=== PATIENT | female | born 1950 | race Caucasian/White ===

== ENCOUNTER 2023-02-16 08:35 | Emergency (ER) | payer MEDICARE, MEDICAID, SELFPAY ==
[2023-02-16 08:38] VITALS: BP 140/54; PULSE 82; RESP 14; TEMP 36.9; O2SAT 99; BMI 23.6
--- NOTE | 2023-02-16 08:45 | XR_ITS ---
WS: [id number] Portable AP upright chest, 02/16/2023 Clinical Data: dyspnea/cough Comparison: None. Findings: No nodules, masses or effusions are seen. The heart is normal. The pulmonary vascularity is not increased. No pneumonia or pneumothorax is seen. The aortic arch and descending thoracic aorta s how calcification and tortuosity. The diaphragms are flattened. XR/XR chest 1V portable [id number] Impression: Atherosclerosis and hyperinflation.
--- NOTE | 2023-02-16 08:46 | ECG_ITS ---
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 Measurements Intervals [place] Rate: 74 P: 92 SD: 183 QRS: 15 QRSD: 86 T: 58 QT: 376 QTc: 419 Interpretive Statements SINUS RHYTHM No previous ECG available for comparison Electronically Signed On 02-16-2023 11:56:53 CDT by Linden Christine M.D. [id number]
--- NOTE | 2023-02-16 08:46 | W.ED.SOB ---
HPI - SOB/Dyspnea General: Chief Complaint: Shortness of Breath/Dyspnea Stated Complaint: SOB Time Seen by Provider: 02/16/23 08:37 Source: patient Mode of arrival: EMS History of Present Illness: HPI Narrative: 72-year-old female who presents to the emergency room with complaints of shortness of breath. She lives in a snf she does not usually use oxygen per her initial report later family corrected and said she has been prescribed but has not been using. She did notice some improvement with the nebulizer she was given in route. She does report a productive cough low-grade subjective fever. MD elicited complaint: shortness of breath and cough Pertinent past history: COPD Onset (ago): hour(s) Timing: constant Severity: moderate Exacerbating factors: coughing Relieving factors: rest and bronchodilators Known history of: COPD Associated symptoms: Reports cough; Deny abdominal pain, chest congestion, chest pain, diaphoresis, dizziness, extremity pain, fever(s), hemoptysis, lightheadedness, myalgias, nausea, orthopnea, palpitations, paresthesias, polydipsia, polyuria, rash, sense of impending doom, syncope or vomiting Treatment prior to arrival: oxygen and bronchodilator Review of Systems Const: Denies: fever(s), chills, fatigue, malaise or diaphoresis ENMT: Denies: throat pain, ear or mastoid pain, nasal discharge or nasal congestion Card: Denies: chest pain, palpitations, lightheadedness, syncope or orthopnea Resp: Reports: dyspnea, productive cough and wheezing; Denies: hemoptysis or chest congestion GI: Denies: abdominal pain, nausea or vomiting : Denies: flank pain, difficulty voiding, dysuria, urinary frequency or urinary urgency Musc: Denies: extremity pain Skin/Breast: Denies: rash or pruritus Neuro: Denies: dizziness Endo: Denies: polyuria or polydipsia PFSH ED PFSH: Medical History (Updated 02/16/23 @ 11:08 by Ji Banegas DO) COPD (chronic obstructive pulmonary disease) Physical Exam Const: GENERAL APPEARANCE: cooperative and comfortable ORIENTATION/CONSCIOUSNESS: Yes awake, Yes oriented to person, Yes oriented to place and Yes oriented to time HENMT: COMMON NORMALS: normocephalic, atraumatic and hearing grossly normal bilaterally HEAD & SCALP: normocephalic and atraumatic Resp: EFFORT & INSPECTION: Yes audible wheezes AUSCULTATION: rhonchi, wheezes and diminished lung sounds Cardio: COMMON NORMALS: regular rate, regular rhythm and No murmurs present (Cardio) RATE: regular rate RHYTHM: regular rhythm GI: COMMON NORMALS: Soft to palpation and No hepatosplenomegaly present AUSCULTATION: Yes normoactive bowel sounds PALPATION: Yes Soft to palpation, No Tenderness to palpation present (GI), No Guarding due to palpation present (GI) and Yes No hepatosplenomegaly present Extremity: COMMON NORMALS: normal to inspection, capillary refill normal, no clubbing, cyanosis or edema, no calf tenderness and no pedal edema Neuro: SENSORIUM/ORIENTATION: Yes oriented to person, Yes oriented to place and Yes oriented to time Skin: COMMON NORMALS: no rashes or lesions noted GENERAL SKIN EXAM: no rashes or lesions noted Course Vital Signs: Vital signs: Vital Signs Temperature 98.5 F 02/16/23 08:38 Pulse Rate 97 02/16/23 10:54 Respiratory Rate 14 02/16/23 10:54 Blood Pressure 124/46 02/16/23 10:54 Pulse Oximetry 98 02/16/23 10:54 Oxygen Delivery Me thod Nasal Cannula 02/16/23 10:54 Oxygen Flow Rate 3 02/16/23 10:54 MDM - SOB/Dyspnea Medical Decision Making Exacerbation of COPD. She will require 3 L by nasal cannula. She has previously been prescribed oxygen but has not been using. Pt has still been smoking. She responded well to the nebulizers. Did been having a productive cough. Will discharge home on steroid taper doxycycline and regular use of DuoNebs. Follow-up with her primary care doctor for the snf. Medical Records I reviewed the patient's medical records. Lab Data I reviewed the patient's lab results. 02/16/23 09:18 02/16/23 09:17 Labs/Radiology: Radiology Impressions Chest X-Ray 02/16/23 08:45 Impression: Atherosclerosis and hyperinflation. Laboratory Results WBC 9.8 10^3/uL (4.0-10.0) 02/16/23 09:18 RBC 3.62 10^6/uL (4.1-5.3) L 02/16/23 09:18 Hgb 9.4 g/dL (11.5-15.3) L 02/16/23 09:18 Hct 32.1 % (37.0-47.0) L 02/16/23 09:18 MCV 88.7 fl (81-99) 02/16/23 09:18 MCH 26.0 pg (28.0-34.0) L 02/16/23 09:18 MCHC 29.3 g/dL (30.0-36.0) L 02/16/23 09:18 RDW 15.1 % (12.1-15.1) 02/16/23 09:18 Plt Count 265 10^3/cmm (130-400) 02/16/23 09:18 MPV 9.3 fL (7.4-10.4) 02/16/23 09:18 Neut % (Auto) 50.8 % 02/16/23 09:18 Lymph % (Auto) 30.2 % 02/16/23 09:18 [place] % (Auto) 8.5 % 02/16/23 09:18 Eos % (Auto) 9.4 % 02/16/23 09:18 Baso % (Auto) 0.7 % 02/16/23 09:18 Neut # (Auto) 4.96 10^3/uL (1.8-7.7) 02/16/23 09:18 Lymph # (Auto) 3.0 10^3/uL (0.8-4.8) 02/16/23 09:18 [place] # (Auto) 0.8 10^3/uL (0.2-0.9) 02/16/23 09:18 Eos # (Auto) 0.9 10^3/uL (0.0-0.8) H 02/16/23 09:18 Baso # (Auto) 0.1 10^3/uL (0.0-0.1) 02/16/23 09:18 Nucleated RBC % (auto) 0 % 02/16/23 09:18 Nucleated RBCs # 0.0 /100WBC 02/16/23 09:18 Specimen Type Arterial 02/16/23 09:17 Sample Site Radial, left 02/16/23 09:17 ABG pH 7.35 (7.35-7.45) 02/16/23 09:17 ABG pCO2 51.3 mmHg (35-45) H 02/16/23 09:17 ABG pO2 45.4 mmHg (80.0-100.0) L 02/16/23 09:17 ABG HCO3 28.3 mmol/L (22-26) H 02/16/23 09:17 ABG O2 Saturation 81.1 02/16/23 09:17 ABG Base Excess 2.0 mmol/L (-2.0-2.0) 02/16/23 09:17 Emmett Test Pos 02/16/23 09:17 A-a O2 Gradient 11.9 mmHg (5-10) H 02/16/23 09:17 Hematocrit 31.8 % (37-47) L 02/16/23 09:17 Hgb O2 Saturation 79.6 % (95-100) L 02/16/23 09:17 Carboxyhemoglobin 1.3 %THgb (0.4-20.1) 02/16/23 09:17 Methemoglobin 0.5 % (0.4-1.5) 02/16/23 09:17 Total Hemoglobin 10.4 g/dL (12-16) L 02/16/23 09:17 Sodium 144.0 mmol/L (131-143) H 02/16/23 09:17 Potassium 4.6 mmol/L (3.5-5.0) 02/16/23 09:17 Glucose 93.0 mg/dL (70-115) 02/16/23 09:17 Ionized Calcium 1.3 mmol/L (1.1-1.4) 02/16/23 09:17 O2 Delivery Device Nc 02/16/23 09:17 O2 Liters/Min 2.0 % 02/16/23 09:17 FiO2 28.0 % 02/16/23 09:17 Welding Technician ID Cak 02/16/23 09:17 Sodium 141 mmol/L (136-145) 02/16/23 09:17 Potassium 4.8 mmol/L (3.5-5.1) 02/16/23 09:17 Chloride 105 mmol/L (98-107) 02/16/23 09:17 Carbon Dioxide 25 mmol/L (22-29) 02/16/23 09:17 Anion Gap 15.8 (5-19) 02/16/23 09:17 BUN 15 mg/dL (8-23) 02/16/23 09:17 Creatinine 1.3 mg/dL (0.5-0.9) H 02/16/23 09:17 GFR Calculation Not Reportable 02/16/23 09:17 Glucose 93 mg/dL (65-115) 02/16/23 09:17 Calculated Osmolality 293 mOsm/kg (285-295) 02/16/23 09:17 Calcium 9.1 mg/dL (8.5-10.5) 02/16/23 09:17 Total Bilirubin 0.2 mg/dL (0.15-1.2) 02/16/23 09:17 AST 24 U/L (0-32) 02/16/23 09:17 ALT 12 U/L (0-33) 02/16/23 09:17 Alkaline Phosphatase 112 U/L (35-105) H 02/16/23 09:17 Troponin T Baseline 12 ng/L (0-10) H 02/16/23 09:17 Total Protein 7.2 g/dL (6.6-8.7) 02/16/23 09:17 Albumin 4.0 g/dL (3.5-5.2) 02/16/23 09:17 Globulin 3.2 g/dL (1.3-4.6) 02/16/23 09:17 Discharge Plan Discharge Patient Disposition: Home Clinical Impression: Acute exacerbation of chronic obstructive airways disease Condition: Stable Prescriptions: New doxycycline hyclate 100 mg capsule 100 mg PO BID 10 Days Qty: 20 0RF prednisone 20 mg tablet 20 mg PO TID Qty: 15 0RF Rx Instructions: 1 p.o. 3 times daily x3 days, 1 p.o. twice daily x2 days, 1 p.o. daily x2 days ipratropium-albuterol 0.5 mg-3 mg(2.5 mg base)/3 mL solution for nebulization 3 ml inhalation Q4H PRN (Reason: shortness of breath or wheezing) Qty: 180 0RF No Action Tylenol 325 mg Tablet 650 mg PO QID PRN (Reason: Pain) hydrocodone-acetaminophen 5-325 mg tablet 1 tab PO BID hydrocodone-acetaminophen 5-325 mg tablet 1 tab PO DAILY PRN (Reason: Pain) Aspir-81 81 mg Tablet,Delayed Release (Dr/Ec) 81 mg PO DAILY simvastatin 40 mg tablet 40 mg PO BEDTIME Milk of Magnesia 400 mg/5 mL Suspension 30 ml PO DAILY PRN (Reason: Constipation) Dulcolax (bisacodyl) 10 mg Suppository 10 mg OK DAILY PRN (Reason: Constipation) ropinirole 0.5 mg tablet 0.5 mg PO BEDTIME magnesium citrate Solution 150 ml PO DAILY PRN (Reason: Constipation) montelukast 10 mg tablet 10 mg PO QPM Dulcolax (bisacodyl) 5 mg Tablet,Delayed Release (Dr/Ec) 5 mg PO DAILY PRN (Reason: Constipation) Mylanta 200-200-20 mg/5 mL Suspension 5 ml PO 5XD PRN (Reason: Constipation) Rx Instructions: administer between meals and at bedtime albuterol sulfate 90 mcg/actuation HFA aerosol inhaler 2 puff INHALATION Q6H PRN (Reason: Shortness Of Breath Or Wheezing) sertraline 50 mg tablet 75 mg PO BEDTIME loratadine 10 mg Tablet 10 mg PO DAILY Multivitamin w/Minerals, Iron Tablet 1 tab PO DAILY bupropion HCl 300 mg tablet extended release 24 hr 300 mg PO DAILY sertraline 100 mg tablet 100 mg PO QPM Discharge Orders: Discharge ED (Routine); Ordered 02/16/23 Ordered By: Ji Banegas Discharge Diet: Usual diet Discharge Activity: Increase activity as tolerated Patient Instructions: COPD (Chronic Obstructive Pulmonary Disease) (ED), Opioid Safety, Pain Management Activity Restrictions/Additional Instructions: You were seen today for evaluation of your breathing. Chest x-ray did not show an acute infiltrates. Given your productive cough and wheezing with your history of COPD recommend a steroid taper as well as regular use of albuterol ipratropium bromide nebulizers and doxycycline 1 tablet twice daily for 10 days. Follow-up with your regular doctor at the snf. Also recommend that you wear oxygen 3 L/min continuously. Coding Level of Care Code ED Compression Molding Machine Setter for Olga Solo
[2023-02-16 09:03] VITALS: PULSE 75; RESP 20; O2SAT 96
[2023-02-16] MEDS: ipratropium-albuterol 3 mL Neb INHALATION ×2 (09:03→09:36)
[2023-02-16 09:24] VITALS: PULSE 79
[2023-02-16 09:28] LABS: ABG PCO2 51.3 mmHg (35-45); ABG PH Result 7.35 (7.35-7.45); Alveolar-Arterial Oxygen Gradi 11.9 mmHg (5-10); Arterial Blood Gas Hematocrit 31.8 % (37-47); Blood Gas Allen Test Pos; Blood Gas Operator Identificat CAK; Blood Gas Sample Site Radial, left; Blood Gas Sample Type Arterial; Carboxyhemoglobin 1.3 %THgb (0.4-20.1); HCO3 ABG 28.3 mmol/L (22-26); HGB O2 Sat 79.6 % (95-100); Ionized Calcium Level - ABG 1.3 mmol/L (1.1-1.4); Methemoglobin 0.5 % (0.4-1.5); Oxygen Device NC; Oxygen Saturation ABG 81.1; PO2 ABG 45.4 mmHg (80.0-100.0); Potassium Level - ABG 4.6 mmol/L (3.5-5.0); Total Hemoglobin 10.4 g/dL (12-16)
[2023-02-16 09:31] LABS: Basophils # 0.1 10^3/uL (0.0-0.1); Basophils % 0.7 %; Eosinophils # 0.9 10^3/uL (0.0-0.8); Eosinophils % 9.4 %; Hematocrit 32.1 % (37.0-47.0); Hemoglobin 9.4 g/dL (11.5-15.3); Lymphocytes % 30.2 %; Mean Corpuscular HGB Conc 29.3 g/dL (30.0-36.0); Mean Corpuscular Volume 88.7 fl (81-99); Mean Platelet Volume 9.3 fL (7.4-10.4); Monocytes # 0.8 10^3/uL (0.2-0.9); Monocytes % 8.5 %; Neutrophils # 4.96 10^3/uL (1.8-7.7); Neutrophils % 50.8 %; Nucleated Red Blood Cells % 0 %; Platelet Count 265 10^3/cmm (130-400); Red Blood Count 3.62 10^6/uL (4.1-5.3); Red Cell Distribution Width 15.1 % (12.1-15.1); White Blood Count 9.8 10^3/uL (4.0-10.0)
[2023-02-16] MEDS: dexamethasone 10 mg/mL INJ IVP (09:31)
[2023-02-16 09:37] VITALS: PULSE 75; RESP 24; O2SAT 99
[2023-02-16 09:50] LABS: Alanine Aminotransferase 12 U/L (0-33); Alkaline Phosphatase 112 U/L (35-105); Anion Gap 15.8 (5-19); Aspartate Amino Transferase 24 U/L (0-32); Blood Urea Nitrogen 15 mg/dL (8-23); Calcium 9.1 mg/dL (8.5-10.5); Carbon Dioxide 25 mmol/L (22-29); Chloride 105 mmol/L (98-107); Globulin 3.2 g/dL (1.3-4.6); Glucose 93 mg/dL (65-115); Osmolality Calculated 293 mOsm/kg (285-295); Potassium 4.8 mmol/L (3.5-5.1); Sodium 141 mmol/L (136-145); Total Bilirubin 0.2 mg/dL (0.15-1.2); Total Protein 7.2 g/dL (6.6-8.7)
[2023-02-16 09:52] LABS: Troponin(5th) Baseline 12 ng/L (0-10)
--- NOTE | 2023-02-16 10:51 | ECG_ITS ---
[facility] Test Date: 2023-02-16 Pat Name: Ev Chaves Department: Room: Gender: Female Bargain Table Clerk: : 1950 Requested By: Ji Pedraza Order Number: [id number] Reading MD: Linden Christine M.D. Measurements Intervals [place] Rate: 77 P: 75 RI: 180 QRS: 9 QRSD: 89 T: 54 QT: 385 QTc: 438 Interpretive Statements SINUS RHYTHM Compared to ECG 02/16/2023 09:02:34 No significant changes Electronically Signed On 02-16-2023 11:59:51 CDT by Linden Christine M.D. [email or web address] [email or web address] river gulfportCodeMonkey Studiosohiohealth arthur g.h. bing, md, cancer centerELENZA/store/OM/[id number]
[2023-02-16 10:54] VITALS: BP 124/46; PULSE 97; RESP 14; O2SAT 98
== END 2023-02-16 14:32 | disposition home or self-care (01) ==
PROVIDERS: Emergency Provider Family Medicine; PCP Student in an Organized Health Care Education/Training Program
DX: J44.1 Chronic obstructive pulmonary disease with (acute) exacerbation (principal); Z79.82 Long term (current) use of aspirin
CPT/HCPCS: 36415; 36600; 71045; 80051; 80053; 82330; 82805; 84484; 85025; 87070; 87077; 87186; 87205; 93005; 94640; 96374; 99285; J1100

== ENCOUNTER 2023-08-03 19:25 | Inpatient (IN) | payer MEDICARE, MEDICAID, SELFPAY ==
[2023-08-03] VITALS (7 sets, daily range): BP systolic 98–120; BP diastolic 59–84; PULSE 81–103; RESP 16–25; TEMP 36.4–36.6; O2SAT 95–100; BMI 20.9
--- NOTE | 2023-08-03 19:34 | XRR_ITS ---
PROCEDURE INFORMATION: Exam: XR Chest Exam date and time: 08/03/2023 7:44 PM Age: 73 years old Clinical indication: Shortness of breath; Patient HX: Respiratory distress; Copd TECHNIQUE: Imaging protocol: Radiologic exam of the chest. Views: 1 view. COMPARISON: CR XR chest 1V portable [id number] 02/16/2023 9:44 AM FINDINGS: Lungs: Lungs are hyperinflated. Clear parenchyma. Pleural spaces: No pleural effusion. No pneumothorax. Heart/Mediastinum: Cardiac silhouette is normal in size for technique. Vasculature: Calcified aortic arch without dilation. Bones/joints: Age appropriate. XR/XR chest 1V portable [id number] IMPRESSION: Hyperinflated but clear lungs. No other acute cardiopulmonary abnormality. No change from prior.
--- NOTE | 2023-08-03 19:35 | ECG_ITS ---
[facility] Test Date: 2023-08-03 Pat Name: Ev Chaves Department: Room: Gender: Female Warehouse Manager: : 1950 Requested By: Stas Brunson Order Number: [id number] Theo MD: Alaina Haile M.D. Measurements Intervals [place] Rate: 89 P: 0 [place]: 0 QRS: 38 QRSD: 96 T: 70 QT: 363 QTc: 442 Interpretive Statements SUPRAVENTRICULAR RHYTHM ABNORMAL RHYTHM ECG Compared to ECG 02/16/2023 10:51:49 Supraventricular rhythm now present Sinus rhythm no longer present Electronically Signed On 08-03-2023 22:23:38 CDT by Alaina Haile M.D. [email or web address]/[id number]
--- NOTE | 2023-08-03 19:36 | ED_ITS ---
HPI - SOB/Dyspnea General: Chief Complaint: Shortness of Breath/Dyspnea Stated Complaint: RESP. DISTRESS Time Seen by Provider: 08/03/23 19:28 History of Present Illness: HPI Narrative: 73-year-old female senior living patient from [place]. She presents short of breath. According to senior living staff, she was in her normal state of health until earlier today. She suddenly became short of breath. She is experiencing some mild chest discomfort, but very short of breath. No fever. She says she has not gained water weight she believes. No increased swelling. No significant cough or sputum production by the patient's history, although she does have a history of dementia. She was placed on CPAP by the EMS crew with improvement in oxygenation status. She was also given nitroglycerin for increased blood pressure, as well as albuterol treatments. Associated symptoms: Reports chest pain (Mild); Deny abdominal pain, fever(s), nausea or vomiting Review of Systems Const: Denies: fever(s) ENMT: Denies: throat pain Card: Reports: chest pain (Mild); Denies: swelling of feet/ankles Resp: Reports: dyspnea; Denies: productive cough or non-productive cough GI: Denies: abdominal pain, nausea or vomiting PFSH ED PFSH: Medical History COPD (chronic obstructive pulmonary disease) Dementia Social History Smoking and tobacco/nicotine status: current every day tobacco/nicotine user Physical Exam Const: GENERAL APPEARANCE: cooperative and ill appearing HENMT: COMMON NORMALS: normocephalic and atraumatic HEAD & SCALP: normocephalic and atraumatic FACE & SINUS: normal facial exam Eye: COMMON NORMALS: Equal, round and reactive pupils present and EOMs intact bilaterally PUPIL: Yes Equal, round and reactive pupils present Neck/C-Spine: GENERAL: Yes trachea midline Chest: CHEST: Yes Symmetrical chest wall rise Resp: EFFORT & INSPECTION: No able to speak in complete sentences and Yes tachypneic AUSCULTATION: rales and diminished lung sounds Cardio: COMMON NORMALS: regular rate and regular rhythm RATE: regular rate RHYTHM: regular rhythm GI: COMMON NORMALS: Normal to inspection, nondistended, normoactive bowel sounds present Extremity: COMMON NORMALS: no pedal edema Course Vital Signs: Vital signs: Vital Signs Temperature 97.8 F 08/04/23 03:55 Pulse Rate 85 08/04/23 03:55 Respiratory Rate 16 08/04/23 03:55 Blood Pressure 110/68 08/04/23 03:55 Pulse Oximetry 99 08/04/23 03:55 Oxygen Delivery Me thod BiPAP 08/04/23 03:55 Fraction of Inspir ed Oxygen 50 08/03/23 19:48 MDM - SOB/Dyspnea Medical Decision Making Patient is placed on BiPAP on arrival. Saturations on nonrebreather mask on her arrival were in the high 80s. She is currently 95% on BiPAP. Blood pressure 102/59. She is awake and talking. Much improved on BiPAP ventilation. Saturations are 100%. Sinus at 83 blood pressure 117/71. Respiration rate is down. White blood cell count is 14. No infiltrate on chest x-ray. First troponin is elevated. No ischemic EKG changes associated with this. ABG shows a pH of 7.31 with PCO2 of 50 and a PO2 of 100. This is at 0.5 FiO2. Lung sounds are wet, but BNP is only 178. Blood pressures improved now as well. She is given DuoNeb treatments, Solu-Medrol. She will be admitted for COPD exacerbation with hypercapnic hypoxic respiratory failure. Hospitalist will see the patient. She is a DNR. Lab Data 08/04/23 01:29 08/04/23 01:29 Labs/Radiology: Radiology Impressions Chest X-Ray 08/03/23 19:34 IMPRESSION: Hyperinflated but clear lungs. No other acute cardiopulmonary abnormality. No change from prior. Laboratory Results WBC 13.99 10^3/uL (3.29-11.43) H 08/03/23 19:45 RBC 3.91 10^6/uL (3.85-5.65) 08/03/23 19:45 Hgb 10.50 g/dL (11.27-16.99) L 08/03/23 19:45 Hct 34.8 % (36-47) L 08/03/23 19:45 MCV 89.0 fl (85-98) 08/03/23 19:45 MCH 26.9 pg (27-33) L 08/03/23 19:45 MCHC 30.2 g/dL (30-55) 08/03/23 19:45 RDW 17.2 % (12.1-15.1) H 08/03/23 19:45 Plt Count 319 10^3/cmm (157-399) 08/03/23 19:45 MPV 10.1 fL (7.4-10.4) 08/03/23 19:45 Neut % (Auto) 60.2 % 08/03/23 19:45 Lymph % (Auto) 26.1 % 08/03/23 19:45 [place] % (Auto) 6.1 % 08/03/23 19:45 Eos % (Auto) 6.6 % 08/03/23 19:45 Baso % (Auto) 0.6 % 08/03/23 19:45 Neut # (Auto) 8.42 10^3/uL (1.8-7.7) H 08/03/23 19:45 Lymph # (Auto) 3.7 10^3/uL (0.8-4.8) 08/03/23 19:45 [place] # (Auto) 0.9 10^3/uL (0.2-0.9) 08/03/23 19:45 Eos # (Auto) 0.9 10^3/uL (0.0-0.8) H 08/03/23 19:45 Baso # (Auto) 0.1 10^3/uL (0.0-0.1) 08/03/23 19:45 Nucleated RBC % (auto) 0 % 08/03/23 19:45 Nucleated RBCs # 0.0 /100WBC 08/03/23 19:45 Specimen Type Arterial 08/03/23 19:37 Sample Site Brachial, left 08/03/23 19:37 ABG pH 7.31 (7.35-7.45) L 08/03/23 19:37 ABG pCO2 50.1 mmHg (35-45) H 08/03/23 19:37 ABG pO2 103.0 mmHg (80.0-100.0) H 08/03/23 19:37 ABG HCO3 25.3 mmol/L (22-26) 08/03/23 19:37 ABG Base Excess -1.3 mmol/L (-2.0-2.0) 08/03/23 19:37 Emmett Test N/a 08/03/23 19:37 Hematocrit 32.7 % (37-47) L 08/03/23 19:37 Hgb O2 Saturation 96.6 % (95-100) 08/03/23 19:37 Carboxyhemoglobin 1.9 %THgb (0.4-20.1) 08/03/23 19:37 Methemoglobin 0.4 % (0.4-1.5) 08/03/23 19:37 Total Hemoglobin 10.7 g/dL (12-16) L 08/03/23 19:37 O2 Delivery Device Bipap 08/03/23 19:37 FiO2 50.0 % 08/03/23 19:37 Dentofacial Orthopedics Dentist ID [email or web address] 08/03/23 19:37 Sodium 138 mmol/L (136-145) 08/03/23 20:41 Potassium 4.4 mmol/L (3.5-5.1) 08/03/23 20:41 Chloride 102 mmol/L (98-107) 08/03/23 20:41 Carbon Dioxide 28 mmol/L (22-29) 08/03/23 20:41 Anion Gap 12.4 (5-19) 08/03/23 20:41 BUN 16 mg/dL (8-23) 08/03/23 20:41 Creatinine 1.4 mg/dL (0.5-0.9) H 08/03/23 20:41 GFR Calculation Not Reportable 08/03/23 20:41 Glucose 155 mg/dL (65-115) H 08/03/23 20:41 Calculated Osmolality 290 mOsm/kg (285-295) 08/03/23 20:41 Lactic Acid 1.3 mmol/L (0.5-2.2) 08/03/23 19:45 Calcium 9.3 mg/dL (8.5-10.5) 08/03/23 20:41 Total Bilirubin 0.2 mg/dL (0.15-1.2) 08/03/23 20:41 AST 17 U/L (0-32) 08/03/23 20:41 ALT 10 U/L (0-33) 08/03/23 20:41 Alkaline Phosphatase 128 U/L (35-105) H 08/03/23 20:41 Troponin T Baseline 68 ng/L (0-10) H 08/03/23 19:45 NT-Pro-B Natriuret Pep 178 pg/mL (0-450) 08/03/23 19:45 Total Protein 7.0 g/dL (6.6-8.7) 08/03/23 20:41 Albumin 4.0 g/dL (3.5-5.2) 08/03/23 20:41 Globulin 3.0 g/dL (1.3-4.6) 08/03/23 20:41 All radiology interpretation(s) finalized by discharge Discharge Plan Discharge Patient Disposition: Admitted As Inpatient Admit Provider: Pablo Powers Clinical Impression: Acute exacerbation of chronic obstructive airways disease, Acute respiratory fa ilure with hypoxia and hypercapnia Condition: Stable Coding Level of Care Code ED Lime Mixer for Olga Solo
[2023-08-03 19:46] LABS: ABG PCO2 50.1 mmHg (35-45); ABG PH Result 7.31 (7.35-7.45); Arterial Blood Gas Hematocrit 32.7 % (37-47); Base Excess ABG -1.3 mmol/L (-2.0-2.0); Blood Gas Sample Site Brachial, left; Blood Gas Sample Type Arterial; Carboxyhemoglobin 1.9 %THgb (0.4-20.1); HCO3 ABG 25.3 mmol/L (22-26); HGB O2 Sat 96.6 % (95-100); Methemoglobin 0.4 % (0.4-1.5); Oxygen Device BIPAP; Total Hemoglobin 10.7 g/dL (12-16)
[2023-08-03 19:57] LABS: Basophils # 0.1 10^3/uL (0.0-0.1); Basophils % 0.6 %; Eosinophils # 0.9 10^3/uL (0.0-0.8); Eosinophils % 6.6 %; Hematocrit 34.8 % (36-47); Lymphocytes # 3.7 10^3/uL (0.8-4.8); Lymphocytes % 26.1 %; Mean Corpuscular HGB Conc 30.2 g/dL (30-55); Mean Corpuscular Hemoglobin 26.9 pg (27-33); Mean Platelet Volume 10.1 fL (7.4-10.4); Monocytes # 0.9 10^3/uL (0.2-0.9); Monocytes % 6.1 %; Neutrophils # 8.42 10^3/uL (1.8-7.7); Neutrophils % 60.2 %; Nucleated Red Blood Cells % 0 %; Platelet Count 319 10^3/cmm (157-399); Red Blood Count 3.91 10^6/uL (3.85-5.65); Red Cell Distribution Width 17.2 % (12.1-15.1); White Blood Count 13.99 10^3/uL (3.29-11.43)
[2023-08-03] MEDS: FUROsemide 10 mg/mL SDV 10mL 80 MG IVP (20:18)
[2023-08-03 20:39] LABS: Lactic Sepsis W/Reflex 1.3 mmol/L (0.5-2.2)
[2023-08-03 20:43] LABS: Troponin(5th) Baseline 68 ng/L (0-10)
[2023-08-03 20:48] LABS: NT Pro B Type Natriuretic Pept 178 pg/mL (0-450)
[2023-08-03 21:13] LABS: Alanine Aminotransferase 10 U/L (0-33); Alkaline Phosphatase 128 U/L (35-105); Anion Gap 12.4 (5-19); Aspartate Amino Transferase 17 U/L (0-32); Blood Urea Nitrogen 16 mg/dL (8-23); Calcium 9.3 mg/dL (8.5-10.5); Carbon Dioxide 28 mmol/L (22-29); Chloride 102 mmol/L (98-107); Glucose 155 mg/dL (65-115); Osmolality Calculated 290 mOsm/kg (285-295); Potassium 4.4 mmol/L (3.5-5.1); Sodium 138 mmol/L (136-145); Total Bilirubin 0.2 mg/dL (0.15-1.2)
[2023-08-03 22:14] LABS: Troponin 5 2HR 198.5 ng/L (0-10); Troponin 5 2HR Delta 130.5 ABS# (0-10)
--- NOTE | 2023-08-03 22:14 | P.HP_ITS ---
Providers/Chief Complaint Primary Care Provider: Fred Treviño Chief Complaint: RESP. DISTRESS History of Present Illness Pleasant 73-year-old lady with history of COPD on 3L NC, cigarette dependence, dementia, CKD, assisted resident, was brought into the ER for evaluation due to confusion, shortness of breath, oxygen saturations found to be in the 60s on 4 L nasal cannula, was started on nonrebreather by EMS with improvement up to low to mid 80s. Also hypertensive. Received albuterol neb, nitroglycerin, in ER had to be started on BiPAP support, persistent hypoxia, ABG with respiratory acidosis, also received additional nebulization, Solu-Medrol, dose of Lasix. Improved slightly but could not wean off of BiPAP to nonrebreather recurrent desaturation, at this time BiPAP. She has dementia, unable to provide significant history, history of a review of systems, does state she has been having productive cough. Review of Systems Const: Denies: fever(s), chills, body aches or malaise ENMT: Denies: throat pain Card: Denies: chest pain, edema, pre-syncope or dyspnea on exertion Resp: Reports: dyspnea and productive cough; Denies: change in phlegm color or hemoptysis GI: Denies: abdominal pain, nausea, vomiting, diarrhea, constipation, hematochezia or melena : Denies: flank pain, urinary frequency or hematuria Musc: Denies: back pain, joint swelling or joint redness Skin/Breast: Denies: rash or new lesions Neuro: Denies: headache(s), numbness in extremities, weakness in extremities, dizziness, confusion or seizure-like activity Medications/Allergies Home Medications Medication Instructions Recorded Confirmed Last Taken Type acetaminophen 325 mg tablet 650 mg PO QID PRN Pain 02/16/23 02/16/23 Unknown History (Tylenol) albuterol sulfate 90 mcg/actuation 2 puff inhalation Q6H PRN 02/16/23 02/16/23 02/16/23 History aerosol inhaler Shortness Of Breath Or Wheezing aluminum-mag hydroxide-simethicone 5 ml PO 5XD PRN Constipation 02/16/23 02/16/23 Unknown History 200 mg-200 mg-20 mg/5 mL oral susp aspirin 81 mg tablet,delayed 81 mg PO DAILY 02/16/23 02/16/23 Unknown History release bisacodyl 10 mg rectal suppository 10 mg TX DAILY PRN Constipation 02/16/23 02/16/23 Unknown History (Dulcolax (bisacodyl)) bisacodyl 5 mg tablet,delayed 5 mg PO DAILY PRN Constipation 02/16/23 02/16/23 Unknown History release (Dulcolax (bisacodyl)) bupropion HCl 300 mg 24 hr tablet, 300 mg PO DAILY 02/16/23 02/16/23 Unknown History extended release geriatric [id number] 1 tab PO DAILY 02/16/23 02/16/23 Unknown History hydrocodone 5 mg-acetaminophen 325 1 tab PO BID 02/16/23 02/16/23 Unknown History mg tablet hydrocodone 5 mg-acetaminophen 325 1 tab PO DAILY PRN Pain 02/16/23 02/16/23 Unknown History mg tablet ipratropium 0.5 mg-albuterol 3 mg 3 ml inhalation Q4H PRN shortness 02/16/23 Unknown Rx (2.5 mg base)/3 mL nebulization of breath or wheezing #180 mL soln loratadine 10 mg tablet 10 mg PO DAILY 02/16/23 02/16/23 Unknown History magnesium citrate 150 ml PO DAILY PRN Constipation 02/16/23 02/16/23 Unknown History magnesium hydroxide 400 mg/5 mL 30 ml PO DAILY PRN Constipation 02/16/23 02/16/23 Unknown History oral suspension (Milk of Magnesia) montelukast 10 mg tablet 10 mg PO QPM 02/16/23 02/16/23 Unknown History prednisone 20 mg tablet 20 mg PO TID #15 tabs 02/16/23 Unknown Rx ropinirole 0.5 mg tablet 0.5 mg PO BEDTIME 02/16/23 02/16/23 Unknown History sertraline 100 mg tablet 100 mg PO QPM 02/16/23 02/16/23 Unknown History sertraline 50 mg tablet 75 mg PO BEDTIME 02/16/23 02/16/23 Unknown History simvastatin 40 mg tablet 40 mg PO BEDTIME 02/16/23 02/16/23 Unknown History Allergies Allergy/AdvReac Type Severity Reaction Status Date / Time Penicillins Allergy Unknown Verified 02/16/23 09:30 tiotropium Allergy Unknown Verified 02/16/23 09:30 [From Spiriva with HandiHaler] PFSH Acute PFSH: Medical History COPD (chronic obstructive pulmonary disease) Dementia Social History Smoking and tobacco/nicotine status: current every day tobacco/nicotine user Vitals/I&O/Wt Last Vital Signs Temp 97.6 F 08/03/23 19:29 Pulse 96 08/03/23 21:23 Resp 21 H 08/03/23 21:23 BP 120/82 08/03/23 21:23 Pulse Ox 100 08/03/23 21:23 O2 Del Method BiPAP 08/03/23 20:22 FiO2 50 08/03/23 19:48 Weight last 48 hrs Weight 58.967 kg Physical Exam Const: GENERAL APPEARANCE: cooperative ORIENTATION/CONSCIOUSNESS: Yes awake HENMT: COMMON NORMALS: oropharynx normal Neck/C-Spine: COMMON NORMALS: no JVD Resp: AUSCULTATION: diminished lung sounds Cardio: COMMON NORMALS: no JVD, regular rhythm, S1 normal heart sound present, S2 normal heart sound present and No murmurs present (Cardio) RHYTHM: regular rhythm HEART SOUNDS: S1 normal heart sound present and S2 normal heart sound present GI: COMMON NORMALS: Normal to inspection, nondistended, normoactive bowel sounds present, Soft to palpation and non-tender PALPATION: Yes Soft to palpation Extremity: COMMON NORMALS: no joint enlargement and no pedal edema Neuro: COMMON NORMALS: moves all extremities SENSORIUM/ORIENTATION: Yes alert Data 08/03/23 19:45 08/03/23 20:41 A&P Assessment and plan (1) Acute respiratory failure with hypoxia and hypercapnia: Reviewed vitals, ABG, CBC, CMP, chest x-ray, EKG, troponin series baseline and 2-hour so far, NT-proBNP. Discussed with ER physician, ER documentation reviewed. She is unable to provide history, history is to be obtained from records, including transfer records, as well as ER staff. Acute hypoxic and hypercapnic respiratory failure secondary to severe exacerbation of COPD. Respiratory viral panel has been requested and pending. Requiring BiPAP support, could not wean back down to nasal breather. Initially consideration of CHF, but does not appear to have symptoms, no obvious congestion on chest x-ray on my interpretation, NT proBNP not elevated. Treatment for COPD exacerbation, BiPAP support, wean down as tolerating. Continue treatment with IV steroids with Solu-Medrol, empiric antibiotic coverage, has an allergy noted, will provide coverage with Levaquin at this time. Collect sputum culture. Sputum culture from February noted. CODE STATUS is DNR which was confirmed with family in ER, but she is not on hospice. (2) Acute exacerbation of chronic obstructive airways disease: As above. Plan History of dementia Left toe wound: Wound care CKD: Renal function appears at baseline Attestations Medical Necessity Statement*: Admission of over 2 midnights anticipated for assessment management of hypoxic and hypercapnic respiratory failure. Diagnoses Acute respiratory failure with hypoxia and hypercapnia J96.01; J96.02 Acute exacerbation of chronic obstructive airways disease J44.1
[2023-08-03] MEDS: levofloxacin-dextrose 5 % 750 MG/150 ML PREMIX 100 MG IV (23:27)
[2023-08-03] MEDS: heparin 5,000 unit/mL INJ 1 mL 5000 UNIT SUBCUT (23:30)
[2023-08-04] VITALS (9 sets, daily range): BP systolic 95–110; BP diastolic 62–68; PULSE 72–86; RESP 16–18; TEMP 36.6–36.8; O2SAT 97–99
[2023-08-04 01:00] LABS: Adenovirus Not Detected (NOT DETECT); Chlamydia Pneumoniae Not Detected (NOT DETECT); Coronavirus 229E,HKU1,NL63,OC4 Not Detected (NOT DETECT); Human Metapneumovirus Not Detected (NOT DETECT); Human Rhinovirus/Enterovirus Not Detected (NOT DETECT); Influenza A Not Detected (NOT DETECT); Influenza A H1 Not Detected (NOT DETECT); Influenza A H1-2009 Not Detected (NOT DETECT); Influenza A H3 Not Detected (NOT DETECT); Influenza B Not Detected (NOT DETECT); Mycoplasma Pneumoniae Not Detected (NOT DETECT); Parainfluenza Virus Type 1 Not Detected (NOT DETECT); Parainfluenza Virus Type 2 Not Detected (NOT DETECT); Parainfluenza Virus Type 3 Not Detected (NOT DETECT); Parainfluenza Virus Type 4 Not Detected (NOT DETECT); Respiratory Syncytial Virus A Not Detected (NOT DETECT); Respiratory Syncytial Virus B Not Detected (NOT DETECT); SARS-COV-2 Not Detected (NOT DETECT)
[2023-08-04 01:48] LABS: Basophils # 0.1 10^3/uL (0.0-0.1); Basophils % 0.6 %; Eosinophils # 0.2 10^3/uL (0.0-0.8); Eosinophils % 1.7 %; Hematocrit 34.7 % (36-47); Lymphocytes # 2.5 10^3/uL (0.8-4.8); Lymphocytes % 27.3 %; Mean Corpuscular HGB Conc 30.5 g/dL (30-55); Mean Corpuscular Hemoglobin 26.6 pg (27-33); Mean Corpuscular Volume 87.2 fl (85-98); Mean Platelet Volume 9.4 fL (7.4-10.4); Monocytes # 0.8 10^3/uL (0.2-0.9); Monocytes % 9.2 %; Neutrophils # 5.54 10^3/uL (1.8-7.7); Neutrophils % 60.9 %; Nucleated Red Blood Cells % 0 %; Platelet Count 293 10^3/cmm (157-399); Red Blood Count 3.98 10^6/uL (3.85-5.65); Red Cell Distribution Width 16.7 % (12.1-15.1); White Blood Count 9.09 10^3/uL (3.29-11.43)
[2023-08-04 02:16] LABS: Anion Gap 14.6 (5-19); Blood Urea Nitrogen 16 mg/dL (8-23); Calcium 9.8 mg/dL (8.5-10.5); Carbon Dioxide 28 mmol/L (22-29); Chloride 103 mmol/L (98-107); Glucose 121 mg/dL (65-115); Osmolality Calculated 294 mOsm/kg (285-295); Potassium 4.6 mmol/L (3.5-5.1); Sodium 141 mmol/L (136-145)
[2023-08-04 02:18] LABS: Troponin 5 6HR 254.6 ng/L (0-10); Troponin 5 6HR Delta 186.6 ng/L (0-12)
[2023-08-04] MEDS: aspirin 325 mg Tablet PO (03:37)
[2023-08-04] MEDS: enoxaparin 60 mg/0.6 mL Syringe SUBCUT ×2 (03:37→16:01)
[2023-08-04] MEDS: methylPREDNISolone sod succ 40 MG in water for injection-sterile 1 ML 12 MG IVP ×3 (04:39→23:09)
--- NOTE | 2023-08-04 06:00 | USCV_ITS ---
Ev Chaves Age: 73 Gender: F : 1950 Exam Date: 08/04/2023 08:10 Ordering Phys: Pablo Powers MD Technologist: Fuentes Briggs Exam Location: [facility] [place] Indication: resp fail BP: 110 / 68 HR: 78 Rhythm: Sinus Technical Quality: Adequate MEASUREMENTS (Male / Female) Normal Values 2D ECHO LVOT Diameter 2.1 cm LV Ejection Fraction MOD 2C 71.7 % LV Ejection Fraction 2C AL 73.2 % LA Diameter 3.2 cm LA Width 2.4 cm LA Height 4.4 cm RA Width 2.1 cm RA Height 3.7 cm Aorta at Sinotubular Diameter 1.9 cm IVC Diameter 1.8 cm M-MODE Aortic Annulus Diameter 2.3 cm LA Ao Ratio MM 1.4 DOPPLER AV Peak Velocity 232.7 cm/s LVOT Peak Velocity 124.0 cm/s AV Area Cont Eq vti 1.9 cm squared AV Area Cont Eq pk 1.8 cm squared MV Peak Velocity 144.0 cm/s MV Area PHT 3.4 cm squared Mitral E to A Ratio 0.7 MV E' Velocity 42.5 cm/s Mitral E to MV E' Ratio 8.5 Mitral E to LV E' Lateral Ratio 11.3 Mitral E to LV E' Septal Ratio 6.8 TR Peak Velocity 265.5 cm/s TR Peak Gradient 28.2 mmHg TR Mean Velocity 203.1 cm/s TR Mean Gradient 17.2 mmHg TR Velocity Time Integral 58.4 cm Right Atrial Pressure 3.0 mmHg Pulmonary Artery Systolic Pressu 31.2 mmHg PV Peak Velocity 110.0 cm/s RV Acceleration Time 0.1 s RV Ejection Time 0.2 s RV AcT/ET 0.4 FINDINGS Left Ventricle Left ventricle is normal size. LV systolic function is normal with EF of 55 to 60%. No regional wall motion abnormalities are seen. Grade 1 diastolic dysfunction noted. Right Ventricle Normal in size and function Right Atrium Normal in size Left Atrium Normal in size Mitral Valve Structurally normal mitral valve. Mild mitral regurgitation. Aortic Valve Structurally normal aortic valve. Mild aortic stenosis with aortic valve area of 1.74 cm squared and mean gradient across aortic valve of 12 mmHg. Tricuspid Valve Mild tricuspid regurgitation. Pulmonary artery systolic pressure is normal. Pulmonic Valve Not well visualized Pericardium Normal Aorta Normal in size IVC Appears to be normal CONCLUSIONS LV systolic function is normal with EF of 55-60% Grade 1 diastolic dysfunction Mild mitral regurgitation Mild aortic stenosis Mild tricuspid regurgitation No comparison studies are available. Linden Christine MD (Electronically Signed) Final Date: 04 August 2023 10:53 S
[2023-08-04] MEDS: aspirin 81 mg EC Tablet PO (08:38)
[2023-08-04] MEDS: buPROPion XL (24 HR) 300 mg Tablet PO (08:38)
--- NOTE | 2023-08-04 10:38 | PC.PHAR ---
pt is from [facility]-medications entered are from the mar that was sent with the pt when they came in
--- NOTE | 2023-08-04 10:55 | PM.PN ---
Subjective Subjective: Patient is stating that she wants to go back to the [facility] She is stating that she smokes 7 to 8 cigarettes a day She is pleasant and cooperative during my evaluation We will give her mechanical soft diet No active chest pain or shortness of breath Doing well on 2 L nasal cannula Echo did not show any wall motion abnormality EF is 55 to 60% Grade 1 diastolic function She may benefit from a cardiac stress test on Sunday Continue ACS protocol for now Vitals/I&O/Wt Last Vital Signs Temp 97.8 F 08/04/23 08:00 Pulse 86 08/04/23 10:29 Resp 18 08/04/23 10:29 BP 102/65 08/04/23 08:00 Pulse Ox 98 08/04/23 10:29 O2 Del Method Oxymask 08/04/23 10:29 O2 Flow Rate 3 08/04/23 10:29 FiO2 50 08/03/23 19:48 08/03/23 08/04/23 08/04/23 22:59 06:59 14:59 Intake Total 151 / 151 Output Total 1300 / 1300 Balance -1149 / -1149 Weight last 48 hrs Weight 58.967 kg Physical Exam Narrative: Awake and alert Euvolemic GCS 15 Currently on 2 L S1, S2 No active chest pain Pleasant cooperative Nonfocal neuro exam EOMI, PERRLA Urinary Catheter Management: Bennett Latex: Cath Placed During This Visit: no Reason for Continuing Indwelling Catheter: Other Data 08/04/23 01:29 08/04/23 01:29 A&P Assessment and plan (1) Acute exacerbation of chronic obstructive airways disease: (2) COPD (chronic obstructive pulmonary disease): (3) Delirium: (4) Non-STEMI (non-ST elevated myocardial infarction): Plan Acute COPD exacerbation Currently on 2 to 3 L of oxygen No active chest pain or shortness of breath Continue DuoNeb treatment Afebrile No leukocytosis Non-STEMI Likely type II NM, echo did not show any wall motion abnormality, may benefit From stress test on Sunday I would continue ACS protocol for 48 hours Will request D-dimer Acute on chronic hypoxic hypercarbic respite failure Patient mentation has improved, metabolic encephalopathy was related to hypercarbia She may benefit from BiPAP overnight again DNR/DNI Patient has dementia Active smoker We will start her on mechanical soft diet Disposition plan: Back to the facility on Sunday Attestations Medical Necessity Statement*: Continue medical management Diagnoses Acute exacerbation of chronic obstructive airways disease J44.1 COPD (chronic obstructive pulmonary disease) J44.9 Delirium R41.0 Non-STEMI (non-ST elevated myocardial infarction) I21.4
[2023-08-04] MEDS: montelukast sodium 10 mg Tablet PO (17:25)
[2023-08-04] MEDS: sertraline 100 mg Tablet PO (17:25)
[2023-08-04] MEDS: atorvastatin 40 mg Tablet PO (20:48)
[2023-08-04] MEDS: ropinirole 0.25 mg Tablet 0.5 MG PO (20:48)
[2023-08-04] MEDS: sertraline 50 mg Tablet 75 MG PO (20:49)
[2023-08-05] VITALS (12 sets, daily range): BP systolic 96–129; BP diastolic 64–80; PULSE 72–90; RESP 13–18; TEMP 36.3–36.8; O2SAT 96–98
[2023-08-05] MEDS: enoxaparin 60 mg/0.6 mL Syringe SUBCUT ×2 (04:23→14:54)
[2023-08-05 04:25] LABS: Basophils % 0.2 %; Eosinophils % 0.1 %; Hematocrit 33.2 % (36-47); Lymphocytes # 1.9 10^3/uL (0.8-4.8); Lymphocytes % 23.8 %; Mean Corpuscular HGB Conc 31.3 g/dL (30-55); Mean Corpuscular Hemoglobin 26.7 pg (27-33); Mean Corpuscular Volume 85.1 fl (85-98); Mean Platelet Volume 9.4 fL (7.4-10.4); Monocytes # 0.4 10^3/uL (0.2-0.9); Monocytes % 4.5 %; Neutrophils # 5.79 10^3/uL (1.8-7.7); Nucleated Red Blood Cells % 0 %; Platelet Count 280 10^3/cmm (157-399); Red Cell Distribution Width 16.6 % (12.1-15.1); White Blood Count 8.16 10^3/uL (3.29-11.43)
[2023-08-05 04:53] LABS: Anion Gap 12.6 (5-19); Blood Urea Nitrogen 23 mg/dL (8-23); Calcium 9.8 mg/dL (8.5-10.5); Carbon Dioxide 27 mmol/L (22-29); Chloride 101 mmol/L (98-107); Glucose 123 mg/dL (65-115); Osmolality Calculated 287 mOsm/kg (285-295); Potassium 4.6 mmol/L (3.5-5.1); Sodium 136 mmol/L (136-145)
[2023-08-05] MEDS: levoFLOXacin 750 mg Tablet PO (05:06)
[2023-08-05] MEDS: aspirin 81 mg EC Tablet PO (08:13)
[2023-08-05] MEDS: buPROPion XL (24 HR) 300 mg Tablet PO (08:13)
[2023-08-05] MEDS: aspirin 325 mg Tablet PO (08:13)
--- NOTE | 2023-08-05 09:45 | P.PN_ITS ---
Subjective Subjective: Patient doing well Currently on 3 L GCS 15 Awake and alert Pleasant and cooperative Ate breakfast Vitals/I&O/Wt Last Vital Signs Temp 97.4 F L 08/05/23 08:00 Pulse 83 08/05/23 08:00 Resp 16 08/05/23 08:00 BP 96/64 08/05/23 08:00 Pulse Ox 98 08/05/23 08:00 O2 Del Method Nasal Cannula 08/05/23 07:30 O2 Flow Rate 3 08/05/23 07:30 FiO2 50 08/03/23 19:48 08/04/23 08/05/23 08/05/23 22:59 06:59 14:59 Intake Total 120 / 241 1 / 242 120 / 120 Output Total 625 / 625 250 / 875 Balance -505 / -384 -249 / -633 120 / 120 Weight last 48 hrs Weight 58.967 kg Physical Exam Narrative: Euvolemic Currently on 3 L Pleasant cooperative No active signs of respite distress Awake and alert pleasant cooperative Nonfocal neuro exam Pleasant and cooperative S1, S2 No active chest pain Urinary Catheter Management: Bennett Latex: Cath Placed During This Visit: no Reason for Continuing Indwelling Catheter: Other Data 08/05/23 04:12 08/05/23 04:12 A&P Assessment and plan (1) Non-STEMI (non-ST elevated myocardial infarction): (2) Delirium: (3) Acute exacerbation of chronic obstructive airways disease: (4) Acute respiratory failure with hypoxia and hypercapnia: (5) COPD (chronic obstructive pulmonary disease): (6) Chronic kidney disease: Plan COPD exacerbation Hypoxic hypercarbic respite failure: Resolved BiPAP overnight to be used on daily basis Currently on 3 L Patient is an active smoker, not motivated to quit smoking Low blood pressure with signs of dehydration we will do gentle fluid hydration f or 10 hours Chronic kidney disease, Creatinine at baseline Non-STEMI: Type II? Will require stress test tomorrow Continue ACS protocol Plan to discharge her tomorrow after stress test DNR/DNI Dementia no acute exacerbation Attestations Medical Necessity Statement*: Possible discharge tomorrow Diagnoses Non-STEMI (non-ST elevated myocardial infarction) I21.4 Delirium R41.0 Acute exacerbation of chronic obstructive airways disease J44.1 Acute respiratory failure with hypoxia and hypercapnia J96.01; J96.02 COPD (chronic obstructive pulmonary disease) J44.9 Chronic kidney disease N18.9
--- NOTE | 2023-08-05 09:46 | ECG_ITS ---
[facility] Test Date: 2023-08-06 Pat Name: Ev Chaves Department: Room: 279 Gender: Female [employer] Pay Manager: Elena Patel : 1950 Requested By: Rubi Young Order Number: [id number] Reading MD: Linden Christine M.D. Interpretive Statements NAME OF STUDY: LEXISCAN SESTAMIBI STRESS TEST INDICATION: [Nstemi, ] Procedure: At the baseline, the blood pressure was 120/76 mmHg with a heart rate of 69 bpm. The electrocardiogram showed normal sinus rhythm, normal axis with normal ST and T's. The Lexiscan was infused over a period of 20 seconds. A total of 0.4 mg of Lexiscan was infused. The stress phase was continued for a total of 5 minutes. Heart rate was at the end of stress phase was 91 bpm and a blood pressure of 128/64 mmHg. The EKG at the peak infusion revealed normal sinus rhythm with no significant ST-T wave changes. Sestamibi was injected 20 seconds after the Lexiscan infusion. Blood pressure at the end of recovery phase was 125/64 mmHg with a heart rate of 89 bpm. Conclusion: 1. Normal EKG response to Lexiscan infusion 2. No Lexiscan induced chest pain or cardiac arrhythmia. 3. Normal blood pressure and heart rate response. 4. Sestamibi/sestamibi perfusion scan pending; see separate report. Electronically Signed On 08-11-2023 20:39:44 CDT by Linden Christine M.D. [email or web address]
[2023-08-05] MEDS: sodium chloride 0.9% 1,000 ML 75 ML IV (11:02)
[2023-08-05] MEDS: methylPREDNISolone sod succ 40 MG in water for injection-sterile 1 ML 12 MG IVP (12:07)
[2023-08-05] MEDS: artificial tears Op Soln 15 mL Btl 1 DROP EYE-BOTH ×2 (15:54→19:55)
[2023-08-05] MEDS: sertraline 100 mg Tablet PO (16:54)
[2023-08-05] MEDS: montelukast sodium 10 mg Tablet PO (16:55)
[2023-08-05] MEDS: saline nasal spray 44mL Btl 1 SPRAY NASAL (19:55)
[2023-08-05] MEDS: sertraline 50 mg Tablet 75 MG PO (20:00)
[2023-08-05] MEDS: atorvastatin 40 mg Tablet PO (20:00)
[2023-08-05] MEDS: ropinirole 0.25 mg Tablet 0.5 MG PO (20:00)
[2023-08-05] MEDS: methylPREDNISolone sod succ 40 mg/mL INJ IVP (22:33)
[2023-08-06] VITALS (7 sets, daily range): BP systolic 103–125; BP diastolic 61–78; PULSE 67–87; RESP 16–17; TEMP 36.4–36.8; O2SAT 95–99
[2023-08-06] MEDS: sodium chloride 0.9% 1,000 ML 75 ML IV (01:05)
[2023-08-06] MEDS: enoxaparin 60 mg/0.6 mL Syringe SUBCUT (02:34)
[2023-08-06 04:34] LABS: Basophils % 0.3 %; Eosinophils % 0.1 %; Hematocrit 34.3 % (36-47); Lymphocytes # 1.7 10^3/uL (0.8-4.8); Lymphocytes % 25.4 %; Mean Corpuscular HGB Conc 31.2 g/dL (30-55); Mean Corpuscular Hemoglobin 26.6 pg (27-33); Mean Corpuscular Volume 85.3 fl (85-98); Mean Platelet Volume 9.1 fL (7.4-10.4); Monocytes # 0.3 10^3/uL (0.2-0.9); Monocytes % 4.1 %; Neutrophils # 4.72 10^3/uL (1.8-7.7); Neutrophils % 69.5 %; Nucleated Red Blood Cells % 0 %; Platelet Count 274 10^3/cmm (157-399); Red Blood Count 4.02 10^6/uL (3.85-5.65); Red Cell Distribution Width 16.4 % (12.1-15.1)
[2023-08-06 04:55] LABS: Anion Gap 14.8 (5-19); Blood Urea Nitrogen 23 mg/dL (8-23); Calcium 9.7 mg/dL (8.5-10.5); Carbon Dioxide 27 mmol/L (22-29); Chloride 104 mmol/L (98-107); Glucose 104 mg/dL (65-115); Osmolality Calculated 296 mOsm/kg (285-295); Potassium 4.8 mmol/L (3.5-5.1); Sodium 141 mmol/L (136-145)
[2023-08-06] MEDS: levoFLOXacin 750 mg Tablet PO (05:07)
[2023-08-06] MEDS: artificial tears Op Soln 15 mL Btl 1 DROP EYE-BOTH (09:46)
[2023-08-06] MEDS: buPROPion XL (24 HR) 300 mg Tablet PO (09:46)
--- NOTE | 2023-08-06 09:46 | NMCV_ITS ---
NM larry perf SPECT r/s* [id number] Ev Chaves Age: 73 Gender: F : 1950 Exam Date: 08/06/2023 09:46 Ordering Phys: Rubi Young MD Technologist: YOLI Enamorado Exam Location: [facility] Indications: CHEST PAIN STRESS TEST Please see separate stress test report in [facility] for full findings IMAGE PROTOCOL Rest/Stress 1 Lexiscan Day Radiopharmaceutical Dose (mCi) Administration Site Administered by Rest: Tc-99m 11.0 IV YOLI Enamorado Sestamibi Stress:Tc-99m 32.6 IV YOLI Bae Sestamibi Rest: 06-Aug-2023 60 Discovery 630 Stress: 06-Aug-2023 30 Discovery 630 0.4mg Lexiscan. Supine position only as patient was unable to lay prone. SPECT RESULTS Technical Quality: Excellent Raw Data Analysis: Normal Image Corrections: No attenuation or motion correction applied Summed Stress Score: 11 Summed Rest Score: 8 Summed Difference Score: 4 PERFUSION FINDINGS There is a medium sized partially reversible perfusion defect is noted in apical, apical inferior, apical septal meadows. This is consistent with medium sized area of prior infarct with some sebas-infarct ischemia in LAD and RCA territory. FUNCTIONAL RESULTS (calculated via Gated SPECT) Stress Image LV EF (%): 68 Stress EDV (mL):68 TID: 0.93 Stress ESV (mL):22 FUNCTIONAL FINDINGS: There is normal left ventricular systolic function. IMPRESSIONS 1. Medium sized area of prior infarct with minimal sebas-infarct ischemia seen in RCA and LAD territories. 2. LV systolic function is normal.Lety Christine MD (Electronically Signed) Final Date: 06 August 2023 18:02 S
[2023-08-06] MEDS: aspirin 81 mg EC Tablet PO (09:47)
[2023-08-06] MEDS: methylPREDNISolone sod succ 40 mg/mL INJ IVP (10:30)
--- NOTE | 2023-08-06 10:35 | P.DS_ITS ---
Discharge Providers Date of Admission: 08/03/23 21:46 Date of Discharge: August 06, 2023 Attending Provider at Admission: Pablo Powers Attending Provider at Discharge: Rubi Young MD Primary Care Provider: Fred Treviño Diagnoses at Discharge Discharge Diagnosis (1) Non-STEMI (non-ST elevated myocardial infarction): Status: Acute (2) Delirium: Status: Acute (3) Acute exacerbation of chronic obstructive airways disease: Status: Acute (4) Acute respiratory failure with hypoxia and hypercapnia: Status: Acute (5) COPD (chronic obstructive pulmonary disease): Status: Acute (6) Chronic kidney disease: Status: Acute Reason for Visit Reason for Visit: RESP. DISTRESS Hospital Course Hospital Course 73-year female who is an active smoker, noncompliant with her oxygen, presented to the hospital for acute on chronic hypoxic hypercarbic respite failure related to her active smoking, she was put on steroids, empirical antibiotics which improved her respiratory distress, metabolic encephalopathy improved as well with use of BiPAP which was related to hypercapnia, she is DNI/DNI, hemodynamic remained stable, echo showed EF 55 to 60% grade 1 diastolic function patient clinically looks dehydrated, pleasant and cooperative, she never complained of any chest pain, she was put on ACS protocol for rise of troponin echo did not show wall motion abnormality likely type II [place], COPD exacerbation has improved, patient has underlying dementia no active exacerbation noted at the time of discharge. Patient is being discharged back to the facility. She is requiring 3 L saturating well At this point most important lifestyle modification will be to quit smoking and use oxygen consistently. Physical Exam Narrative: Awake and alert Dehydrated Abdomen soft No active chest pain Pleasant Currently on 3 L Urinary Catheter Management: Bennett Latex: Cath Placed During This Visit: no Reason for Continuing Indwelling Catheter: Other Discharge Data Studies Completed and Pending Completed Studies During Hospitalization Category Date Time Status XR chest 1V portable [id number] Stat Exams 08/03/23 19:34 Completed CV. echo complete* [id number] Routine Ultrasound 08/04/23 06:00 Completed Pending at discharge Category Date Time Status Sestamibi Stress Test Request Routine Exams 08/05/23 09:46 Ordered COVID [SARS Covid-2 Antigen] Routine Lab 08/06/23 10:20 Uncollected Sputum Culture and Gram Stain Routine Lab 08/03/23 23:06 Uncollected NM larry perf SPECT r/s* [id number] Routine Nuc Med 08/06/23 09:46 Ordered Radiology Impressions Chest X-Ray 08/03/23 19:34 IMPRESSION: Hyperinflated but clear lungs. No other acute cardiopulmonary abnormality. No change from prior. Laboratory Results WBC 6.80 10^3/uL (3.29-11.43) 08/06/23 04:18 RBC 4.02 10^6/uL (3.85-5.65) 08/06/23 04:18 Hgb 10.70 g/dL (11.27-16.99) L 08/06/23 04:18 Hct 34.3 % (36-47) L 08/06/23 04:18 MCV 85.3 fl (85-98) 08/06/23 04:18 MCH 26.6 pg (27-33) L 08/06/23 04:18 MCHC 31.2 g/dL (30-55) 08/06/23 04:18 RDW 16.4 % (12.1-15.1) H 08/06/23 04:18 Plt Count 274 10^3/cmm (157-399) 08/06/23 04:18 MPV 9.1 fL (7.4-10.4) 08/06/23 04:18 Neut % (Auto) 69.5 % 08/06/23 04:18 Lymph % (Auto) 25.4 % 08/06/23 04:18 [place] % (Auto) 4.1 % 08/06/23 04:18 Eos % (Auto) 0.1 % 08/06/23 04:18 Baso % (Auto) 0.3 % 08/06/23 04:18 Neut # (Auto) 4.72 10^3/uL (1.8-7.7) 08/06/23 04:18 Lymph # (Auto) 1.7 10^3/uL (0.8-4.8) 08/06/23 04:18 [place] # (Auto) 0.3 10^3/uL (0.2-0.9) 08/06/23 04:18 Eos # (Auto) 0.0 10^3/uL (0.0-0.8) 08/06/23 04:18 Baso # (Auto) 0.0 10^3/uL (0.0-0.1) 08/06/23 04:18 Nucleated RBC % (auto) 0 % 08/06/23 04:18 Nucleated RBCs # 0.0 /100WBC 08/06/23 04:18 Specimen Type Arterial 08/03/23 19:37 Sample Site Brachial, left 08/03/23 19:37 ABG pH 7.31 (7.35-7.45) L 08/03/23 19:37 ABG pCO2 50.1 mmHg (35-45) H 08/03/23 19:37 ABG pO2 103.0 mmHg (80.0-100.0) H 08/03/23 19:37 ABG HCO3 25.3 mmol/L (22-26) 08/03/23 19:37 ABG Base Excess -1.3 mmol/L (-2.0-2.0) 08/03/23 19:37 Emmett Test N/a 08/03/23 19:37 Hematocrit 32.7 % (37-47) L 08/03/23 19:37 Hgb O2 Saturation 96.6 % (95-100) 08/03/23 19:37 Carboxyhemoglobin 1.9 %THgb (0.4-20.1) 08/03/23 19:37 Methemoglobin 0.4 % (0.4-1.5) 08/03/23 19:37 Total Hemoglobin 10.7 g/dL (12-16) L 08/03/23 19:37 O2 Delivery Device Bipap 08/03/23 19:37 FiO2 50.0 % 08/03/23 19:37 Computer Sciences Professor ID [email or web address] 08/03/23 19:37 Sodium 141 mmol/L (136-145) 08/06/23 04:18 Potassium 4.8 mmol/L (3.5-5.1) 08/06/23 04:18 Chloride 104 mmol/L (98-107) 08/06/23 04:18 Carbon Dioxide 27 mmol/L (22-29) 08/06/23 04:18 Anion Gap 14.8 (5-19) 08/06/23 04:18 BUN 23 mg/dL (8-23) 08/06/23 04:18 Creatinine 1.4 mg/dL (0.5-0.9) H 08/06/23 04:18 GFR Calculation Not Reportable 08/06/23 04:18 Glucose 104 mg/dL (65-115) 08/06/23 04:18 Calculated Osmolality 296 mOsm/kg (285-295) H 08/06/23 04:18 Lactic Acid 1.3 mmol/L (0.5-2.2) 08/03/23 19:45 Calcium 9.7 mg/dL (8.5-10.5) 08/06/23 04:18 Total Bilirubin 0.2 mg/dL (0.15-1.2) 08/03/23 20:41 AST 17 U/L (0-32) 08/03/23 20:41 ALT 10 U/L (0-33) 08/03/23 20:41 Alkaline Phosphatase 128 U/L (35-105) H 08/03/23 20:41 Troponin T Baseline 68 ng/L (0-10) H 08/03/23 19:45 Troponin T 120 Minute 198.5 ng/L (0-10) H 08/03/23 21:48 Delta Troponin T 130.5 ABS# (0-10) H* 08/03/23 21:48 Troponin T Hi Sens 6Hr 254.6 ng/L (0-10) H 08/04/23 01:29 Troponin T Hi Sens 6Hr Delta 186.6 ng/L (0-12) H* 08/04/23 01:29 NT-Pro-B Natriuret Pep 178 pg/mL (0-450) 08/03/23 19:45 Total Protein 7.0 g/dL (6.6-8.7) 08/03/23 20:41 Albumin 4.0 g/dL (3.5-5.2) 08/03/23 20:41 Globulin 3.0 g/dL (1.3-4.6) 08/03/23 20:41 Nasal Influ A H1 2009 PCR Not detected (NOT DETECT) 08/03/23 22:30 Adenovirus (PCR) Not detected (NOT DETECT) 08/03/23 22:30 C. pneumoniae DNA (PCR) Not detected (NOT DETECT) 08/03/23 22:30 Coronavirus 229E (PCR) Not detected (NOT DETECT) 08/03/23 22: Human Metapneumovir PCR Not detected (NOT DETECT) 08/03/23 22:30 Influenza A (H1) PCR Not detected (NOT DETECT) 08/03/23 22:30 Influenza A (H3) PCR Not detected (NOT DETECT) 08/03/23 22:30 Influenza Type A (PCR) Not detected (NOT DETECT) 08/03/23 22:30 Influenza Type B (PCR) Not detected (NOT DETECT) 08/03/23 22:30 M. pneumoniae (PCR) Not detected (NOT DETECT) 08/03/23 22:30 Parainfluenza 1 (PCR) Not detected (NOT DETECT) 08/03/23 22:30 Parainfluenza 2 (PCR) Not detected (NOT DETECT) 08/03/23 22:30 Parainfluenza 3 (PCR) Not detected (NOT DETECT) 08/03/23 22:30 Parainfluenza 4 (PCR) Not detected (NOT DETECT) 08/03/23 22:30 RSV Type A (PCR) Not detected (NOT DETECT) 08/03/23 22:30 RSV Type B (PCR) Not detected (NOT DETECT) 08/03/23 22:30 Entero/Rhino (PCR) Not detected (NOT DETECT) 08/03/23 22:30 SARS-CoV-2 (PCR) Not detected (NOT DETECT) 08/03/23 22:30 Vitals Last Vital Signs Temp 98.3 F 08/06/23 08:00 Pulse 67 08/06/23 08:00 Resp 16 08/06/23 08:00 BP 103/61 08/06/23 08:00 Pulse Ox 98 08/06/23 08:00 O2 Del Method Nasal Cannula 08/06/23 03:21 O2 Flow Rate 3 08/06/23 08:00 FiO2 50 08/03/23 19:48 Discharge Plan Discharge Patient Disposition: Home Condition: Stable Prescriptions: New amoxicillin-pot clavulanate 875-125 mg tablet 1 tab PO BID Qty: 10 0RF Continued hydrocodone-acetaminophen 10-325 mg tablet 1 tab PO BID gabapentin 300 mg capsule 300 mg PO BID Multivitamin-Minerals Tablet 1 tab PO QAM magnesium citrate Solution See Rx Instructions .ROUTE .COMPLEX Rx Instructions: 10 oz po after dulcolax if no bm if needed for constipation Mylanta 200-200-20 mg/5 mL Suspension 30 ml PO .EVERY 2 HOURS PRN (Reason: Indigestion) Zofran ODT 4 mg Tablet,Disintegrating 4 mg PO Q6H PRN (Reason: Nausea And Vomiting) methylprednisolone 4 mg tablets,dose pack See Rx Instructions .ROUTE .COMPLEX Rx Instructions: TAKE DIRECTED ON PACKAGE (rx filled 07/24/23 6d/s) acetaminophen [Tylenol] 325 mg Tablet 650 mg PO Q4H PRN (Reason: Pain) hydrocodone-acetaminophen 5-325 mg tablet 1 tab PO Q4H PRN (Reason: Pain) aspirin [Aspir-81] 81 mg Tablet,Delayed Release (Dr/Ec) 81 mg PO QAM simvastatin 40 mg tablet 40 mg PO BEDTIME magnesium hydroxide [Milk of Magnesia] 400 mg/5 mL Suspension See Rx Instructions .ROUTE .COMPLEX PRN (Reason: Constipation) Rx Instructions: 30 mL po every 3rd day as needed for no bm bisacodyl [Dulcolax (bisacodyl)] 10 mg Suppository See Rx Instructions .ROUTE .COMPLEX Rx Instructions: 1 suppository rectally after mom if no bm as needed only if pt refuses tabs ropinirole 0.5 mg tablet 0.5 mg PO BEDTIME montelukast 10 mg tablet 10 mg PO BEDTIME bisacodyl [Dulcolax (bisacodyl)] 5 mg Tablet,Delayed Release (Dr/Ec) 20 mg PO DAILY PRN (Reason: after mom for no bm) sertraline 50 mg tablet 75 mg PO BEDTIME Rx Instructions: take with 100mg tab to =175mg loratadine 10 mg Tablet 10 mg PO QAM bupropion HCl 300 mg tablet extended release 24 hr 300 mg PO QAM sertraline 100 mg tablet 100 mg PO BEDTIME Rx Instructions: take with 75mg tab to =175mg Anoro Ellipta 62.5-25 mcg/actuation blister with device 1 inh INHALATION QAM Qty: 60 3RF albuterol sulfate 90 mcg/actuation HFA aerosol inhaler 2 puff INHALATION Q6H PRN (Reason: Shortness Of Breath Or Wheezing) Qty: 6.7 2RF Discharge Orders: Discharge Order (Routine); Ordered 08/06/23 Ordered By: Rubi Young Referrals: Fred Treviño [Primary Care Provider] - Discharge Diet: Cardiac Discharge Activity: Increase activity as tolerated Patient Instructions: Opioid Safety Discharge Attestations Time Spent in Discharge Care*: greater than 30 min Quality Metrics Clinical Quality Measures [ No reported AMI, CVA or VTE this stay] Coding Level of Care Code Acute Code for Chg Fwd Diagnoses Non-STEMI (non-ST elevated myocardial infarction) I21.4 Delirium R41.0 Acute exacerbation of chronic obstructive airways disease J44.1 Acute respiratory failure with hypoxia and hypercapnia J96.01; J96.02 COPD (chronic obstructive pulmonary disease) J44.9 Chronic kidney disease N18.9
[2023-08-06 11:27] LABS: SARS Covid-2 Antigen negative (Negative)
--- NOTE | 2023-08-06 12:37 | PC.NURSE ---
This nurse gave report to Arabella at [facility] via phone at [phone]. Pt to d/c following stress test.
--- NOTE | 2023-08-06 12:37 | PC.SOCIAL ---
IMM Update pg 2 of IMM updated and reviewed w/ patient. Copy provided and Copy in chart dated, and initialed.
[2023-08-06] MEDS: regadenoson 0.4 Mg/5 ml Syringe IVP (13:06)
[2023-08-06] MEDS: montelukast sodium 10 mg Tablet PO (17:00)
[2023-08-06] MEDS: sertraline 100 mg Tablet PO (17:00)
== END 2023-08-06 19:00 | disposition skilled nursing facility (03) | DRG 280 ==
LOC: ER 21:56 → MEDSURG 22:23
PROVIDERS: Admitting Provider Internal Medicine; Emergency Provider Emergency Medicine; PCP Student in an Organized Health Care Education/Training Program; Visit Provider Internal Medicine
DX: I21.4 Non-ST elevation (NSTEMI) myocardial infarction (principal); J96.01 Acute respiratory failure with hypoxia; J96.02 Acute respiratory failure with hypercapnia; J44.1 Chronic obstructive pulmonary disease with (acute) exacerbation; E87.29 Other acidosis; N18.9 Chronic kidney disease, unspecified; F03.90 Unspecified dementia, unspecified severity, without behavioral disturbance, psychotic disturbance, mood disturbance, and anxiety; F17.200 Nicotine dependence, unspecified, uncomplicated; Z66 Do not resuscitate
CPT/HCPCS: 36415; 36600; 51702; 71045; 78452; 80048; 80053; 82805; 83605; 83880; 84484; 85025; 87426; 87486; 87581; 87633; 93005; 93017; 93306; 94660; 96372; 96374; 96375; 99285; A9500; J1644; J1650; J1940; J1956; J2785; J2920; J7030; Q3014

== ENCOUNTER 2023-08-27 22:12 | Emergency (ER) | payer MEDICARE, MEDICAID, SELFPAY ==
[2023-08-27 22:13] VITALS: BP 102/73; PULSE 114; RESP 25; TEMP 37.9; O2SAT 92
--- NOTE | 2023-08-27 22:32 | XRR_ITS ---
PROCEDURE INFORMATION: Exam: XR Chest Exam date and time: 08/27/2023 10:35 PM Age: 73 years old Clinical indication: Fever and wheezing and other: AMS; Additional info: Fever AMS TECHNIQUE: Imaging protocol: Radiologic exam of the chest. Views: 1 view. COMPARISON: CR (CHEST, ) 08/03/2023 7:44 PM FINDINGS: Lungs: Bibasilar atelectasis versus minimal infiltrate. Pleural spaces: Unremarkable. No pleural effusion. No pneumothorax. Heart/Mediastinum: Unremarkable. No cardiomegaly. Bones/joints: Right humeral neck chronic appearing fracture. XR/XR chest 1V portable [id number] IMPRESSION: 1. Bibasilar atelectasis versus minimal infiltrate. 2. Right humeral neck chronic appearing fracture.
--- NOTE | 2023-08-27 22:33 | ED_ITS ---
HPI - Altered Mental Status General: Chief Complaint: Altered Mental Status Stated Complaint: AMS Time Seen by Provider: 08/27/23 22:31 History of Present Illness: 73-year-old female comes in today with complaints of cough and AMS. Patient is a resident at a local residential. Patient had a cough and was not acting herself. Patient has a history of COPD, dementia, and chronic kidney disease. Patient answer questions appropriately. Patient appears unwell but not toxic. Respirations are even. Occasional cough is noted. Review of Systems General: Reports: 10 or more systems reviewed and unremarkable except in HPI and below Const: Reports: fever(s) Card: Denies: chest pain Resp: Reports: non-productive cough GI: Denies: nausea, vomiting, diarrhea or constipation : Denies: difficulty voiding Musc: Reports: back pain (Chronic); Denies: neck pain Neuro: Denies: headache(s) PFS ED PFSH: Medical History (Updated 08/28/23 @ 00:51 by ELISE Salazar) COPD (chronic obstructive pulmonary disease) Dementia Nicotine dependence Social History Smoking and tobacco/nicotine status: current every day tobacco/nicotine user Physical Exam Const: COMMON NORMALS: alert HENMT: COMMON NORMALS: normocephalic HEAD & SCALP: normocephalic MOUTH: Normal oral and palatal mucosa present Neck/C-Spine: COMMON NORMALS: full ROM Resp: COMMON NORMALS: normal respiratory effort AUSCULTATION: diminished lung sounds Cardio: COMMON NORMALS: regular rate and regular rhythm RATE: regular rate RHYTHM: regular rhythm GI: COMMON NORMALS: Soft to palpation and non-tender PALPATION: Yes Soft to palpation Back/Pelvis: LUMBAR SPINE/LOWER BACK: Yes pain with ROM and Yes paraspinal muscle tenderness Extremity: COMMON NORMALS: no pedal edema Neuro: SENSORIUM/ORIENTATION: Yes alert Skin: COMMON NORMALS: turgor normal GENERAL SKIN EXAM: turgor normal Course Vital Signs: Vital signs: Vital Signs Temperature 100.3 F H 08/27/23 22:46 Pulse Rate 77 08/28/23 05:09 Respiratory Rate 19 H 08/28/23 05:09 Blood Pressure 82/53 08/28/23 05:09 Pulse Oximetry 96 08/28/23 05:09 Oxygen Delivery Me thod Nasal Cannula 08/28/23 05:09 Oxygen Flow Rate 3 08/28/23 05:09 MDM - Altered Mental Status Medical Decision Making 73-year-old female was brought in from residential for concerns of fever, cough, altered mental status. Patient is alert and answers questions appropriately. Patient does have a history of COPD and dementia. On exam lungs are decreased throughout. Patient is on nasal cannula oxygen at 3 L with O2 saturation 92%. No edema is noted in the extremities. Abdomen soft nontender. Differential diagnosis includes but not limited to urinary tract infection, sepsis, pneumonia, respiratory failure, ACS. Chest x-ray noted bibasilar atelectasis versus minimal infiltrate. Procalcitonin was elevated to 5. White blood cell count was 13,000. Creatinine was 1.5. At this time believe patient probably has pneumonia due to the fever, procalcitonin, abnormal chest x-ray, and elevated white count. Patient will be started on Rocephin 1 g and azithromycin 500 mg in the emergency room. Patient be continued on cefdinir 300 mg twice daily for 7 days and azithromycin 250 daily for 4 more days. Patient will continue with her routine nebulizer treatment and oxygen at the residential. We will await discharge until second troponin comes back. I reviewed this with Dr. Wing who will assume care of the patient at my end of shift. Lab Data 08/27/23 23:00 08/27/23 23:00 Radiology Impressions Chest X-Ray 08/27/23 22:32 IMPRESSION: 1. Bibasilar atelectasis versus minimal infiltrate. 2. Right humeral neck chronic appearing fracture. Laboratory Results WBC 13.86 10^3/uL (3.29-11.43) H 08/27/23 23:00 RBC 3.87 10^6/uL (3.85-5.65) 08/27/23 23:00 Hgb 10.50 g/dL (11.27-16.99) L 08/27/23 23:00 Hct 33.5 % (36-47) L 08/27/23 23:00 MCV 86.6 fl (85-98) 08/27/23 23:00 MCH 27.1 pg (27-33) 08/27/23 23:00 MCHC 31.3 g/dL (30-55) 08/27/23 23:00 RDW 18.1 % (12.1-15.1) H 08/27/23 23:00 Plt Count 278 10^3/cmm (157-399) 08/27/23 23:00 MPV 9.2 fL (7.4-10.4) 08/27/23 23:00 Neut % (Auto) 81.7 % 08/27/23 23:00 Lymph % (Auto) 8.9 % 08/27/23 23:00 [place] % (Auto) 7.8 % 08/27/23 23:00 Eos % (Auto) 0.8 % 08/27/23 23:00 Baso % (Auto) 0.4 % 08/27/23 23:00 Neut # (Auto) 11.32 10^3/uL (1.8-7.7) H 08/27/23 23:00 Lymph # (Auto) 1.2 10^3/uL (0.8-4.8) 08/27/23 23:00 [place] # (Auto) 1.1 10^3/uL (0.2-0.9) H 08/27/23 23:00 Eos # (Auto) 0.1 10^3/uL (0.0-0.8) 08/27/23 23:00 Baso # (Auto) 0.1 10^3/uL (0.0-0.1) 08/27/23 23:00 Nucleated RBC % (auto) 0 % 08/27/23 23:00 Nucleated RBCs # 0.0 /100WBC 08/27/23 23:00 Specimen Type Arterial 08/27/23:40 Sample Site Brachial, right 08/27/23 23:40 ABG pH 7.41 (7.35-7.45) 08/27/23 23:40 ABG pCO2 39.5 mmHg (35-45) 08/27/23 23:40 ABG pO2 54.5 mmHg (80.0-100.0) L 08/27/23 23:40 ABG HCO3 25.0 mmol/L (22-26) 08/27/23 23:40 ABG Base Excess 0.3 mmol/L (-2.0-2.0) 08/27/23 23:40 Emmett Test N/a 08/27/23 23:40 Hematocrit 28.0 % (37-47) L 08/27/23 23:40 O2 Delivery Device Nc 08/27/23 23:40 O2 Liters/Min 2.0 % 08/27/23 23:40 Internal Security Manager ID Steve 08/27/23 23:40 Sodium 139 mmol/L (136-145) 08/27/23 23:00 Potassium 4.3 mmol/L (3.5-5.1) 08/27/23 23:00 Chloride 103 mmol/L (98-107) 08/27/23 23:00 Carbon Dioxide 24 mmol/L (22-29) 08/27/23 23:00 Anion Gap 16.3 (5-19) 08/27/23 23:00 BUN 15 mg/dL (8-23) 08/27/23 23:00 Creatinine 1.5 mg/dL (0.5-0.9) H 08/27/23 23:00 GFR Calculation Not Reportable 08/27/23 23:00 Glucose 149 mg/dL (65-115) H 08/27/23 23:00 Calculated Osmolality 292 mOsm/kg (285-295) 08/27/23 23:00 Lactic Acid 1.3 mmol/L (0.5-2.2) 08/27/23 23:00 Calcium 9.1 mg/dL (8.5-10.5) 08/27/23 23:00 Magnesium 1.8 mg/dL (1.7-2.3) 08/27/23 23:00 Total Bilirubin 0.2 mg/dL (0.15-1.2) 08/27/23 23:00 AST 21 U/L (0-32) 08/27/23 23:00 ALT 10 U/L (0-33) 08/27/23 23:00 Alkaline Phosphatase 125 U/L (35-105) H 08/27/23 23:00 Troponin T Baseline 20 ng/L (0-10) H 08/27/23 23:00 Troponin T 120 Minute 20.60 ng/L (0-10) H 08/28/23 00:22 Delta Troponin T 0.60 ABS# (0-10) 08/28/23 00:22 Total Protein 6.5 g/dL (6.6-8.7) L 08/27/23 23:00 Albumin 3.9 g/dL (3.5-5.2) 08/27/23 23:00 Globulin 2.6 g/dL (1.3-4.6) 08/27/23 23:00 Procalcitonin 5.91 ng/mL (0-0.5) H 08/27/23 23:00 TSH 1.72 uIU/mL (0.27-4.20) 08/27/23 23:00 Urine Color Yellow (Yellow) 08/27/23 23:00 Urine Appearance Clear (CLEAR) 08/27/23 23:00 Urine pH 5 (5-7) 08/27/23 23:00 Ur Specific [place] 1.010 (1.005-1.030) 08/27/23 23:00 Urine Protein Neg (Negative) 08/27/23 23:00 Urine Glucose (UA) Norm (Normal) 08/27/23 23:00 Urine Ketones Negative (Negative) 08/27/23 23:00 Urine Blood Neg (Negative) 08/27/23 23:00 Urine Nitrate Negative (Negative) 08/27/23 23:00 Urine Bilirubin Neg (Negative) 08/27/23 23:00 Urine Urobilinogen Norm mg/dL (Negative) 08/27/23 23:00 Ur Leukocyte Esterase Negative (Negative) 08/27/23 23:00 Nasal Influ A H1 2009 PCR Not detected (NOT DETECT) 08/27/23 23:00 Urine Opiates Screen Positive ng/mL (Negative) H 08/27/23 23:00 Ur Barbiturates Screen Negative ng/mL (Negative) 08/27/23 23:00 Ur Phencyclidine Scrn Negative ng/mL (Negative) 08/27/23 23:00 Ur Amphetamines Screen Negative ng/mL (Negative) 08/27/23 23:00 U Benzodiazepines Scrn Negative ng/mL (Negative) 08/27/23 23:00 Urine Cocaine Screen Negative ng/mL (Negative) 08/27/23 23:00 U Marijuana (THC) Screen Negative ng/mL (Negative) 08/27/23 23:00 Adenovirus (PCR) Not detected (NOT DETECT) 08/27/23 23:00 C. pneumoniae DNA (PCR) Not detected (NOT DETECT) 08/27/23 23:00 Coronavirus 229E (PCR) Not detected (NOT DETECT) 08/27/23 23:00 Human Metapneumovir PCR Not detected (NOT DETECT) 08/27/23 23:00 Influenza A (H1) PCR Not detected (NOT DETECT) 08/27/23 23:00 Influenza A (H3) PCR Not detected (NOT DETECT) 08/27/23 23:00 Influenza Type A (PCR) Not detected (NOT DETECT) 08/27/23 23:00 Influenza Type B (PCR) Not detected (NOT DETECT) 08/27/23 23:00 M. pneumoniae (PCR) Not detected (NOT DETECT) 08/27/23 23:00 Parainfluenza 1 (PCR) Not detected (NOT DETECT) 08/27/23 23:00 Parainfluenza 2 (PCR) Not detected (NOT DETECT) 08/27/23 23:00 Parainfluenza 3 (PCR) Not detected (NOT DETECT) 08/27/23 23:00 Parainfluenza 4 (PCR) Not detected (NOT DETECT) 08/27/23 23:00 RSV Type A (PCR) Not detected (NOT DETECT) 08/27/23 23:00 RSV Type B (PCR) Not detected (NOT DETECT) 08/27/23 23:00 Entero/Rhino (PCR) Not detected (NOT DETECT) 08/27/23 23:00 SARS-CoV-2 (PCR) Not detected (NOT DETECT) 08/27/23 23:00 All radiology interpretation(s) finalized by discharge Discharge Plan Discharge Patient Disposition: Home Clinical Impression: Pneumonia Qualifiers: Pneumonia type: due to unspecified organism Laterality: left Lung location: lower lobe of lung Qualified Code(s): J18.9 - Pneumonia, unspecified organism Condition: Stable Prescriptions: New cefdinir 300 mg capsule 300 mg PO BID 7 Days Qty: 14 0RF azithromycin 250 mg tablet 250 mg PO DAILY 4 Days Qty: 4 0RF Rx Instructions: start on day 2 of therapy No Action hydrocodone-acetaminophen 10-325 mg tablet 1 tab PO BID gabapentin 300 mg capsule 300 mg PO BID multivitamin with iron-mineral Tablet 1 tab PO QAM magnesium citrate Solution See Rx Instructions .ROUTE .COMPLEX Rx Instructions: 10 oz po after dulcolax if no bm if needed for constipation alum-mag hydroxide-simeth 200-200-20 mg/5 mL Suspension 30 ml PO .EVERY 2 HOURS PRN (Reason: Indigestion) ondansetron 4 mg Tablet,Disintegrating 4 mg PO Q6H PRN (Reason: Nausea And Vomiting) methylprednisolone 4 mg tablets,dose pack See Rx Instructions .ROUTE .COMPLEX Rx Instructions: TAKE DIRECTED ON PACKAGE (rx filled 07/24/23 6d/s) amoxicillin-pot clavulanate 875-125 mg tablet 1 tab PO BID Qty: 10 0RF albuterol sulfate 90 mcg/actuation HFA aerosol inhaler 2 puff INHALATION Q6H PRN (Reason: Shortness Of Breath Or Wheezing) Qty: 6.7 2RF Anoro Ellipta 62.5-25 mcg/actuation blister with device 1 inh INHALATION QAM Qty: 60 3RF acetaminophen [Tylenol] 325 mg Tablet 650 mg PO Q4H PRN (Reason: Pain) hydrocodone-acetaminophen 5-325 mg tablet 1 tab PO Q4H PRN (Reason: Pain) aspirin 81 mg Tablet,Delayed Release (Dr/Ec) 81 mg PO QAM simvastatin 40 mg tablet 40 mg PO BEDTIME magnesium hydroxide [Milk of Magnesia] 400 mg/5 mL Suspension See Rx Instructions .ROUTE .COMPLEX PRN (Reason: Constipation) Rx Instructions: 30 mL po every 3rd day as needed for no bm bisacodyl [Dulcolax (bisacodyl)] 10 mg Suppository See Rx Instructions .ROUTE .COMPLEX Rx Instructions: 1 suppository rectally after mom if no bm as needed only if pt refuses tabs ropinirole 0.5 mg tablet 0.5 mg PO BEDTIME montelukast 10 mg tablet 10 mg PO BEDTIME bisacodyl [Dulcolax (bisacodyl)] 5 mg Tablet,Delayed Release (Dr/Ec) 20 mg PO DAILY PRN (Reason: after mom for no bm) sertraline 50 mg tablet 75 mg PO BEDTIME Rx Instructions: take with 100mg tab to =175mg loratadine 10 mg Tablet 10 mg PO QAM bupropion HCl 300 mg tablet extended release 24 hr 300 mg PO QAM sertraline 100 mg tablet 100 mg PO BEDTIME Rx Instructions: take with 75mg tab to =175mg Discharge Orders: Discharge ED (Routine); Ordered 08/28/23 Ordered By: Wiliam Cnuha Referrals: Fred Treviño [Primary Care Provider] - Patient Instructions: Pneumonia (ED) Sign Out Sign Out Data: Patient Sign Out occurred on 08/28/23 at 06:01. Patient's care was discussed, and care was transferred from to Ji Banegas DO. Coding Level of Care Code ED Company Controller for Olga Solo
--- NOTE | 2023-08-27 22:45 | PC.NURSE ---
pt currently resting in room 11 with eyes closed, even, unlabored respirations on 3L NC (baseline for pt) sat 92%
[2023-08-27 22:46] VITALS: BP 107/64; PULSE 100; RESP 23; TEMP 37.9; O2SAT 92
[2023-08-27] MEDS: acetaminophen 1,000 MG/100 ML PIGGYBACK 400 MG IV (23:06)
[2023-08-27] MEDS: sodium chloride 0.9% 500 ML 999 ML IV (23:07)
[2023-08-27 23:17] VITALS: BP 94/64; PULSE 94; RESP 29; O2SAT 97
[2023-08-27 23:19] LABS: Add Urine Microscopic? NO; Charge for UA Resulting for Rev
[2023-08-27 23:20] LABS: Basophils # 0.1 10^3/uL (0.0-0.1); Basophils % 0.4 %; Eosinophils # 0.1 10^3/uL (0.0-0.8); Eosinophils % 0.8 %; Hematocrit 33.5 % (36-47); Lymphocytes # 1.2 10^3/uL (0.8-4.8); Lymphocytes % 8.9 %; Mean Corpuscular HGB Conc 31.3 g/dL (30-55); Mean Corpuscular Hemoglobin 27.1 pg (27-33); Mean Corpuscular Volume 86.6 fl (85-98); Mean Platelet Volume 9.2 fL (7.4-10.4); Monocytes # 1.1 10^3/uL (0.2-0.9); Monocytes % 7.8 %; Neutrophils # 11.32 10^3/uL (1.8-7.7); Neutrophils % 81.7 %; Nucleated Red Blood Cells % 0 %; Platelet Count 278 10^3/cmm (157-399); Red Blood Count 3.87 10^6/uL (3.85-5.65); Red Cell Distribution Width 18.1 % (12.1-15.1); White Blood Count 13.86 10^3/uL (3.29-11.43)
--- NOTE | 2023-08-27 23:22 | ECG_ITS ---
[facility] Test Date: 2023-08-27 Pat Name: Ev Chaves Department: Room: Gender: Female Voice Data Communications Engineer: : 1950 Requested By: Flo Wing Order Number: [id number] Theo MD: Clemente Castillo M.D. Measurements Intervals [place] Rate: 91 P: 72 ME: 180 QRS: -1 QRSD: 88 T: 47 QT: 376 QTc: 465 Interpretive Statements SINUS RHYTHM WITH SINUS ARRHYTHMIA Normal ECG Electronically Signed On 08-28-2023 14:27:08 GUEST RELATIONS AGENT by Clemente Castillo M.D. [id number]
[2023-08-27 23:24] LABS: Bilirubin Urine Neg (Negative); Blood Urine Neg (Negative); Glucose Urine UA Norm (Normal); Ketones Urine Negative (Negative); Leukocyte Esterase Urine Negative (Negative); Nitrate Urine Negative (Negative); Protein Urine Neg (Negative); Urine Appearance Clear (CLEAR); Urine Color Yellow (Yellow); Urobilinogen Urine Norm (Negative); pH Urine 5 (5-7)
[2023-08-27 23:30] LABS: Amphetamines Screen Urine Negative (Negative); Barbiturates Screen Urine Negative (Negative); Benzodiazepines Screen Urine Negative (Negative); Cocaine Screen Urine Negative (Negative); Opiate Screen Urine Positive (Negative); PCP Screen Urine Negative (Negative); THC Screen Urine Negative (Negative)
[2023-08-27] MEDS: ipratropium-albuterol 3 mL Neb INHALATION (23:34)
[2023-08-27 23:36] LABS: Lactic Sepsis W/Reflex 1.3 mmol/L (0.5-2.2)
[2023-08-27 23:37] VITALS: PULSE 92; RESP 25; O2SAT 93
[2023-08-27 23:39] LABS: Troponin(5th) Baseline 20 ng/L (0-10)
[2023-08-27 23:48] LABS: Procalcitonin 5.91 ng/mL (0-0.5); Thyroid Stimulating Hormone 1.72 uIU/mL (0.27-4.20)
[2023-08-27 23:55] LABS: ABG PH Result 7.41 (7.35-7.45); Base Excess ABG 0.3 mmol/L (-2.0-2.0); Blood Gas Operator Identificat JB; Blood Gas Sample Site Brachial, right; Blood Gas Sample Type Arterial; Oxygen Device NC
[2023-08-27 23:57] LABS: ABG PCO2 39.5 mmHg (35-45); PO2 ABG 54.5 mmHg (80.0-100.0)
[2023-08-27 23:59] LABS: Alanine Aminotransferase 10 U/L (0-33); Albumin Level 3.9 g/dL (3.5-5.2); Alkaline Phosphatase 125 U/L (35-105); Anion Gap 16.3 (5-19); Aspartate Amino Transferase 21 U/L (0-32); Blood Urea Nitrogen 15 mg/dL (8-23); Calcium 9.1 mg/dL (8.5-10.5); Carbon Dioxide 24 mmol/L (22-29); Chloride 103 mmol/L (98-107); Globulin 2.6 g/dL (1.3-4.6); Glucose 149 mg/dL (65-115); Magnesium 1.8 mg/dL (1.7-2.3); Osmolality Calculated 292 mOsm/kg (285-295); Potassium 4.3 mmol/L (3.5-5.1); Sodium 139 mmol/L (136-145); Total Bilirubin 0.2 mg/dL (0.15-1.2); Total Protein 6.5 g/dL (6.6-8.7)
[2023-08-28] VITALS (9 sets, daily range): BP systolic 68–121; BP diastolic 48–66; PULSE 77–93; RESP 18–27; O2SAT 90–97
--- NOTE | 2023-08-28 00:21 | ECG_ITS ---
[facility] Test Date: 2023-08-28 Pat Name: Ev Chaves Department: Room: Gender: Female Front End Specialist: : 1950 Requested By: Flo Wing Order Number: [id number] Reading MD: Clemente Castillo M.D. Measurements Intervals [place] Rate: 89 P: 0 NH: 0 QRS: 0 QRSD: 94 T: 53 QT: 380 QTc: 463 Interpretive Statements Normal sinus rhythm Nonspecific ST changes Compared to ECG 08/27/2023 23:22:54 No significant change Electronically Signed On 08-28-2023 14:35:40 [employer] by Clemente Castillo M.D. [email or web address] hospitalRethinkoh[facility] state university [facility] centerCold Crate/store/OM/[id number]/[id number]
[2023-08-28] MEDS: cefTRIAXone 1,000 MG in sodium chloride 0.9% (plus) 50 ML 100 MG IV (00:45)
[2023-08-28] MEDS: sodium chloride 0.9% 1,000 ML 999 ML IV (00:45)
[2023-08-28 01:02] LABS: Adenovirus Not Detected (NOT DETECT); Chlamydia Pneumoniae Not Detected (NOT DETECT); Coronavirus 229E,HKU1,NL63,OC4 Not Detected (NOT DETECT); Human Metapneumovirus Not Detected (NOT DETECT); Human Rhinovirus/Enterovirus Not Detected (NOT DETECT); Influenza A Not Detected (NOT DETECT); Influenza A H1 Not Detected (NOT DETECT); Influenza A H1-2009 Not Detected (NOT DETECT); Influenza A H3 Not Detected (NOT DETECT); Influenza B Not Detected (NOT DETECT); Mycoplasma Pneumoniae Not Detected (NOT DETECT); Parainfluenza Virus Type 1 Not Detected (NOT DETECT); Parainfluenza Virus Type 2 Not Detected (NOT DETECT); Parainfluenza Virus Type 3 Not Detected (NOT DETECT); Parainfluenza Virus Type 4 Not Detected (NOT DETECT); Respiratory Syncytial Virus A Not Detected (NOT DETECT); Respiratory Syncytial Virus B Not Detected (NOT DETECT); SARS-COV-2 Not Detected (NOT DETECT)
[2023-08-28] MEDS: azithromycin 500 MG in sodium chloride 0.9% 250 ML 250 MG IV (01:34)
--- NOTE | 2023-08-28 01:38 | PC.NURSE ---
report called to Haley at [facility]. Haley had no further questions.
--- NOTE | 2023-08-28 06:09 | PC.NURSE ---
updated pt on transport delay. pt verbalized no further questions or needs at this time. pt resting in room 11, states comfortably in no pain.
== END 2023-08-28 09:03 | disposition home or self-care (01) ==
PROVIDERS: Emergency Medicine; Nurse Practitioner Family; Emergency Provider Family Medicine; PCP Student in an Organized Health Care Education/Training Program
DX: J44.0 Chronic obstructive pulmonary disease with (acute) lower respiratory infection (principal); J18.9 Pneumonia, unspecified organism; Z79.82 Long term (current) use of aspirin; Z11.52 Encounter for screening for COVID-19; Z72.0 Tobacco use
CPT/HCPCS: 36415; 71045; 80053; 80306; 81003; 82803; 83605; 83735; 84145; 84443; 84484; 85025; 87040; 87486; 87581; 87633; 93005; 93010; 94640; 96365; 96366; 96367; 99285; J0131; J0456; J0696; J7030; J7040; J7050

== ENCOUNTER 2024-02-03 10:37 | Emergency (ER) | payer MEDICARE, MEDICAID, SELFPAY ==
[2024-02-03 10:38] VITALS: BP 131/67; PULSE 81; TEMP 36.8; O2SAT 95; BMI 22.8
--- NOTE | 2024-02-03 10:40 | ECG_ITS ---
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 Measurements Intervals [place] Rate: 79 P: 68 HI: 185 QRS: 29 QRSD: 89 T: 60 QT: 381 QTc: 438 Interpretive Statements SINUS RHYTHM WITH OCCASIONAL SUPRAVENTRICULAR PREMATURE COMPLEXES Compared to ECG 08/28/2023 00:21:09 ST (T wave) deviation no longer present Electronically Signed On 02-03-2024 22:47:26 CDT by Abiola Stubbs M.D. [id number]
--- NOTE | 2024-02-03 10:40 | XRR_ITS ---
PROCEDURE INFORMATION: Exam: XR Chest Exam date and time: 02/03/2024 10:51 AM Age: 73 years old Clinical indication: Shortness of breath; Patient HX: SOB x 3days, prescribed oxygen 30/04, history of asthma, emphysema, copd, current smoker TECHNIQUE: Imaging protocol: Radiologic exam of the chest. Views: 1 view. COMPARISON: CR XR chest 1V portable [id number] 08/27/2023 10:35 PM FINDINGS: Lungs: Both lungs demonstrate chronic interstitial coarsening. No lung mass or infiltrate. Pleural spaces: Unremarkable. No pleural effusion. No pneumothorax. Heart/Mediastinum: Unremarkable. No cardiomegaly. Bones/joints: Unremarkable. XR/XR chest 1V portable [id number] IMPRESSION: No acute findings.
--- NOTE | 2024-02-03 10:45 | ED_ITS ---
HPI - SOB/Dyspnea 2 General: Chief Complaint: Shortness of Breath/Dyspnea Stated Complaint: SOB Time Seen by Provider: 02/03/24 10:39 Source: patient and EMS Mode of arrival: EMS Limitations: no limitations History of Present Illness: HPI Narrative: 73-year-old female history of COPD she i s on 3 and half liters oxygen at baseline at long term. She states that she has had increasing shortness of breath last 3 days she does not have any albuterol nebulizers ordered there. Patient given breathing treatment and route. She has some improvement. Patient denies any increased cough or fever Associated symptoms: Deny abdominal pain, chest pain, fever(s), nausea or vomiting Review of Systems 2 Const: Denies: fever(s), chills, body aches or change in appetite ENMT: Denies: throat pain or dental pain Card: Denies: chest pain Resp: Reports: dyspnea and wheezing GI: Denies: abdominal pain, nausea, vomiting or diarrhea : Denies: dysuria Musc: Denies: neck pain or back pain Skin/Breast: Denies: rash Neuro: Denies: headache(s) PFSH ED 2 PFSH: Medical History Chronic kidney disease Nicotine dependence Non-STEMI (non-ST elevated myocardial infarction) Delirium Dementia Acute respiratory failure with hypoxia and hypercapnia Acute exacerbation of chronic obstructive airways disease COPD (chronic obstructive pulmonary disease) Social History Smoking and tobacco/nicotine status: current every day tobacco/nicotine user Physical Exam 2 Const: COMMON NORMALS: patient oriented x3 HENMT: COMMON NORMALS: normocephalic and atraumatic HEAD & SCALP: n ormocephalic and atraumatic Eye: COMMON NORMALS: Equal, round and reactive pupils present and EOMs intact bilaterally PUPIL: Yes Equal, round and reactive pupils present Neck/C-Spine: COMMON NORMALS: full ROM and supple Chest: COMMONS NORMALS: normal inspection of the chest Resp: COMMON NORMALS: normal respiratory effort, No retractions and No use of accessory muscles AUSCULTATION: wheezes Cardio: COMMON NORMALS: regular rate, regular rhythm and No murmurs present (Cardio) RATE: regular rate RHYTHM: regular rhythm Extremity: COMMON NORMALS: normal to inspection and full ROM Neuro: COMMON NORMALS: patient oriented x3, moves all extremities and no focal motor deficits Psych: COMMON NORMALS: mental status grossly normal, Normal thought process present and cooperative THOUGHT PROCESS: Normal thought process present Skin: COMMON NORMALS: no rashes or lesions noted and no wounds GENERAL SKIN EXAM: no rashes or lesions noted Course 2 Vital Signs: Vital signs: Vital Signs Temperature 98.3 F 02/03/24 10:38 Pulse Rate 87 02/03/24 12:56 Respiratory Rate 22 H 02/03/24 12:56 Blood Pressure 128/71 02/03/24 12:56 Pulse Oximetry 94 02/03/24 12:56 Oxygen Delivery Me thod Nasal Cannula 02/03/24 12:56 Oxygen Flow Rate 3 02/03/24 12:56 MDM - SOB/Dyspnea Medical Decision Making Patient presents with COPD exacerbation she is much improved here after breathing treatment will place her on prednisone along with albuterol nebulized treatments. Blood work x-ray here is normal she is stable for discharge she is follow-up with PCP return if worsening. Medical Records I reviewed the patient's medical records. Lab Data I reviewed the patient's lab results. 02/03/24 10:52 02/03/24 10:52 Labs/Radiology: Radiology Impressions Chest X-Ray 02/03/24 10:40 IMPRESSION: No acute findings. Laboratory Results WBC 9.33 10^3/uL (3.29-11.43) 02/03/24 10:52 RBC 4.07 10^6/uL (3.85-5.65) 02/03/24 10:52 Hgb 11.30 g/dL (11.27-16.99) 02/03/24 10:52 Hct 37.0 % (36-47) 02/03/24 10:52 MCV 90.9 fl (85-98) 02/03/24 10:52 MCH 27.8 pg (27-33) 02/03/24 10:52 MCHC 30.5 g/dL (30-55) 02/03/24 10:52 RDW 15.3 % (12.1-15.1) H 02/03/24 10:52 Plt Count 261 10^3/cmm (157-399) 02/03/24 10:52 MPV 9.1 fL (7.4-10.4) 02/03/24 10:52 Neut % (Auto) 60.5 % 02/03/24 10:52 Lymph % (Auto) 24.0 % 02/03/24 10:52 [place] % (Auto) 7.4 % 02/03/24 10:52 Eos % (Auto) 6.8 % 02/03/24 10:52 Baso % (Auto) 0.8 % 02/03/24 10:52 Neut # (Auto) 5.65 10^3/uL (1.8-7.7) 02/03/24 10:52 Lymph # (Auto) 2.2 10^3/uL (0.8-4.8) 02/03/24 10:52 [place] # (Auto) 0.7 10^3/uL (0.2-0.9) 02/03/24 10:52 Eos # (Auto) 0.6 10^3/uL (0.0-0.8) 02/03/24 10:52 Baso # (Auto) 0.1 10^3/uL (0.0-0.1) 02/03/24 10:52 Nucleated RBC % (auto) 0 % 02/03/24 10:52 Nucleated RBCs # 0.0 /100WBC 02/03/24 10:52 Specimen Type Arterial 02/03/24 11:02 Sample Site Brachial, left 02/03/24 11:02 ABG pH 7.34 (7.35-7.45) L 02/03/24 11:02 ABG pCO2 54.9 mmHg (35-45) H 02/03/24 11:02 ABG pO2 79.1 mmHg (80.0-100.0) L 02/03/24 11:02 ABG PO2/FiO2 Ratio 0 02/03/24 11:02 ABG HCO3 29.6 mmol/L (22-26) H 02/03/24 11:02 ABG Base Excess 2.9 mmol/L (-2.0-2.0) H 02/03/24 11:02 [place] Test N/a 02/03/24 11:02 Hematocrit 34.7 % (37-47) L 02/03/24 11:02 Hgb O2 Saturation 95.2 % (95-100) 02/03/24 11:02 Carboxyhemoglobin 1.2 %THgb (0.4-20.1) 02/03/24 11:02 Methemoglobin 0.4 % (0.4-1.5) 02/03/24 11:02 Total Hemoglobin 11.3 g/dL (12-16) L 02/03/24 11:02 O2 Delivery Device Nc 02/03/24 11:02 O2 Liters/Min 3.0 % 02/03/24 11:02 FiO2 32.0 % 02/03/24 11:02 Ship Keeper ID Amh 02/03/24 11:02 Sodium 137 mmol/L (136-145) 02/03/24 10:52 Potassium 4.4 mmol/L (3.5-5.1) 02/03/24 10:52 Chloride 96 mmol/L (98-107) L 02/03/24 10:52 Carbon Dioxide 30 mmol/L (22-29) H 02/03/24 10:52 Anion Gap 15.4 (5-19) 02/03/24 10:52 BUN 14 mg/dL (8-23) 02/03/24 10:52 Creatinine 1.1 mg/dL (0.5-0.9) H 02/03/24 10:52 GFR Calculation Not Reportable 02/03/24 10:52 Glucose 105 mg/dL (65-115) 02/03/24 10:52 Calculated Osmolality 285 mOsm/kg (285-295) 02/03/24 10:52 Calcium 9.6 mg/dL (8.5-10.5) 02/03/24 10:52 Total Bilirubin 0.3 mg/dL (0.15-1.2) 02/03/24 10:52 AST 22 U/L (0-32) 02/03/24 10:52 ALT 14 U/L (0-33) 02/03/24 10:52 Alkaline Phosphatase 129 U/L (35-105) H 02/03/24 10:52 NT-Pro-B Natriuret Pep 438 pg/mL (0-450) 02/03/24 10:52 Total Protein 8.2 g/dL (6.6-8.7) 02/03/24 10:52 Albumin 4.3 g/dL (3.5-5.2) 02/03/24 10:52 Globulin 3.9 g/dL (1.3-4.6) 02/03/24 10:52 All radiology interpretation(s) finalized by discharge EKG Data EKG 1: I personally reviewed and interpreted this EKG as follows: EKG Interpretation Date: 02/03/24 EKG interpretation time: 10:58 Interpretation: nsr hr [address] or t wave abnormalities qrs 89 qtc 416 Discharge Plan Discharge Patient Disposition: Home Clinical Impression: Acute exacerbation of chronic obstructive airways disease Condition: Stable Prescriptions: New albuterol sulfate 2.5 mg /3 mL (0.083 %) solution for nebulization 2.5 mg INHALATION Q4H PRN (Reason: shortness of breath or wheezing) Qty: 90 0RF prednisone 50 mg tablet 50 mg PO DAILY Qty: 5 0RF No Action hydrocodone-acetaminophen 10-325 mg tablet 1 tab PO BID gabapentin 300 mg capsule 300 mg PO BID multivitamin with iron-mineral Tablet 1 tab PO QAM magnesium citrate Solution See Rx Instructions .ROUTE .COMPLEX Rx Instructions: 10 oz po after dulcolax if no bm if needed for constipation alum-mag hydroxide-simeth 200-200-20 mg/5 mL Suspension 30 ml PO .EVERY 2 HOURS PRN (Reason: Indigestion) ondansetron 4 mg Tablet,Disintegrating 4 mg PO Q6H PRN (Reason: Nausea And Vomiting) albuterol sulfate 90 mcg/actuation HFA aerosol inhaler 2 puff INHALATION Q6H PRN (Reason: Shortness Of Breath Or Wheezing) Qty: 6.7 2RF pantoprazole 20 mg tablet,delayed release (DR/EC) 20 mg PO DAILY famotidine 20 mg Tablet 20 mg PO BEDTIME Miralax 17 gram/dose Powder 4 g PO DAILY PRN (Reason: Constipation) Refresh 1 % Drops, Liquid Gel 1 drp OPHTHALMIC (EYE) BID Ocuvite Tablet 1 tab PO DAILY bupropion HCl 200 mg tablet sustained-release 12 hr 200 mg PO DAILY Trelegy Ellipta 100-62.5-25 mcg Blister With Device 1 inh INHALATION DAILY acetaminophen [Tylenol] 325 mg Tablet 650 mg PO Q4H PRN (Reason: Pain) hydrocodone-acetaminophen 5-325 mg tablet 1 tab PO Q4H PRN (Reason: Pain) aspirin 81 mg Tablet,Delayed Release (Dr/Ec) 81 mg PO QAM simvastatin 40 mg tablet 40 mg PO BEDTIME magnesium hydroxide [Milk of Magnesia] 400 mg/5 mL Suspension See Rx Instructions .ROUTE .COMPLEX PRN (Reason: Constipation) Rx Instructions: 30 mL po every 3rd day as needed for no bm bisacodyl [Dulcolax (bisacodyl)] 10 mg Suppository See Rx Instructions .ROUTE .COMPLEX Rx Instructions: 1 suppository rectally after mom if no bm as needed only if pt refuses tabs ropinirole 0.5 mg tablet 0.5 mg PO BEDTIME montelukast 10 mg tablet 10 mg PO BEDTIME bisacodyl [Dulcolax (bisacodyl)] 5 mg Tablet,Delayed Release (Dr/Ec) 20 mg PO DAILY PRN (Reason: after mom for no bm) sertraline 50 mg tablet 75 mg PO BEDTIME loratadine 10 mg Tablet 10 mg PO QAM sertraline 100 mg tablet 100 mg PO BEDTIME Discharge Orders: Discharge ED (Routine); Ordered 02/03/24 Ordered By: Kevin Barker Referrals: Fred Treviño [Primary Care Provider] - Discharge Diet: Advance as tolerated Discharge Activity: Resume usual activity Patient Instructions: COPD (Chronic Obstructive Pulmonary Disease) (ED) Coding Level of Care Code ED [employer] 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
[2024-02-03 10:55] LABS: Basophils # 0.1 10^3/uL (0.0-0.1); Basophils % 0.8 %; Eosinophils # 0.6 10^3/uL (0.0-0.8); Eosinophils % 6.8 %; Lymphocytes # 2.2 10^3/uL (0.8-4.8); Mean Corpuscular HGB Conc 30.5 g/dL (30-55); Mean Corpuscular Hemoglobin 27.8 pg (27-33); Mean Corpuscular Volume 90.9 fl (85-98); Mean Platelet Volume 9.1 fL (7.4-10.4); Monocytes # 0.7 10^3/uL (0.2-0.9); Monocytes % 7.4 %; Neutrophils # 5.65 10^3/uL (1.8-7.7); Neutrophils % 60.5 %; Nucleated Red Blood Cells % 0 %; Platelet Count 261 10^3/cmm (157-399); Red Blood Count 4.07 10^6/uL (3.85-5.65); Red Cell Distribution Width 15.3 % (12.1-15.1); White Blood Count 9.33 10^3/uL (3.29-11.43)
[2024-02-03] MEDS: albuterol 2.5 mg/3 mL Neb 5 MG INHALATION (11:00)
[2024-02-03 11:07] VITALS: BP 131/87; PULSE 80; O2SAT 95
[2024-02-03 11:08] VITALS: PULSE 80; RESP 20; O2SAT 95
[2024-02-03 11:13] LABS: ABG PCO2 54.9 mmHg (35-45); ABG PH Result 7.34 (7.35-7.45); Arterial Blood Gas Hematocrit 34.7 % (37-47); Base Excess ABG 2.9 mmol/L (-2.0-2.0); Blood Gas Sample Site Brachial, left; Blood Gas Sample Type Arterial; Carboxyhemoglobin 1.2 %THgb (0.4-20.1); HCO3 ABG 29.6 mmol/L (22-26); HGB O2 Sat 95.2 % (95-100); Methemoglobin 0.4 % (0.4-1.5); PO2 ABG 79.1 mmHg (80.0-100.0); Total Hemoglobin 11.3 g/dL (12-16)
[2024-02-03 11:14] LABS: Blood Gas Operator Identificat AMH; Oxygen Device NC; PO2 FiO2 Ratio Arterial Blood 0
[2024-02-03 11:22] LABS: Alanine Aminotransferase 14 U/L (0-33); Albumin Level 4.3 g/dL (3.5-5.2); Alkaline Phosphatase 129 U/L (35-105); Anion Gap 15.4 (5-19); Aspartate Amino Transferase 22 U/L (0-32); Blood Urea Nitrogen 14 mg/dL (8-23); Calcium 9.6 mg/dL (8.5-10.5); Carbon Dioxide 30 mmol/L (22-29); Chloride 96 mmol/L (98-107); Globulin 3.9 g/dL (1.3-4.6); Glucose 105 mg/dL (65-115); NT Pro B Type Natriuretic Pept 438 pg/mL (0-450); Osmolality Calculated 285 mOsm/kg (285-295); Potassium 4.4 mmol/L (3.5-5.1); Sodium 137 mmol/L (136-145); Total Bilirubin 0.3 mg/dL (0.15-1.2); Total Protein 8.2 g/dL (6.6-8.7)
[2024-02-03 11:26] LABS: Creatinine Clr Calc Pharmacy 44.2625
[2024-02-03 12:56] VITALS: BP 128/71; PULSE 87; RESP 22; O2SAT 94
== END 2024-02-03 15:01 | disposition home or self-care (01) ==
PROVIDERS: Emergency Provider Emergency Medicine; PCP Student in an Organized Health Care Education/Training Program
DX: J44.1 Chronic obstructive pulmonary disease with (acute) exacerbation (principal); Z79.82 Long term (current) use of aspirin; N18.9 Chronic kidney disease, unspecified; I25.2 Old myocardial infarction; F03.90 Unspecified dementia, unspecified severity, without behavioral disturbance, psychotic disturbance, mood disturbance, and anxiety; Z72.0 Tobacco use
CPT/HCPCS: 36415; 36600; 71045; 80053; 82805; 83880; 85025; 93005; 94640; 99285; J7613

== ENCOUNTER 2024-04-17 11:06 | Observation (INO) | payer MEDICARE, MEDICAID, SELFPAY ==
[2024-04-17] VITALS (44 sets, daily range): BP systolic 77–124; BP diastolic 54–77; PULSE 64–150; RESP 15–25; TEMP 36.8–37.1; O2SAT 91–100; BMI 23.0
--- NOTE | 2024-04-17 11:17 | ECG_ITS ---
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 Measurements Intervals [place] Rate: 139 P: 0 MA: 0 QRS: 68 QRSD: 86 T: -13 QT: 272 QTc: 415 Interpretive Statements ATRIAL FIBRILLATION WITH RAPID VENTRICULAR RESPONSE POSSIBLE RIGHT VENTRICULAR CONDUCTION DELAY [RSR (QR) IN V1/V2] NONSPECIFIC T-WAVE ABNORMALITY Compared to ECG 02/03/2024 10:58:03 T-wave abnormality now present Sinus rhythm no longer present Electronically Signed On 04-17-2024 23:23:14 CDT by Abiola Stubbs M.D. [id number]
--- NOTE | 2024-04-17 11:32 | XRR_ITS ---
PROCEDURE INFORMATION: Exam: XR Chest Exam date and time: 04/17/2024 11:36 AM Age: 73 years old Clinical indication: Cardiovascular condition or disease; Atrial fibrillation; Additional info: New a-fib TECHNIQUE: Imaging protocol: Radiologic exam of the chest. Views: 1 view. COMPARISON: CR XR chest 1V portable [id number] 02/03/2024 10:51 AM FINDINGS: Lungs: Unremarkable. No consolidation. Pleural spaces: Unremarkable. No pleural effusion. No pneumothorax. Heart/Mediastinum: Unremarkable. No cardiomegaly. Bones/joints: Unremarkable. XR/XR chest 1V portable [id number] IMPRESSION: No acute findings.
--- NOTE | 2024-04-17 11:33 | ECG_ITS ---
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 Measurements Intervals [place] Rate: 70 P: 0 VT: 0 QRS: 19 QRSD: 86 T: 61 QT: 377 QTc: 409 Interpretive Statements Possible sinus rhythm POSSIBLE RIGHT VENTRICULAR CONDUCTION DELAY [RSR (QR) IN V1/V2] SEPTAL MYOCARDIAL INFARCTION , OF INDETERMINATE AGE [40+ ms Q WAVE IN V1/V2] Compared to ECG 04/17/2024 11:17:24 Supraventricular rhythm now present Myocardial infarct finding now present Atrial fibrillation no longer present T-wave abnormality no longer present Electronically Signed On 04-17-2024 23:24:29 CDT by Abiola Stubbs M.D. [id number]
--- NOTE | 2024-04-17 11:35 | ED_ITS ---
HPI - Arrhythmia/Palpitations 2 General: Chief Complaint: Arrhythmia/Palpitations Stated Complaint: afib Time Seen by Provider: 04/17/24 11:10 Source: patient and EMS Mode of arrival: EMS History of Present Illness: This patient was transported to the emergency department via EMS. She states she was in her normal state of health. She lives in a long-term care facility. She states that she woke up had breakfast and then after breakfast was seen by the nurse practitioner who noted a rapid heart rate and directed the patient to the emergency department for further evaluation. The patient states she feels normal has no chest pain shortness of breath or other constitutional symptoms at this time. She denies palpitations and She denies any history of arrhythmia. She has oxygen dependent COPD and wears oxygen at approximately 2 L normally. She states that she has been carrying out her usual activities of daily living without issue. She denies any recent illness to include fever congestion cough etc. States her bowel and bladder habits have been normal. She states she did have some pain and what she calls swelling in her left leg a couple to 3 weeks ago but there was no injury involved and it has not impaired her in any way. She has no history of thromboembolic disease. Prior to arrival the patient received a diltiazem dose IV via EMS. Apparently at that time her heart rate was in the 150s and it brought her heart rate down into the lower 100s. Patient still smokes tobacco states she takes her oxygen off to do so. complaint: rapid heart beat Associated symptoms: Deny nausea, pre-syncope, syncope or vomiting Review of Systems 2 Const: Denies: fever(s) or chills ENMT: Denies: odynophagia, nasal discharge or nasal congestion Card: Denies: chest pain, lightheadedness, syncope or pre-syncope Resp: Denies: dyspnea, productive cough or non-productive cough GI: Denies: abdominal pain, nausea, vomiting or diarrhea : Denies: flank pain Musc: Denies: neck pain or back pain Skin/Breast: Denies: rash Neuro: Denies: headache(s), numbness in extremities or weakness in extremities PFSH ED 2 PFSH: Medical History Chronic kidney disease Nicotine dependence Non-STEMI (non-ST elevated myocardial infarction) Delirium Dementia Acute respiratory failure with hypoxia and hypercapnia Acute exacerbation of chronic obstructive airways disease COPD (chronic obstructive pulmonary disease) Social History Smoking and tobacco/nicotine status: current every day tobacco/nicotine user Physical Exam 2 Narrative: EXAM NARRATIVE: She is very comfortable interacts appropriately answers questions in a goal- directed fashion. Const: COMMON NORMALS: no acute distress, average body habitus and patient oriented x3 GENERAL APPEARANCE: cooperative and comfortable HENMT: COMMON NORMALS: normocephalic, Normal nasal mucous membranes and turbinates present, moist oral mucous membranes and oropharynx normal HEAD & SCALP: normocephalic FACE & SINUS: normal facial exam NOSE: Normal nasal mucous membranes and turbinates present Eye: COMMON NORMALS: Equal, round and reactive pupils present, EOMs intact bilaterally and conjunctivae normal CONJUNCTIVA: Yes conjunctivae normal P UPIL: Yes Equal, round and reactive pupils present Neck/C-Spine: COMMON NORMALS: full ROM, no lymphadenopathy and no JVD Chest: COMMONS NORMALS: normal inspection of the chest Resp: COMMON NORMALS: normal respiratory effort and No use of accessory muscles OTHER: She has notable crackles at the bases of both lungs. No wheezing at this time. Cardio: COMMON NORMALS: no JVD and No murmurs present (Cardio) RATE: t achycardic RHYTHM: abnormal rhythm irregularly irregular GI: COMMON NORMALS: Normal to inspection, nondistended, normoactive bowel sounds present, Soft to palpation and non-tender PALPATION: Yes Soft to palpation : COMMON NORMALS: Yes no CVA tenderness BLADDER/KIDNEY EXAM: Yes no CVA tenderness Back/Pelvis: COMMON NORMALS: no CVA tenderness, thoracic and lumbar spine normal to inspection and no thoracic nor lumbar tenderness Extremity: COMMON NORMALS: normal to inspection, full ROM, capillary refill normal, no calf tenderness and no pedal edema Neuro: COMMON NORMALS: patient oriented x3, moves all extremities, no focal motor deficits and no sensory deficits noted Psych: COMMON NORMALS: mental status grossly normal Skin: COMMON NORMALS: no rashes or lesions noted and turgor normal GENERAL SKIN EXAM: no rashes or lesions noted and turgor normal Course 2 Reevaluation(s): Reevaluation #1: POCUS used to evaluate cardiac function and a limited fashion. Using phased- array foot probe subxiphoid view four-chamber view was noted. She had no evidence of gross wall motion abnormality. Her RV appeared to collapse in systole. There is no evidence of pericardial effusion. AP parasternal long axis view was also obtained which revealed similar findings. Time: 11:41 Reevaluation #2: Patient is now in sinus rhythm with a reasonable acceptable blood pressure. She will likely benefit from a period of observation so that she can be transition to oral therapy. Time: 13:04 Consultations: Consultation #1: Discussed with Dr. Calvillo who agreed to place the patient in observation status for continued observation, transitioning to oral therapy and rate monitoring. Time: 13:20 Vital Signs: Vital signs: Vital Signs Temperature 98.3 F 04/17/24 11:17 Pulse Rate 103 H 04/17/24 12:15 Respiratory Rate 19 H 04/17/24 12:15 Blood Pressure 83/60 04/17/24 12:15 Pulse Oximetry 96 04/17/24 12:15 Oxygen Delivery Me thod Nasal Cannula 04/17/24 12:15 Oxygen Flow Rate 3 04/17/24 12:15 MDM - Arrhythmia/Palpitations Medical Decision Making This patient was transferred to our emergency department from the [facility] where she was noted to have a rapid heart rate. The patient was asymptomatic. No history of arrhythmias. Has a history of oxygen dependent COPD but otherwise no known cardiovascular issues. EMS transported her and was noted what appeared to be atrial fibrillation and she was given diltiazem prior to arrival. On arrival she was noted to have rapid ventricular response and appeared to have an underlying atrial fibrillation rhythm. Workup included bedside ultrasound which revealed gross wall motion normal movement without any evidence of pericardial effusion. D-dimer was obtained to ensure no evidence of occult DVT or thromboembolic issues contributing to her current presentation. She received IV fluids, magnesium, diltiazem both bolus and infusion to control her rate. Chest x-ray was clear without any evidence of infiltrate and/or cardiomegaly and/or other pulmonary pathology. Initial troponin was slightly elevated but this is likely rate dependent given her age. Will be trended as well. To ensure no ACS. TSH was normal mitigating against thyroid contribution to her current rhythm. She will be placed in observation status in the [facility] for continued rate control and transitioning to oral therapy and additional testing as indicated such as echocardiogram etc. Hospitalist will discuss long-term anticoagulation with the patient. Lab Data 04/17/24 11:14 04/17/24 12:06 Radiology Impressions Chest X-Ray 04/17/24 11:32 IMPRESSION: No acute findings. Laboratory Results WBC 10.26 10^3/uL (3.29-11.43) 04/17/24 11:14 RBC 3.77 10^6/uL (3.85-5.65) L 04/17/24 11:14 Hgb 10.70 g/dL (11.27-16.99) L 04/17/24 11:14 Hct 34.8 % (36-47) L 04/17/24 11:14 MCV 92.3 fl (85-98) 04/17/24 11:14 MCH 28.4 pg (27-33) 04/17/24 11:14 MCHC 30.7 g/dL (30-55) 04/17/24 11:14 RDW 14.7 % (12.1-15.1) 04/17/24 11:14 Plt Count 322 10^3/cmm (157-399) 04/17/24 11:14 MPV 10.3 fL (7.4-10.4) 04/17/24 11:14 Neut % (Auto) 50.7 % 04/17/24 11:14 Lymph % (Auto) 30.5 % 04/17/24 11:14 [place] % (Auto) 9.0 % 04/17/24 11:14 Eos % (Auto) 8.9 % 04/17/24 11:14 Baso % (Auto) 0.7 % 04/17/24 11:14 Neut # (Auto) 5.21 10^3/uL (1.8-7.7) 04/17/24 11:14 Lymph # (Auto) 3.1 10^3/uL (0.8-4.8) 04/17/24 11:14 [place] # (Auto) 0.9 10^3/uL (0.2-0.9) 04/17/24 11:14 Eos # (Auto) 0.9 10^3/uL (0.0-0.8) H 04/17/24 11:14 Baso # (Auto) 0.1 10^3/uL (0.0-0.1) 04/17/24 11:14 Nucleated RBC % (auto) 0 % 04/17/24 11:14 Nucleated RBCs # 0.0 /100WBC 04/17/24 11:14 D-Dimer 0.58 ug/mLFEU (0-0.59) 04/17/24 12:06 Sodium 139 mmol/L (136-145) 04/17/24 12:06 Potassium 4.8 mmol/L (3.5-5.1) 04/17/24 12:06 Chloride 101 mmol/L (98-107) 04/17/24 12:06 Carbon Dioxide 29 mmol/L (22-29) 04/17/24 12:06 Anion Gap 13.8 (5-19) 04/17/24 12:06 BUN 18 mg/dL (8-23) 04/17/24 12:06 Creatinine 1.2 mg/dL (0.5-0.9) H 04/17/24 12:06 GFR Calculation Not Reportable 04/17/24 12:06 Glucose 116 mg/dL (65-115) H 04/17/24 12:06 Calculated Osmolality 291 mOsm/kg (285-295) 04/17/24 12:06 Calcium 9.1 mg/dL (8.5-10.5) 04/17/24 12:06 Magnesium 2.0 mg/dL (1.7-2.3) 04/17/24 12:06 Total Bilirubin 0.2 mg/dL (0.15-1.2) 04/17/24 12:06 AST 15 U/L (0-32) 04/17/24 12:06 ALT 9 U/L (0-33) 04/17/24 12:06 Alkaline Phosphatase 120 U/L (35-105) H 04/17/24 12:06 Troponin T Baseline 17 ng/L (0-10) H 04/17/24 12:06 Troponin T 120 Minute 16.89 ng/L (0-10) H 04/17/24 12:54 Delta Troponin T -0.11 ABS# (0-10) L 04/17/24 12:54 NT-Pro-B Natriuret Pep 216 pg/mL (0-450) 04/17/24 12:06 Total Protein 7.1 g/dL (6.6-8.7) 04/17/24 12:06 Albumin 3.7 g/dL (3.5-5.2) 04/17/24 12:06 Globulin 3.4 g/dL (1.3-4.6) 04/17/24 12:06 TSH 2.21 uIU/mL (0.27-4.20) 04/17/24 12:06 All radiology interpretation(s) finalized by discharge Discharge Plan Discharge Clinical Impression: Atrial fibrillation with rapid ventricular response Condition: Stable Prescriptions: No Action hydrocodone-acetaminophen 10-325 mg tablet 1 tab PO BID gabapentin 300 mg capsule 300 mg PO BID alum-mag hydroxide-simeth 200-200-20 mg/5 mL Suspension 30 ml PO .EVERY 2 HOURS PRN (Reason: Indigestion) ondansetron 4 mg Tablet,Disintegrating 4 mg PO Q6H PRN (Reason: Nausea And Vomiting) albuterol sulfate 90 mcg/actuation HFA aerosol inhaler 2 puff INHALATION Q6H PRN (Reason: Shortness Of Breath Or Wheezing) Qty: 6.7 2RF pantoprazole 20 mg tablet,delayed release (DR/EC) 20 mg PO DAILY famotidine 20 mg Tablet 20 mg PO BEDTIME carboxymethylcellulose sodium [Refresh] 1 % Drops, Liquid Gel 1 drp OPHTHALMIC (EYE) BID Ocutabs Tablet 1 tab PO DAILY bupropion HCl 200 mg tablet sustained-release 12 hr 200 mg PO DAILY albuterol sulfate 2.5 mg /3 mL (0.083 %) solution for nebulization 2.5 mg INHALATION Q4H PRN (Reason: shortness of breath or wheezing) Qty: 90 0RF multivitamin with minerals Tablet 1 tab PO DAILY Biofreeze (menthol) 4 % Gel 1 applic TOPICAL DAILY PRN (Reason: SORE JOINTS) Anoro Ellipta 62.5-25 mcg/actuation blister with device 1 inh INHALATION DAILY Airsupra 90-80 mcg/actuation HFA aerosol inhaler 2 inh INHALATION Q6H PRN (Reason: COPD) acetaminophen [Tylenol] 325 mg Tablet 650 mg PO Q4H PRN (Reason: Pain) hydrocodone-acetaminophen 5-325 mg tablet 1 tab PO Q4H PRN (Reason: Pain) aspirin 81 mg Tablet,Delayed Release (Dr/Ec) 81 mg PO QAM simvastatin 40 mg tablet 40 mg PO BEDTIME magnesium hydroxide [Milk of Magnesia] 400 mg/5 mL Suspension See Rx Instructions .ROUTE .COMPLEX PRN (Reason: Constipation) Rx Instructions: 30 mL po every 3rd day as needed for no bm ropinirole 0.5 mg tablet 0.5 mg PO BEDTIME montelukast 10 mg tablet 10 mg PO BEDTIME bisacodyl [Dulcolax (bisacodyl)] 5 mg Tablet,Delayed Release (Dr/Ec) 20 mg PO DAILY PRN (Reason: after mom for no bm) sertraline 50 mg tablet 75 mg PO BEDTIME loratadine 10 mg Tablet 10 mg PO QAM sertraline 100 mg tablet 100 mg PO BEDTIME Referrals: Fred Treviño [Primary Care Provider] - Coding Level of Care Code ED 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
[2024-04-17 11:47] LABS: Basophils # 0.1 10^3/uL (0.0-0.1); Basophils % 0.7 %; Eosinophils # 0.9 10^3/uL (0.0-0.8); Eosinophils % 8.9 %; Hematocrit 34.8 % (36-47); Lymphocytes # 3.1 10^3/uL (0.8-4.8); Lymphocytes % 30.5 %; Mean Corpuscular HGB Conc 30.7 g/dL (30-55); Mean Corpuscular Hemoglobin 28.4 pg (27-33); Mean Corpuscular Volume 92.3 fl (85-98); Mean Platelet Volume 10.3 fL (7.4-10.4); Monocytes # 0.9 10^3/uL (0.2-0.9); Neutrophils # 5.21 10^3/uL (1.8-7.7); Neutrophils % 50.7 %; Nucleated Red Blood Cells % 0 %; Platelet Count 322 10^3/cmm (157-399); Red Blood Count 3.77 10^6/uL (3.85-5.65); Red Cell Distribution Width 14.7 % (12.1-15.1); White Blood Count 10.26 10^3/uL (3.29-11.43)
[2024-04-17] MEDS: dilTIAZem 5 mg/mL SDV 5 mL 20 MG IVP (11:53)
[2024-04-17] MEDS: dilTIAZem 100 MG in sodium chloride 0.9% (add-van) 100 ML IV (11:59)
[2024-04-17] MEDS: calcium gluconate 0.1 gm/mL 10% SDV 10mL 1 GM IVP (12:15)
[2024-04-17 12:29] LABS: D Dimer 0.58 ug/mLFEU (0-0.59)
[2024-04-17 12:32] LABS: Troponin(5th) Baseline 17 ng/L (0-10)
[2024-04-17] MEDS: magnesium sulfate premix 2 GM/50 ML PIGGYBACK IV (12:33)
[2024-04-17 12:50] LABS: Alanine Aminotransferase 9 U/L (0-33); Albumin Level 3.7 g/dL (3.5-5.2); Alkaline Phosphatase 120 U/L (35-105); Anion Gap 13.8 (5-19); Aspartate Amino Transferase 15 U/L (0-32); Blood Urea Nitrogen 18 mg/dL (8-23); Calcium 9.1 mg/dL (8.5-10.5); Carbon Dioxide 29 mmol/L (22-29); Chloride 101 mmol/L (98-107); Creatinine Clr Calc Pharmacy 40.6901; Globulin 3.4 g/dL (1.3-4.6); Glucose 116 mg/dL (65-115); NT Pro B Type Natriuretic Pept 216 pg/mL (0-450); Osmolality Calculated 291 mOsm/kg (285-295); Potassium 4.8 mmol/L (3.5-5.1); Sodium 139 mmol/L (136-145); Thyroid Stimulating Hormone 2.21 uIU/mL (0.27-4.20); Total Bilirubin 0.2 mg/dL (0.15-1.2); Total Protein 7.1 g/dL (6.6-8.7)
[2024-04-17 13:19] LABS: Troponin 5 2HR 16.89 ng/L (0-10)
[2024-04-17 13:24] LABS: Troponin 5 2HR Delta -0.11 ABS# (0-10)
[2024-04-17] MEDS: sodium chloride 0.9% 1,000 ML 125 ML IV (13:41)
[2024-04-17] MEDS: dilTIAZem 30 mg Tablet PO ×2 (15:20→20:35)
--- NOTE | 2024-04-17 15:40 | USCV_ITS ---
Ev Chaves Age: 73 Gender: F : 1950 Exam Date: 04/17/2024 18:31 Ordering Phys: Emmanuel Mcmahon MD Technologist: ABA Exam Location: [facility] [place] Indication: new onset Atrial Fibrillation. ; [id number] COPD 2L. BP: 108 / 77 HR: 84 Rhythm: Sinus Technical Quality: Adequate MEASUREMENTS (Male / Female) Normal Values 2D ECHO LV Diastolic Diameter PLAX 3.8 cm 4.2 - 5.9 / 3.9 - 5.3 cm IVS Diastolic Thickness 1.5 cm 0.6 - 1.0 / 0.6 - 0.9 cm IVS Systolic Thickness 1.5 cm LVPW Diastolic Thickness 1.5 cm 0.6 - 1.0 / 0.6 - 0.9 cm LVPW Systolic Thickness 1.5 cm LVOT Diameter 2.0 cm LV Ejection Fraction 2D Teich 58.1 % LV Ejection Fraction MOD 4C 60.0 % LV Ejection Fraction MOD 2C 60.0 % LV Ejection Fraction 2C AL 59.4 % LA Diameter 3.4 cm LA Sys Volume AL 52.5 cm cubed LA Sys Volume Index AL 29.5 cm cubed/m squared Aorta at Sinotubular Diameter 2.3 cm IVC Diameter 1.6 cm M-MODE LA Ao Ratio MM 1.1 AV Cusp Separation MM 1.2 cm DOPPLER AV Peak Velocity 232.0 cm/s LVOT Peak Velocity 111.0 cm/s AV Area Cont Eq vti 1.8 cm squared AV Area Cont Eq pk 1.5 cm squared MV Peak Velocity 115.0 cm/s MV Area PHT 3.6 cm squared Mitral E to A Ratio 1.1 TR Peak Velocity 278.0 cm/s TR Peak Gradient 30.9 mmHg TV Peak E Velocity 84.0 cm/s Right Atrial Pressure 3.0 mmHg Pulmonary Artery Systolic Pressu 33.9 mmHg PV Peak Velocity 108.0 cm/s FINDINGS Left Ventricle Normal left ventricular size and systolic function, EF 59%.mild left ventricular hypertrophy. Abnormal septal motion consistent with conduction abnormality. Grade II/IV diastolic dysfunction, moderately elevated filling pressures. Right Ventricle The right ventricle is normal in size and function. Right Atrium The right atrium is normal in size. Left Atrium Mildly increased left atrial size. Mitral Valve Moderate mitral annular calcification. Aortic Valve Moderate aortic valve calcification. Features of aortic valve sclerosis Tricuspid Valve No gross abnormalities noted.trace tricuspid valve regurgitation. Estimated pulmonary artery peak systolic pressure 34 mmHg Pulmonic Valve No gross abnormalities noted Pericardium Normal pericardium without effusion. Aorta Normal ascending aorta dimension. IVC Normal inferior vena cava. CONCLUSIONS Normal left ventricular size and systolic function, EF 59%.mild left ventricular hypertrophy. Abnormal septal motion consistent with conduction abnormality. Grade II/IV diastolic dysfunction, moderately elevated filling pressures. Mildly increased left atrial size. Moderate mitral annular calcification. Moderate aortic valve calcification. Features of aortic valve sclerosis. Trace tricuspid valve regurgitation. Estimated pulmonary artery peak systolic pressure 34 mmHg. There is no pericardial effusion. There are no intracardiac masses. Compared to the study from 08/04/2023, there may not be a significant change Dr Abiola Stubbs MD [facility] (Electronically Signed) Final Date: 17 April 2024 21:01 S
--- NOTE | 2024-04-17 15:47 | PM.HP ---
Providers/Chief Complaint Admitting Physician: Emmanuel Mcmahon MD Primary Care Provider: Fred Treviño Chief Complaint: afib History of Present Illness Ev Chaves is a 73 year old female with a past medical history of COPD, active smoker, diastolic CHF, who presents to [facility] for A-fib with RVR. Patient tells me as she lives at the [facility] she has been doing well recently, really no significant complaints no falls no injuries, no chest pain, no shortness of breath, she does continue to smoke at the [facility], she has really no complaints, when the nurse practitioner this morning she tells me checked her vitals, her heart rates were elevated but she really did not feel it, so they were worried about her elevated heart rate so she was sent here to [facility] for evaluation, here she was found to have A-fib with RVR, placed on Cardizem drip, and subsequently converted to normal sinus rhythm in the emergency room, currently she is alert awake, following commands no facial droop no slurring words no focal weakness, no stroke like symptoms, no stroke history, [id number] score is 3, she was on the Cardizem drip, transition to p.o. Cardizem, she denies a history of GI bleeds, denies any bloody or black stools, no history of blood transfusions Review of Systems Const: Denies: fever(s) Card: Denies: chest pain Resp: Denies: dyspnea GI: Denies: abdominal pain Medications/Allergies Home Medications Medication Instructions Recorded Confirmed Last Taken Type acetaminophen 325 mg tablet 650 mg PO Q4H PRN Pain 02/16/23 04/17/24 Unknown History (Tylenol) aspirin 81 mg tablet,delayed 81 mg PO QAM 02/16/23 04/17/24 04/17/24 History release bisacodyl 5 mg tablet,delayed 20 mg PO DAILY PRN after mom for 02/16/23 04/17/24 Unknown History release (Dulcolax (bisacodyl)) no bm hydrocodone 5 mg-acetaminophen 325 1 tab PO Q4H PRN Pain 02/16/23 04/17/24 04/17/24 History mg tablet loratadine 10 mg tablet 10 mg PO QAM 02/16/23 04/17/24 04/17/24 History magnesium hydroxide 400 mg/5 mL See Rx Instructions .Route 02/16/23 04/17/24 Unknown History oral suspension (Milk of Magnesia) .COMPLEX PRN Constipation montelukast 10 mg tablet 10 mg PO BEDTIME 02/16/23 04/17/24 04/16/24 History ropinirole 0.5 mg tablet 0.5 mg PO BEDTIME 02/16/23 04/17/24 04/16/24 History sertraline 100 mg tablet 100 mg PO BEDTIME 02/16/23 04/17/24 04/16/24 History sertraline 50 mg tablet 75 mg PO BEDTIME 02/16/23 04/17/24 04/16/24 History simvastatin 40 mg tablet 40 mg PO BEDTIME 02/16/23 04/17/24 04/16/24 History aluminum-mag hydroxide-simethicone 30 ml PO .EVERY 2 HOURS PRN 08/04/23 04/17/24 Unknown History 200 mg-200 mg-20 mg/5 mL oral susp Indigestion gabapentin 300 mg capsule 300 mg PO BID 08/04/23 04/17/24 04/17/24 History hydrocodone 10 mg-acetaminophen 1 tab PO BID 08/04/23 04/17/24 Unknown History 325 mg tablet ondansetron 4 mg disintegrating 4 mg PO Q6H PRN Nausea And Vomiting 08/04/23 04/17/24 Unknown History tablet albuterol sulfate 90 mcg/actuation 2 puff inhalation Q6H PRN 08/06/23 04/17/24 02/16/23 Rx aerosol inhaler Shortness Of Breath Or Wheezing #6.7 grams albuterol sulfate 2.5 mg/3 mL 2.5 mg (3 mL) inhalation Q4H PRN 02/03/24 04/17/24 Unknown Rx (0.083 %) solution for nebulization shortness of breath or wheezing #90 mL bupropion HCl 200 mg tablet,12 hr 200 mg PO DAILY 02/03/24 04/17/24 04/17/24 History sustained-release carboxymethylcellulose sodium 1 % 1 drp ophthalmic (eye) BID 02/03/24 04/17/24 04/17/24 History eye liquid gel drops famotidine 20 mg tablet 20 mg PO BEDTIME 02/03/24 04/17/24 04/16/24 History pantoprazole 20 mg tablet,delayed 20 mg PO DAILY 02/03/24 04/17/24 04/17/24 History release vitamin A-vitamin C-vit E-min 1 tab PO DAILY 02/03/24 04/17/24 04/17/24 History tablet (Ocutabs tablet) albuterol 90 mcg-budesonide 80 2 inh inhalation Q6H PRN COPD 04/17/24 04/17/24 Unknown History mcg/actuation HFA aerosol inhaler (Airsupra) menthol 4 % topical gel (Biofreeze 1 applic topical DAILY PRN SORE 04/17/24 04/17/24 Unknown History (menthol)) JOINTS multivitamin with minerals 1 tab PO DAILY 04/17/24 04/17/24 04/17/24 History umeclidinium 62.5 mcg-vilanterol 1 inh inhalation DAILY 04/17/24 04/17/24 04/17/24 History 25 mcg/actuation powdr for inhalation (Anoro Ellipta) Allergies Allergy/AdvReac Type Severity Reaction Status Date / Time Penicillins Allergy Unknown Verified 02/03/24 10:48 tiotropium Allergy Unknown Verified 02/03/24 10:48 [From Spiriva with HandiHaler] PFSH Acute PFSH: Medical History Chronic kidney disease Nicotine dependence Non-STEMI (non-ST elevated myocardial infarction) Delirium Dementia Acute respiratory failure with hypoxia and hypercapnia Acute exacerbation of chronic obstructive airways disease COPD (chronic obstructive pulmonary disease) Social History Smoking and tobacco/nicotine status: current every day tobacco/nicotine user Vitals/I&O/Wt Last Vital Signs Temp 98.3 F 04/17/24 11:17 Pulse 64 04/17/24 14:55 Resp 17 04/17/24 14:55 BP 101/65 04/17/24 14:40 Pulse Ox 97 04/17/24 14:55 O2 Del Method Nasal Cannula 04/17/24 12:35 O2 Flow Rate 3 04/17/24 12:35 04/17/24 04/17/24 04/17/24 06:59 14:59 22:59 Intake Total 60.083 / 60.083 Balance 60.083 / 60.083 Weight last 48 hrs Weight 66.678 kg Physical Exam Const: COMMON NORMALS: no acute distress and patient oriented x3 HENMT: COMMON NORMALS: normocephalic HEAD & SCALP: normocephalic Eye: COMMON NORMALS: Equal, round and reactive pupils present Neck/C-Spine: COMMON NORMALS: no JVD Resp: COMMON NORMALS: normal respiratory effort, No retractions, No use of accessory muscles and clear to auscultation bilaterally AUSCULTATION: clear to auscultation bilaterally Cardio: COMMON NORMALS: no JVD, regular rate, regular rhythm, S1 normal heart sound present and S2 normal heart sound present RATE: regular rate RHYTHM: regular rhythm HEART SOUNDS: S1 normal heart sound present and S2 normal heart sound present GI: COMMON NORMALS: Normal to inspection, nondistended, normoactive bowel sounds present, Soft to palpation and non-tender Extremity: COMMON NORMALS: no calf tenderness and no pedal edema Neuro: COMMON NORMALS: patient oriented x3, CN's II-XII intact bilaterally and moves all extremities Psych: COMMON NORMALS: mental status grossly normal Data 04/17/24 11:14 04/17/24 12:06 A&P Assessment and plan (1) Atrial fibrillation with rapid ventricular response: Plan A-fib with RVR ? Currently converted to normal sinus rhythm, ? Continue Cardizem 30 every 6 hours ? Chads 2 Vasc is 3, discussed risk and benefits of anticoagulant therapy with patient, she voiced understanding, all questions answered agreed to proceed, start therapeutic Lovenox, switch to Eliquis on discharge ? Cardiac echo ? TSH?A1c ? Creatinine 1.2, monitor ? Iron studies ? Hemoccult stool Full code Lovenox for DVT prophylaxis Attestations Medical Necessity Statement*: Patient requires hospitalization, outpatient observation, for A-fib with RVR Diagnoses Atrial fibrillation with rapid ventricular response I48.91
[2024-04-17 16:42] LABS: Estmated Average Glucose 117; Hemoglobin A1C 5.7 % (4.0-6.0)
[2024-04-17] MEDS: enoxaparin 100 mg/mL Syringe 70 MG SUBCUT (17:02)
[2024-04-17] MEDS: pantoprazole 40 mg SDV IVP (17:02)
[2024-04-17] MEDS: gabapentin 300 mg Capsule PO (17:03)
--- NOTE | 2024-04-17 17:22 | ECG_ITS ---
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 Measurements Intervals [place] Rate: 72 P: -38 TN: 162 QRS: 5 QRSD: 87 T: 44 QT: 396 QTc: 434 Interpretive Statements SINUS RHYTHM Compared to ECG 04/17/2024 13:40:12 No significant change Electronically Signed On 04-18-2024 11:56:58 CDT by Clemente Castillo M.D. [id number]
[2024-04-17 17:24] LABS: Chol HDL Ratio 3.48 mg/dL (0.0-4.40); Cholesterol 160 mg/dL (0-200); Ferritin 22 ng/mL (15-150); HDL Cholesterol 46 mg/dL (60-100); Iron 47 ug/dL (37-145); LDL Cholesterol Calculated 85 mg/dL (50-129); LDL HDL Ratio 1.85 RATIO (0.00-3.22); Percent Saturation 15.1 % (20-50); Thyroid Stimulating Hormone 2.23 uIU/mL (0.27-4.20); Total Iron Binding Capacity 310 mcg/dl; Triglycerides 146 mg/dL (0-150); Unsaturated Iron Binding 263 ug/dL (112-347)
[2024-04-17 17:35] LABS: INR 0.98 (0.8-1.2)
[2024-04-17 17:58] LABS: Troponin 5 6HR 20.81 ng/L (0-10); Troponin 5 6HR Delta 3.81 ng/L (0-12)
[2024-04-17 19:27] LABS: Add Urine Microscopic? YES; Bilirubin Urine Neg (Negative); Blood Urine Neg (Negative); Glucose Urine UA Norm (Normal); Ketones Urine 1+ (Negative); Leukocyte Esterase Urine Negative (Negative); Nitrate Urine Positive (Negative); Protein Urine Neg (Negative); Urine Appearance Clear (CLEAR); Urine Color Yellow (Yellow); Urobilinogen Urine Norm (Negative); pH Urine 5 (5-7)
[2024-04-17 19:37] LABS: Add Urine Culture? No; Bacteria Urine 1+ /hpf; Mucus Urine TRACE /hpf; Squamous Epithelial Cell Urine RARE /hpf (0-5); Transitional Epi Cells Urine RARE /hpf; WBC Urine 0-4 /hpf (0-5)
[2024-04-17] MEDS: ropinirole 0.25 mg Tablet 0.5 MG PO (20:34)
[2024-04-17] MEDS: atorvastatin 40 mg Tablet PO (20:35)
[2024-04-17] MEDS: sertraline 100 mg Tablet PO (20:35)
[2024-04-18] VITALS (9 sets, daily range): BP systolic 107–150; BP diastolic 57–91; PULSE 72–79; RESP 14–25; TEMP 36.6–36.9; O2SAT 90–98
[2024-04-18] MEDS: dilTIAZem 30 mg Tablet PO ×2 (03:06→09:26)
[2024-04-18] MEDS: enoxaparin 100 mg/mL Syringe 70 MG SUBCUT (03:07)
[2024-04-18] MEDS: aspirin 81 mg EC Tablet PO (05:52)
[2024-04-18 07:10] LABS: Basophils # 0.1 10^3/uL (0.0-0.1); Basophils % 0.9 %; Eosinophils % 11.1 %; Hematocrit 34.6 % (36-47); Lymphocytes # 3.4 10^3/uL (0.8-4.8); Lymphocytes % 38.6 %; Mean Corpuscular HGB Conc 30.9 g/dL (30-55); Mean Corpuscular Hemoglobin 28.8 pg (27-33); Monocytes # 0.8 10^3/uL (0.2-0.9); Monocytes % 8.6 %; Neutrophils # 3.55 10^3/uL (1.8-7.7); Neutrophils % 40.5 %; Nucleated Red Blood Cells % 0 %; Platelet Count 270 10^3/cmm (157-399); Red Blood Count 3.72 10^6/uL (3.85-5.65); Red Cell Distribution Width 14.6 % (12.1-15.1)
[2024-04-18 07:19] LABS: Anion Gap 15.5 (5-19); Blood Urea Nitrogen 14 mg/dL (8-23); Calcium 9.3 mg/dL (8.5-10.5); Carbon Dioxide 29 mmol/L (22-29); Chloride 102 mmol/L (98-107); Creatinine Clr Calc Pharmacy 40.8062; Glucose 106 mg/dL (65-115); Osmolality Calculated 295 mOsm/kg (285-295); Potassium 4.5 mmol/L (3.5-5.1); Sodium 142 mmol/L (136-145)
[2024-04-18] MEDS: ciprofloxacin 500 mg Tablet 250 MG PO (09:26)
[2024-04-18] MEDS: gabapentin 300 mg Capsule PO (09:26)
[2024-04-18] MEDS: albuterol 2.5 mg/3 mL Neb INHALATION (09:34)
--- NOTE | 2024-04-18 10:45 | PC.NURSE ---
Called [facility] and gave update on pt and medications.
--- NOTE | 2024-04-18 11:21 | P.DS_ITS ---
Discharge Providers Date of Admission: 04/17/24 14:01 Date of Discharge: April 18, 2024 Attending Provider at Admission: Emmanuel Mcmahon MD Attending Provider at Discharge: Emmanuel Mcmahon MD Primary Care Provider: Fred Treviño Diagnoses at Discharge Discharge Diagnosis (1) Atrial fibrillation with rapid ventricular response: Status: Acute Reason for Visit Reason for Visit: afib Hospital Course Hospital Course Ev Chaves is a 73 year old female with a past medical history of COPD, active smoker, diastolic CHF, who presents to [facility] for A-fib with RVR. Patient tells me as she lives at the [place] [facility] she has been doing well recently, really no significant complaints no falls no injuries, no chest pain, no shortness of breath, she does continue to smoke at the [place] [facility], she has really no complaints, when the nurse practitioner this morning she tells me checked her vitals, her heart rates were elevated but she really did not feel it, so they were worried about her elevated heart rate so she was sent here to [facility] for evaluation, here she was found to have A-fib with RVR, placed on Cardizem drip, and subsequently converted to normal sinus rhythm in the emergency room, currently she is alert awake, following commands no facial droop no slurring words no focal weakness, no stroke like symptoms, no stroke history, [id number] score is 3, she was on the Cardizem drip, transition to p.o. Cardizem, she denies a history of GI bleeds, Patient was monitored as inpatient, on a Cardizem drip, she converted to normal sinus rhythm, will be discharged to half-way facility on Cardizem 120 mg daily In terms of anticoagulant therapy, her CHADS2 Vasc 4 was 3, she was initially managed on therapeutic Lovenox, her blood work does show early evidence of iron deficiency anemia, however during her hospitalization, she complained of bright red blood in her stool, thus anticoagulation was discontinued. Her hemoglobin remained stable, no significant hemodynamic compromise. On discharge her hemoglobin is 10.7. I will discharge her with a close follow-up with general surgery in 2 to 3 weeks to decide when to perform a EGD and colonoscopy. Then ultimately she can have a discussion with cardiology, and decide when to start anticoagulation therapy based upon findings. I did discuss with her that she has an increased risk of strokes, morbidity and mortality associated, given her bloody stool complaints, discussed risks and benefits of anticoagulant therapy, she voiced understanding, all questions answered, for now has declined until source of her bloody stools, and her anemia has been investigated. For now we will discharge on aspirin 81 mg daily which she should continue, nonetheless if she were to have any recurrent bloody or black stools, or hemodynamic compr omise, she should go to the emergency room. If she were to have any strokelike symptoms, please immediately call 911. She voiced understanding, all questions answered. For her urinary tract infection, discharged on ciprofloxacin. Physical Exam Const: COMMON NORMALS: no acute distress and patient oriented x3 Resp: COMMON NORMALS: normal respiratory effort, No retractions, No use of accessory muscles and clear to auscultation bilaterally AUSCULTATION: clear to auscultation bilaterally Cardio: COMMON NORMALS: regular rate, regular rhythm, S1 normal heart sound present and S2 normal heart sound present RATE: regular rate RHYTHM: regular rhythm HEART SOUNDS: S1 normal heart sound present and S2 normal heart sound present GI: COMMON NORMALS: Normal to inspection, nondistended, normoactive bowel sounds present and non-tender Extremity: COMMON NORMALS: no pedal edema Neuro: COMMON NORMALS: patient oriented x3 Psych: COMMON NORMALS: mental status grossly normal Discharge Data Studies Completed and Pending Completed Studies During Hospitalization Category Date Time Status XR chest 1V portable [id number] Stat Exams 04/17/24 11:32 Completed CV. echo complete* [id number] Routine Ultrasound 04/17/24 15:40 Completed Pending at discharge Category Date Time Status Occult Blood Stool [Immunochemical Fecal OCB] Routine Lab 04/17/24 15:50 Uncollected Radiology Impressions Chest X-Ray 04/17/24 11:32 IMPRESSION: No acute findings. Laboratory Results WBC 8.80 10^3/uL (3.29-11.43) 04/18/24 06:58 RBC 3.72 10^6/uL (3.85-5.65) L 04/18/24 06:58 Hgb 10.70 g/dL (11.27-16.99) L 04/18/24 06:58 Hct 34.6 % (36-47) L 04/18/24 06:58 MCV 93.0 fl (85-98) 04/18/24 06:58 MCH 28.8 pg (27-33) 04/18/24 06:58 MCHC 30.9 g/dL (30-55) 04/18/24 06:58 RDW 14.6 % (12.1-15.1) 04/18/24 06:58 Plt Count 270 10^3/cmm (157-399) 04/18/24 06:58 MPV 9.0 fL (7.4-10.4) 04/18/24 06:58 Neut % (Auto) 40.5 % 04/18/24 06:58 Lymph % (Auto) 38.6 % 04/18/24 06:58 [place] % (Auto) 8.6 % 04/18/24 06:58 Eos % (Auto) 11.1 % 04/18/24 06:58 Baso % (Auto) 0.9 % 04/18/24 06:58 Neut # (Auto) 3.55 10^3/uL (1.8-7.7) 04/18/24 06:58 Lymph # (Auto) 3.4 10^3/uL (0.8-4.8) 04/18/24 06:58 [place] # (Auto) 0.8 10^3/uL (0.2-0.9) 04/18/24 06:58 Eos # (Auto) 1.0 10^3/uL (0.0-0.8) H 04/18/24 06:58 Baso # (Auto) 0.1 10^3/uL (0.0-0.1) 04/18/24 06:58 Nucleated RBC % (auto) 0 % 04/18/24 06:58 Nucleated RBCs # 0.0 /100WBC 04/18/24 06:58 PT 13.30 SECONDS (12.1-14.9) 04/17/24 16:40 INR 0.98 (0.8-1.2) 04/17/24 16:40 D-Dimer 0.58 ug/mLFEU (0-0.59) 04/17/24 12:06 Sodium 142 mmol/L (136-145) 04/18/24 06:58 Potassium 4.5 mmol/L (3.5-5.1) 04/18/24 06:58 Chloride 102 mmol/L (98-107) 04/18/24 06:58 Carbon Dioxide 29 mmol/L (22-29) 04/18/24 06:58 Anion Gap 15.5 (5-19) 04/18/24 06:58 BUN 14 mg/dL (8-23) 04/18/24 06:58 Creatinine 1.2 mg/dL (0.5-0.9) H 04/18/24 06:58 GFR Calculation Not Reportable 04/18/24 06:58 Glucose 106 mg/dL (65-115) 04/18/24 06:58 Estimat Average Glucose 117 04/17/24 11:14 Hemoglobin A1c 5.7 % (4.0-6.0) 04/17/24 11:14 Calculated Osmolality 295 mOsm/kg (285-295) 04/18/24 06:58 Calcium 9.3 mg/dL (8.5-10.5) 04/18/24 06:58 Magnesium 2.0 mg/dL (1.7-2.3) 04/17/24 12:06 Iron 47 ug/dL (37-145) 04/17/24 12:06 TIBC 310 mcg/dl 04/17/24 12:06 % Saturation 15.1 % (20-50) L 04/17/24 12:06 Unsat Iron Binding 263 ug/dL (112-347) 04/17/24 12:06 Ferritin 22 ng/mL (15-150) 04/17/24 12:06 Total Bilirubin 0.2 mg/dL (0.15-1.2) 04/17/24 12:06 AST 15 U/L (0-32) 04/17/24 12:06 ALT 9 U/L (0-33) 04/17/24 12:06 Alkaline Phosphatase 120 U/L (35-105) H 04/17/24 12:06 Troponin T Baseline 17 ng/L (0-10) H 04/17/24 12:06 Troponin T 120 Minute 16.89 ng/L (0-10) H 04/17/24 12:54 Delta Troponin T -0.11 ABS# (0-10) L 04/17/24 12:54 Troponin T Hi Sens 6Hr 20.81 ng/L (0-10) H 04/17/24 17:29 Troponin T Hi Sens 6Hr Delta 3.81 ng/L (0-12) 04/17/24 17:29 NT-Pro-B Natriuret Pep 216 pg/mL (0-450) 04/17/24 12:06 Total Protein 7.1 g/dL (6.6-8.7) 04/17/24 12:06 Albumin 3.7 g/dL (3.5-5.2) 04/17/24 12:06 Globulin 3.4 g/dL (1.3-4.6) 04/17/24 12:06 Triglycerides 146 mg/dL (0-150) 04/17/24 12:06 Cholesterol 160 mg/dL (0-200) 04/17/24 12:06 LDL Cholesterol, Calc 85 mg/dL (50-129) 04/17/24 12:06 HDL Cholesterol 46 mg/dL (60-100) L 04/17/24 12:06 LDL/HDL Ratio 1.85 RATIO (0.00-3.22) 04/17/24 12:06 Cholesterol/HDL Ratio 3.48 mg/dL (0.0-4.40) 04/17/24 12:06 TSH 2.21 uIU/mL (0.27-4.20) 04/17/24 12:06 TSH 2.23 uIU/mL (0.27-4.20) 04/17/24 12:06 Urine Color Yellow (Yellow) 04/17/24 19:01 Urine Appearance Clear (CLEAR) 04/17/24 19:01 Urine pH 5 (5-7) 04/17/24 19:01 Ur Specific [place] 1.010 (1.005-1.030) 04/17/24 19:01 Urine Protein Neg (Negative) 04/17/24 19:01 Urine Glucose (UA) Norm (Normal) 04/17/24 19:01 Urine Ketones 1+ (Negative) H 04/17/24 19: Urine Blood Neg (Negative) 04/17/24 19: Urine Nitrate Positive (Negative) A 04/17/24 19: Urine Bilirubin Neg (Negative) 04/17/24 19:01 Urine Urobilinogen Norm mg/dL (Negative) 04/17/24 19: Ur Leukocyte Esterase Negative (Negative) 04/17/24 19:01 Urine RBC None /hpf (0-2) 04/17/24 19:01 Urine WBC 0-4 /hpf (0-5) H 04/17/24 19:01 Ur Squamous Epith Cells Rare /hpf (0-5) 04/17/24 19:01 Ur Transition Epith Cell Rare /hpf 04/17/24 19:01 Amorphous Sediment Not Reportable 04/17/24 19:01 Urine Bacteria 1+ /hpf (NONE) H 04/17/24 19:01 Urine Mucus Trace /hpf 04/17/24 19:01 Vitals Last Vital Signs Temp 98.4 F 04/18/24 08:00 Pulse 74 04/18/24 09:41 Resp 17 04/18/24 09:35 BP 150/91 04/18/24 08:00 Pulse Ox 98 04/18/24 09:35 O2 Del Method Nasal Cannula 04/18/24 09:35 O2 Flow Rate 3 04/18/24 09:35 Discharge Plan Discharge Patient Disposition: Home Condition: Stable Prescriptions: New ciprofloxacin HCl 500 mg Tablet 250 mg PO BID@0900,2100 5 Days Qty: 5 0RF pantoprazole [Protonix] 40 mg tablet,delayed release (DR/EC) 40 mg PO BID 30 Days Qty: 60 0RF sucralfate [Carafate] 100 mg/mL suspension 1 g PO BID 30 Days Qty: 600 0RF diltiazem HCl [Cardizem LA] 120 mg tablet extended release 24 hr 120 mg PO DAILY 30 Days Qty: 30 0RF atorvastatin 40 mg Tablet 40 mg PO BEDTIME 30 Days Qty: 30 0RF Continued hydrocodone-acetaminophen 10-325 mg tablet 1 tab PO BID gabapentin 300 mg capsule 300 mg PO BID alum-mag hydroxide-simeth 200-200-20 mg/5 mL Suspension 30 ml PO .EVERY 2 HOURS PRN (Reason: Indigestion) ondansetron 4 mg Tablet,Disintegrating 4 mg PO Q6H PRN (Reason: Nausea And Vomiting) albuterol sulfate 90 mcg/actuation HFA aerosol inhaler 2 puff INHALATION Q6H PRN (Reason: Shortness Of Breath Or Wheezing) Qty: 6.7 2RF famotidine 20 mg Tablet 20 mg PO BEDTIME carboxymethylcellulose sodium 1 % Drops, Liquid Gel 1 drp OPHTHALMIC (EYE) BID Ocutabs Tablet 1 tab PO DAILY bupropion HCl 200 mg tablet sustained-release 12 hr 200 mg PO DAILY albuterol sulfate 2.5 mg /3 mL (0.083 %) solution for nebulization 2.5 mg INHALATION Q4H PRN (Reason: shortness of breath or wheezing) Qty: 90 0RF multivitamin with minerals Tablet 1 tab PO DAILY Biofreeze (menthol) 4 % Gel 1 applic TOPICAL DAILY PRN (Reason: SORE JOINTS) Anoro Ellipta 62.5-25 mcg/actuation blister with device 1 inh INHALATION DAILY Airsupra 90-80 mcg/actuation HFA aerosol inhaler 2 inh INHALATION Q6H PRN (Reason: COPD) acetaminophen [Tylenol] 325 mg Tablet 650 mg PO Q4H PRN (Reason: Pain) hydrocodone-acetaminophen 5-325 mg tablet 1 tab PO Q4H PRN (Reason: Pain) aspirin 81 mg Tablet,Delayed Release (Dr/Ec) 81 mg PO QAM magnesium hydroxide [Milk of Magnesia] 400 mg/5 mL Suspension See Rx Instructions .ROUTE .COMPLEX PRN (Reason: Constipation) Rx Instructions: 30 mL po every 3rd day as needed for no bm ropinirole 0.5 mg tablet 0.5 mg PO BEDTIME montelukast 10 mg tablet 10 mg PO BEDTIME bisacodyl [Dulcolax (bisacodyl)] 5 mg Tablet,Delayed Release (Dr/Ec) 20 mg PO DAILY PRN (Reason: after mom for no bm) sertraline 50 mg tablet 75 mg PO BEDTIME loratadine 10 mg Tablet 10 mg PO QAM sertraline 100 mg tablet 100 mg PO BEDTIME Discontinued pantoprazole 20 mg tablet,delayed release (DR/EC) 20 mg PO DAILY simvastatin 40 mg tablet 40 mg PO BEDTIME Discharge Orders: Discharge Order (Routine); Ordered 04/18/24 Ordered By: Emmanuel Mcmahon Referrals: Fred Treviño [Primary Care Provider] - Palomo Garcia DO [Physician] - 2 weeks (EGD and colonoscopy) Linden Christine M.D [Physician] - 1 week Discharge Diet: Cardiac Discharge Activity: Resume usual activity Patient Instructions: Ciprofloxacin (By mouth) (Cipro), Diltiazem (By mouth) (Cardizem, Cardizem CD, Cardizem LA, Cardizem SR), Sucralfate (By mouth) (Carafate), Atorvastatin (By mouth) (Lipitor, Atorvaliq), Pantoprazole (By mouth) (Protonix), Opioid Safety Activity Restrictions/Additional Instructions: - Please take Cardizem as prescribed ? Please follow-up with cardiology 1 week ? If you develop any strokelike symptoms please call 911 ? Follow-up with general surgery for EGD and and colonoscopy in 2 to 3 weeks ? Decision was made if to resume anticoagulant therapy will be based upon discussion with you and cardiology after your EGD and colonoscopy Discharge Attestations Time Spent in Discharge Care*: greater than 30 min Quality Metrics Clinical Quality Measures [ No reported AMI, CVA or VTE this stay] Coding Level of Care Code 65406 Total time (in minutes) for Discharge: 45 Diagnoses Atrial fibrillation with rapid ventricular response I48.91
--- NOTE | 2024-04-18 11:24 | PC.CHAP ---
Pastoral Care Encounter/Spiritual Assessment Type of Contact [] Declined organizational effectiveness consultant visit [] Patient/Family/Request visit [] Outpatient visit [] Follow-up visit [] Physician referral [] Code/Alert [x] Routine visit [] Staff referral [] Actively dying [] Patient sleeping [] Family support [] [] Out of room [] Palliative care [] [] Receiving care in room [] Pre-surgical visit [] Trauma [] Long length of stay [] ICU visit [] Other: Relational/Emotional Strength [x] Patient feels connected with others/family/visitors/staff [] Distress [] Loneliness/isolation [] Abandonment Spirituality of Patient [] Person of Ami [] Attends Bahai of their Ami [] Believes in Prayer [] Reads Bible or Shinto materials [x] There are Spiritual issues to be addressed Province Archivist Interventions [] Prayer [x] Active listening [x] Non-anxious presence [] Spiritual/emotional support [] Crisis/trauma care [] Spiritual counseling [] Bereavement support [] Provided bereavement packet [] Provided Bible/devotional materials [] Provided toy/stuffed animal, coloring book to patient or family member [] Provided Communion [] Anointing/[place] [] Salvation [] Completed spiritual assessment [x] Other: No prayer Impact on Illness or Injury [] Angry [] Fearful [X] Anxious [] Often cries [] Exhaustion [] Unable to work [] Unable to attend yarsanism [] Unable to walk/stand [] Unable to read [] Unable to drive [] Unable to eat/drink [] Unable to sleep [] Unable to be with family [] Patient intubated [] Other: Summary Does her own prayers. Time spent with patient 5 Min
--- NOTE | 2024-04-18 11:56 | PC.NURSE ---
Report called and given to Ted Smith LPN at [facility], [place].
--- NOTE | 2024-04-18 12:33 | PC.NURSE ---
Discharge Note Patient discharged to [[facility]] via [w/c to transportation vehicle] accompanied by [Ready motor pool driver]. Discharge instructions reviewed with patient and/or premium service representative. Mobile pharmacy medications and/or prescriptions provided. Belongings/home medications returned.
== END 2024-04-18 12:38 | disposition skilled nursing facility (03) ==
LOC: ER 11:41 → CSU 20:41
PROVIDERS: Admitting Provider Family Medicine; Emergency Provider Emergency Medicine; PCP Student in an Organized Health Care Education/Training Program; Visit Provider Family Medicine
DX: I48.91 Unspecified atrial fibrillation (principal); J44.9 Chronic obstructive pulmonary disease, unspecified; F17.200 Nicotine dependence, unspecified, uncomplicated; I50.30 Unspecified diastolic (congestive) heart failure; N18.9 Chronic kidney disease, unspecified; Z79.82 Long term (current) use of aspirin; Z99.81 Dependence on supplemental oxygen; I25.2 Old myocardial infarction; F03.90 Unspecified dementia, unspecified severity, without behavioral disturbance, psychotic disturbance, mood disturbance, and anxiety
CPT/HCPCS: 36415; 71045; 80048; 80053; 80061; 81001; 81015; 82728; 83036; 83540; 83550; 83735; 83880; 84443; 84484; 85025; 85378; 85610; 93005; 93306; 94640; 96365; 96372; 96375; 96376; 99285; C9113; G0378; J0612; J1650; J3475; J3490; J7030; J7613

== ENCOUNTER → 2024-05-19 13:47 | Outpatient (BNVA) | payer MEDICARE, MEDICAID, SELFPAY | PROVIDERS: PCP Student in an Organized Health Care Education/Training Program; Visit Provider Surgery | DX: K92.2 Gastrointestinal hemorrhage, unspecified (principal); D50.9 Iron deficiency anemia, unspecified; I48.91 Unspecified atrial fibrillation | CPT/HCPCS: 99204 ==

== ENCOUNTER 2024-07-02 06:55 | Day surgery (SDC) | payer MEDICARE, MEDICAID, SELFPAY ==
[2024-07-02 07:16] VITALS: BP 120/90; PULSE 84; RESP 20; TEMP 36.1; O2SAT 94; BMI 21.4
[2024-07-02] MEDS: sodium chloride 0.9% 1,000 ML 30 ML IV (07:28)
--- NOTE | 2024-07-02 07:38 | ANES.PREANE2 ---
Pre-Anesthetic Assessment Height/Weight: Height 1.7 m Weight 62.142 kg Temp Pulse Resp BP Pulse Ox O2 Del Method O2 Flow Rate 97.0 F L 84 20 H 120/90 94 Nasal Cannula 3 07/02/24 07:16 07/02/24 07:16 07/02/24 07:16 07/02/24 07:16 07/02/24 07:16 07/02/24 07:16 07/02/24 07:16 Preop Diagnosis: anemia, GI bleed Operation Date: 07/02/24 07:30 Proposed Procedures p EGD - 80458 , 72359, G0105 , D50.9 , K92.2(Not Applicable) - Palomo Garcia DO s Colonoscopy(Not Applicable) - Palomo Garcia DO Was Beta Arie taken within 24 hours: N/A Was Clonidine taken within 24 hours: N/A Last intake: Intake Last Liquid Date 07/01/24 Last Liquid Time 20:00 Last Solid Date 07/01/24 Last Solid Time 07:00 Social Tobacco Exam alert, oriented x 3, clear to auscultation bilaterally and regular rate & rhythm Chart states hx of dementia Airway Submandibular: within normal limits Cervical ROM: within normal limits Mallampati: Class II Dentition: full History/ROS No significant history except as noted and No significant complaints Pulmonary Chronic Obstructive Pulmonary Disease, Cough, Exertional Dyspnea and Shortness of Breath CV/HEM Atrial Fibrillation, Arrythmia, Coronary Artery Disease and Myocardial Infarction Recent Afib with RVR None reported Hepatic None reported GI Gastroesophageal Reflux Disease Metabolic None reported Musc/skel Osteoarthritis/DJD Neuropsych Dementia Anesthetic Plan ASA status: 4 Anesthesia: Anesthesia Evaluation and MAC Risk of > 500 ml blood loss (7ml/kg in children): No Medications/Allergies Home Medications Medication Instructions Recorded Confirmed Last Taken Type aspirin 81 mg tablet,delayed 81 mg PO QAM 02/16/23 07/02/24 06/30/24 History release bisacodyl 5 mg tablet,delayed 20 mg PO DAILY PRN after mom for 02/16/23 07/02/24 Unknown History release (Dulcolax (bisacodyl)) no bm loratadine 10 mg tablet 10 mg PO QAM 02/16/23 07/02/24 07/01/24 History magnesium hydroxide 400 mg/5 mL See Rx Instructions .Route 02/16/23 07/02/24 Unknown History oral suspension (Milk of Magnesia) .COMPLEX PRN Constipation montelukast 10 mg tablet 10 mg PO BEDTIME 02/16/23 07/02/24 07/01/24 History ropinirole 0.5 mg tablet 0.5 mg PO BEDTIME 02/16/23 07/02/24 07/01/24 History sertraline 100 mg tablet 100 mg PO BEDTIME 02/16/23 07/02/24 07/01/24 History sertraline 50 mg tablet 75 mg PO BEDTIME 02/16/23 07/02/24 07/01/24 History gabapentin 300 mg capsule 300 mg PO TID 08/04/23 07/02/24 07/01/24 History hydrocodone 10 mg-acetaminophen 1 tab PO BID 08/04/23 07/02/24 07/01/24 History 325 mg tablet ondansetron 4 mg disintegrating 4 mg PO Q6H PRN Nausea And Vomiting 08/04/23 07/02/24 Unknown History tablet albuterol sulfate 2.5 mg/3 mL 2.5 mg (3 mL) inhalation Q4H PRN 02/03/24 07/02/24 Unknown Rx (0.083 %) solution for nebulization shortness of breath or wheezing #90 mL bupropion HCl 200 mg tablet,12 hr 200 mg PO DAILY 02/03/24 07/02/24 07/01/24 History sustained-release (Wellbutrin SR) famotidine 20 mg tablet 20 mg PO DAILY 02/03/24 07/02/24 07/01/24 History vitamin A-vitamin C-vit E-min 1 tab PO DAILY 02/03/24 07/02/24 07/01/24 History tablet (Ocutabs tablet) albuterol 90 mcg-budesonide 80 2 inh inhalation Q6H PRN COPD 04/17/24 07/02/24 Unknown History mcg/actuation HFA aerosol inhaler (Airsupra) menthol 4 % topical gel (Biofreeze 1 applic topical DAILY PRN SORE 04/17/24 07/02/24 Unknown History (menthol)) JOINTS multivitamin with minerals 1 tab PO DAILY 04/17/24 07/02/24 07/01/24 History sucralfate 100 mg/mL oral 10 ml PO BID 0807/02/24 07/01/24 History suspension atorvastatin 40 mg tablet 40 mg PO DAILY 06/30/24 07/02/24 07/01/24 History carboxymethylcellulose sodium 1 drp ophthalmic (eye) BID 06/30/24 07/02/24 07/01/24 History (Refresh Contacts eye drops) diltiazem HCl 120 mg 120 mg PO DAILY 06/30/24 07/02/24 07/01/24 History tablet,extended release 24 hr fluticasone fur. 100 mcg-umeclid 1 inh inhalation DAILY 06/30/24 07/02/24 07/01/24 History 62.5 mcg-vilant 25 mcg inhalat.powder (Trelegy Ellipta) magnesium citrate 300 ml PO BID PRN constipation 06/30/24 07/02/24 Unknown History pantoprazole 40 mg tablet,delayed 40 mg PO BID 06/30/24 07/02/24 07/01/24 History release Allergies Allergy/AdvReac Type Severity Reaction Status Date / Time Penicillins Allergy Unknown Verified 07/02/24 07:12 tiotropium Allergy Unknown Verified 07/02/24 07:12 [From Spiriva with HandiHaler] Current Medications Generic Name Dose Route Start Last Admin Trade Name Freq PRN Reason Stop Dose Admin Sodium Chloride 1,000 mls @ 30 mls/hr 07/02/24 07:15 07/02/24 07:28 Sodium Chloride 0.9% IV 07/03/24 07:14 30 mls/hr .Q24H MAGDALENA Administration PFSH Anesthesia Medical History Chronic kidney disease Nicotine dependence Non-STEMI (non-ST elevated myocardial infarction) Delirium Dementia Acute respiratory failure with hypoxia and hypercapnia Acute exacerbation of chronic obstructive airways disease COPD (chronic obstructive pulmonary disease) Social History Smoking and tobacco/nicotine status: never used tobacco/nicotine Data Anesthesia Cardiac Studies: Echocardiogram 04/17/24 Sestamibi Stress Test (Cardiology) 08/05/23
--- NOTE | 2024-07-02 07:56 | PM.HP ---
Providers/Chief Complaint Primary Care Provider: Fred Treviño Chief Complaint: D50.9 History of Present Illness Ev Chaves is a 73 year old female Review of Systems General: Reports: 10 or more systems reviewed and unremarkable except in HPI and below Medications/Allergies Home Medications Medication Instructions Recorded Confirmed Last Taken Type aspirin 81 mg tablet,delayed 81 mg PO QAM 02/16/23 07/02/24 06/30/24 History release bisacodyl 5 mg tablet,delayed 20 mg PO DAILY PRN after mom for 02/16/23 07/02/24 Unknown History release (Dulcolax (bisacodyl)) no bm loratadine 10 mg tablet 10 mg PO QAM 02/16/23 07/02/24 07/01/24 History magnesium hydroxide 400 mg/5 mL See Rx Instructions .Route 02/16/23 07/02/24 Unknown History oral suspension (Milk of Magnesia) .COMPLEX PRN Constipation montelukast 10 mg tablet 10 mg PO BEDTIME 02/16/23 07/02/24 07/01/24 History ropinirole 0.5 mg tablet 0.5 mg PO BEDTIME 02/16/23 07/02/24 07/01/24 History sertraline 100 mg tablet 100 mg PO BEDTIME 02/16/23 07/02/24 07/01/24 History sertraline 50 mg tablet 75 mg PO BEDTIME 02/16/23 07/02/24 07/01/24 History gabapentin 300 mg capsule 300 mg PO TID 08/04/23 07/02/24 07/01/24 History hydrocodone 10 mg-acetaminophen 1 tab PO BID 08/04/23 07/02/24 07/01/24 History 325 mg tablet ondansetron 4 mg disintegrating 4 mg PO Q6H PRN Nausea And Vomiting 08/04/23 07/02/24 Unknown History tablet albuterol sulfate 2.5 mg/3 mL 2.5 mg (3 mL) inhalation Q4H PRN 02/03/24 07/02/24 Unknown Rx (0.083 %) solution for nebulization shortness of breath or wheezing #90 mL bupropion HCl 200 mg tablet,12 hr 200 mg PO DAILY 02/03/24 07/02/24 07/01/24 History sustained-release (Wellbutrin SR) famotidine 20 mg tablet 20 mg PO DAILY 02/03/24 07/02/24 07/01/24 History vitamin A-vitamin C-vit E-min 1 tab PO DAILY 02/03/24 07/02/24 07/01/24 History tablet (Ocutabs tablet) albuterol 90 mcg-budesonide 80 2 inh inhalation Q6H PRN COPD 04/17/24 07/02/24 Unknown History mcg/actuation HFA aerosol inhaler (Airsupra) menthol 4 % topical gel (Biofreeze 1 applic topical DAILY PRN SORE 04/17/24 07/02/24 Unknown History (menthol)) JOINTS multivitamin with minerals 1 tab PO DAILY 04/17/24 07/02/24 07/01/24 History sucralfate 100 mg/mL oral 10 ml PO BID 05/19/24 07/02/24 07/01/24 History suspension atorvastatin 40 mg tablet 40 mg PO DAILY 06/30/24 07/02/24 07/01/24 History carboxymethylcellulose sodium 1 drp ophthalmic (eye) BID 06/30/24 07/02/24 07/01/24 History (Refresh Contacts eye drops) diltiazem HCl 120 mg 120 mg PO DAILY 06/30/24 07/02/24 07/01/24 History tablet,extended release 24 hr fluticasone fur. 100 mcg-umeclid 1 inh inhalation DAILY 06/30/24 07/02/24 07/01/24 History 62.5 mcg-vilant 25 mcg inhalat.powder (Trelegy Ellipta) magnesium citrate 300 ml PO BID PRN constipation 06/30/24 07/02/24 Unknown History pantoprazole 40 mg tablet,delayed 40 mg PO BID 06/30/24 07/02/24 07/01/24 History release Allergies Allergy/AdvReac Type Severity Reaction Status Date / Time Penicillins Allergy Unknown Verified 07/02/24 07:12 tiotropium Allergy Unknown Verified 07/02/24 07:12 [From Spiriva with HandiHaler] PFSH Acute PFSH: Medical History Chronic kidney disease Nicotine dependence Non-STEMI (non-ST elevated myocardial infarction) Delirium Dementia Acute respiratory failure with hypoxia and hypercapnia Acute exacerbation of chronic obstructive airways disease COPD (chronic obstructive pulmonary disease) Social History Smoking and tobacco/nicotine status: never used tobacco/nicotine Vitals/I&O/Wt Last Vital Signs Temp 97.0 F L 07/02/24 07:16 Pulse 84 07/02/24 07:16 Resp 20 H 07/02/24 07:16 BP 120/90 07/02/24 07:16 Pulse Ox 94 07/02/24 07:16 O2 Del Method Nasal Cannula 07/02/24 07:16 O2 Flow Rate 3 07/02/24 07:16 Weight last 48 hrs Weight 137 lb A&P Assessment and plan (1) GI bleed: (2) Iron deficiency anemia: Plan EGD and colonoscopy Attestations Medical Necessity Statement*: Home Coding Level of Care Code Acute Code for Chg Fwd Diagnoses GI bleed K92.2 Iron deficiency anemia D50.9
[2024-07-02 08:19] VITALS: BP 95/67; PULSE 88; RESP 16; TEMP 36.2; O2SAT 96
[2024-07-02 08:31] VITALS: BP 106/68; PULSE 84; RESP 16; O2SAT 99
--- NOTE | 2024-07-02 09:00 | ANE.PACU2 ---
Inpatient post-anesthesia follow up: Airway intact: Yes Vital signs: Temperature 97.1 F Pulse Rate 84 Respiratory Rate 16 Blood Pressure 106/68 Pulse Oximetry 99 Oxygen Delivery Me thod Nasal Cannula Oxygen Flow Rate 3 Fraction of Inspir ed Oxygen Hydration adequate: Yes Nausea and vomiting: No Pain level: 1 Mental status: Baseline
== END 2024-07-02 09:00 | disposition home or self-care (01) ==
PROVIDERS: PCP Student in an Organized Health Care Education/Training Program; Visit Provider Surgery
PROC: 0DJ08ZZ Inspection of Upper Intestinal Tract, Via Natural or Artificial Opening Endoscopic (ICD-10-PCS; CPT 43235; principal; 2024-07-02 07:30)
PROC: 0DJD8ZZ Inspection of Lower Intestinal Tract, Via Natural or Artificial Opening Endoscopic (ICD-10-PCS; CPT 45378; 2024-07-02 07:30)
DX: K92.2 Gastrointestinal hemorrhage, unspecified (principal); D50.9 Iron deficiency anemia, unspecified; Z79.82 Long term (current) use of aspirin; N18.9 Chronic kidney disease, unspecified; I25.2 Old myocardial infarction; F03.90 Unspecified dementia, unspecified severity, without behavioral disturbance, psychotic disturbance, mood disturbance, and anxiety; J44.9 Chronic obstructive pulmonary disease, unspecified
CPT/HCPCS: 43239; 45378; 88305; G0121; J2704; J7030

== ENCOUNTER → 2024-10-20 14:27 | Outpatient (BNVA) | payer MEDICARE, MEDICAID, SELFPAY | PROVIDERS: PCP Student in an Organized Health Care Education/Training Program; Visit Provider Internal Medicine Cardiovascular Disease | DX: R07.9 Chest pain, unspecified (principal) | CPT/HCPCS: 93005 ==

== ENCOUNTER 2025-01-25 01:03 | Emergency (ER) | payer MEDICARE, MEDICAID, SELFPAY ==
--- NOTE | 2025-01-25 01:07 | CTR_ITS ---
PROCEDURE INFORMATION: Exam: CT Head Without Contrast Exam date and time: 01/25/2025 1:11 AM Age: 74 years old Clinical indication: Injury or trauma; Blunt trauma (contusions or hematomas); EMS arrival from shelter for unwitnessed fall. Patient found down on floor by staff. Small hematoma to frontal. Patient endorses left hip pain. History of dementia. TECHNIQUE: Imaging protocol: Computed tomography of the head without contrast. Radiation optimization: All CT scans at this facility use at least one of these dose optimization techniques: automated exposure control; mA and/or kV adjustment per patient size (includes targeted exams where dose is matched to clinical indication); or iterative reconstruction. COMPARISON: No relevant prior studies available. RADIATION DOSE METRICS: Total DLP (mGy-cm): 818.34 FINDINGS: Brain: There is mild cerebral atrophy. There are mild deep white matter microangiopathic ischemic changes. No acute hemorrhage is identified. No mass or mass effect is identified. Cerebral ventricles: The ventricles are prominent secondary to atrophy. Paranasal sinuses: The paranasal sinuses are otherwise clear. Mastoid air cells: The mastoid air cells are clear. Bones: No acute osseous abnormalities are seen. Soft tissues: Left frontal scalp soft tissue swelling. Moderate right frontal sinus mucosal disease. Moderate right anterior ethmoidal mucosal disease. CT/CT head wo con* [id number] IMPRESSION: No acute intracranial pathology.
--- NOTE | 2025-01-25 01:07 | CTR_ITS ---
PROCEDURE INFORMATION: Exam: CT Cervical Spine Without Contrast Exam date and time: 01/25/2025 1:13 AM Age: 74 years old Clinical indication: Injury or trauma; Blunt trauma; EMS arrival from [facility] for unwitnessed fall. Patient found down on floor by staff. Small hematoma to frontal. Patient endorses left hip pain. History of dementia. TECHNIQUE: Imaging protocol: Computed tomography of the cervical spine without contrast. Radiation optimization: All CT scans at this facility use at least one of these dose optimization techniques: automated exposure control; mA and/or kV adjustment per patient size (includes targeted exams where dose is matched to clinical indication); or iterative reconstruction. COMPARISON: CT head wo con* [id number] 01/25/2025 1:11 AM RADIATION DOSE METRICS: Total DLP (mGy-cm): 314.37 FINDINGS: Bones: Straightening and slight reversal of the normal cervical lordosis. Multilevel listhesis, likely degenerative in nature. No evidence of acute fracture. [id number] multilevel degenerative change. Salivary glands: Mild nonspecific asymmetric enlargement left submandibular gland. Lungs: Lung apices are normal. Soft tissues: Unremarkable. CT/CT cervical spin wo con* [id number] IMPRESSION: No evidence of acute fracture.
--- NOTE | 2025-01-25 01:07 | CTR_ITS ---
PROCEDURE INFORMATION: Exam: CT Left Lower Extremity Without Contrast, Hip Exam date and time: 01/25/2025 1:16 AM Age: 74 years old Clinical indication: Injury or trauma; Blunt trauma; EMS arrival from [facility] for unwitnessed fall. Patient found down on floor by staff. Small hematoma to frontal. Patient endorses left hip pain. History of dementia. TECHNIQUE: Imaging protocol: CT of the left lower extremity without contrast was performed. Exam focused on the hip. Radiation optimization: All CT scans at this facility use at least one of these dose optimization techniques: automated exposure control; mA and/or kV adjustment per patient size (includes targeted exams where dose is matched to clinical indication); or iterative reconstruction. COMPARISON: No relevant prior studies available. RADIATION DOSE METRICS: Total DLP (mGy-cm): 478.65 FINDINGS: Bones/joints: Mild contusion in the subcutaneous fat over the left hip left posterolateral proximal thigh. Soft tissues: Normal. CT/CT hip LT wo con* [id number] IMPRESSION: 1. Mild contusion in the subcutaneous fat over the left hip left posterolateral proximal thigh. 2. No obvious fracture or dislocation.
--- NOTE | 2025-01-25 01:07 | W.ED.HEATRA ---
HPI - Head Injury General: Chief complaint: Fall Stated complaint: FALL Time Seen by Provider: 01/25/25 01:05 Source: patient and EMS Mode of arrival: EMS Limitations: no limitations History of Present Illness: 74-year-old female who is here from [facility] after fall in the bathroom. Patient did hit her head she complains of some left hip pain along with head neck pain denies any other injuries. Associated symptoms: Reports neck pain; Deny nausea or vomiting Related Data Home Medications ?Medication ?Instructions ?Recorded ?Confirmed aspirin 81 mg tablet,delayed 81 mg PO QAM 02/16/23 10/20/24 release bisacodyl 5 mg tablet,delayed 20 mg PO DAILY PRN after mom for 02/16/23 10/20/24 release (Dulcolax (bisacodyl)) no bm loratadine 10 mg tablet 10 mg PO QAM 02/16/23 10/20/24 magnesium hydroxide 400 mg/5 mL See Rx Instructions .Route 02/16/23 10/20/24 oral suspension (Milk of Magnesia) .COMPLEX PRN Constipation montelukast 10 mg tablet 10 mg PO BEDTIME 02/16/23 10/20/24 ropinirole 0.5 mg tablet 0.5 mg PO BEDTIME 02/16/23 10/20/24 sertraline 100 mg tablet 100 mg PO BEDTIME 02/16/23 10/20/24 sertraline 50 mg tablet 75 mg PO BEDTIME 02/16/23 10/20/24 gabapentin 300 mg capsule 300 mg PO TID 08/04/23 10/20/24 hydrocodone 10 mg-acetaminophen 1 tab PO BID 08/04/23 10/20/24 325 mg tablet ondansetron 4 mg disintegrating 4 mg PO Q6H PRN Nausea And Vomiting 08/04/23 10/20/24 tablet bupropion HCl 200 mg tablet,12 hr 200 mg PO DAILY 02/03/24 10/20/24 sustained-release (Wellbutrin SR) famotidine 20 mg tablet 20 mg PO DAILY 02/03/24 10/20/24 vitamin A-vitamin C-vit E-min 1 tab PO DAILY 02/03/24 10/20/24 tablet (Ocutabs tablet) albuterol 90 mcg-budesonide 80 2 inh inhalation Q6H PRN COPD 04/17/24 10/20/24 mcg/actuation HFA aerosol inhaler (Airsupra) menthol 4 % topical gel (Biofreeze 1 applic topical DAILY PRN SORE 04/17/24 10/20/24 (menthol)) JOINTS multivitamin with minerals 1 tab PO DAILY 04/17/24 10/20/24 atorvastatin 40 mg tablet 40 mg PO DAILY 06/30/24 10/20/24 carboxymethylcellulose sodium 1 drp ophthalmic (eye) BID 06/30/24 10/20/24 (Refresh Contacts eye drops) fluticasone fur. 100 mcg-umeclid 1 inh inhalation DAILY 06/30/24 10/20/24 62.5 mcg-vilant 25 mcg inhalat.powder (Trelegy Ellipta) magnesium citrate 300 ml PO BID PRN constipation 06/30/24 10/20/24 pantoprazole 40 mg tablet,delayed 40 mg PO BID 06/30/24 10/20/24 release Previous Rx's ?Medication ?Instructions ?Recorded albuterol sulfate 2.5 mg/3 mL 2.5 mg (3 mL) inhalation Q4H PRN 02/03/24 (0.083 %) solution for nebulization shortness of breath or wheezing #90 mL metoprolol succinate 25 mg 12.5 mg (1/2 x 25 mg) PO DAILY #45 10/20/24 tablet,extended release 24 hr tabs Allergies Allergy/AdvReac Type Severity Reaction Status Date / Time Penicillins Allergy Unknown Verified 10/20/24 14:49 tiotropium (From Spiriva Allergy Unknown Verified 10/20/24 14:49 with HandiHaler) Review of Systems Const: Denies: fever(s), chills, body aches or change in appetite Eyes: Denies: blurry vision or eye discomfort ENMT: Denies: throat pain or dental pain Card: Denies: chest pain Resp: Denies: dyspnea GI: Denies: abdominal pain, nausea, vomiting or diarrhea Musc: Reports: neck pain and extremity pain; Denies: back pain Skin/Breast: Denies: rash Neuro: Reports: headache(s) PFSH ED PFSH: Medical History CAD (coronary artery disease) Chronic kidney disease Nicotine dependence Non-STEMI (non-ST elevated myocardial infarction) Delirium Dementia Acute respiratory failure with hypoxia and hypercapnia Acute exacerbation of chronic obstructive airways disease COPD (chronic obstructive pulmonary disease) Social History Smoking and tobacco/nicotine status: current every day tobacco/nicotine user Physical Exam Const: COMMON NORMALS: no acute distress, patient oriented x3 and healthy appearing HENMT: COMMON NORMALS: normocephalic HEAD & SCALP: normocephalic OTHER: Hematoma to forehead Eye: COMMON NORMALS: Equal, round and reactive pupils present and EOMs intact bilaterally PUPIL: Yes Equal, round and reactive pupils present Neck/C-Spine: OTHER: Slight tenderness along neck Chest: COMMONS NORMALS: normal inspection of the chest and normal palpation of entire chest wall Resp: COMMON NORMALS: normal respiratory effort, No retractions, No use of accessory muscles and clear to auscultation bilaterally AUSCULTATION: clear to auscultation bilaterally Cardio: COMMON NORMALS: regular rate, regular rhythm and No murmurs present (Cardio) RATE: regular rate RHYTHM: regular rhythm GI: COMMON NORMALS: Normal to inspection, nondistended, normoactive bowel sounds present, Soft to palpation, non-tender and no masses PALPATION: Yes Soft to palpation Extremity: COMMON NORMALS: full ROM NARRATIVE EXTREMITY EXAM: Tenderness noted left hip no obvious deformity Neuro: COMMON NORMALS: patient oriented x3, moves all extremities and no focal motor deficits Psych: COMMON NORMALS: mental status grossly normal, Normal thought process present and cooperative THOUGHT PROCESS: Normal thought process present Skin: COMMON NORMALS: no rashes or lesions noted and no wounds GENERAL SKIN EXAM: no rashes or lesions noted Course Vital Signs: Vital signs: Vital Signs Temperature 98 F 01/25/25 01:15 Pulse Rate 68 01/25/25 01:15 Respiratory Rate 20 H 01/25/25 01:15 Blood Pressure 129/60 01/25/25 01:15 Pulse Oximetry 94 01/25/25 01:15 MDM - Head Injury Medcial Decision Making Patient presents here after a fall complaining head injury along with some hip pain imaging here shows no fracture patient stable for discharge back to the [facility]. Medical Records I reviewed the patient's medical records. Lab Data I reviewed the patient's lab results. Radiology Impressions Cervical Spine CT 01/25/25 01:07 IMPRESSION: No evidence of acute fracture. Head CT 01/25/25 01:07 IMPRESSION: No acute intracranial pathology. Hip CT 01/25/25 01:07 IMPRESSION: 1. Mild contusion in the subcutaneous fat over the left hip left posterolateral proximal thigh. 2. No obvious fracture or dislocation. All radiology interpretation(s) finalized by discharge Discharge Plan Discharge Patient Disposition: Home Clinical Impression: CHI (closed head injury) Fall Qualifiers: Encounter type: initial encounter Qualified Code(s): W19.XXXA - Unspecified fall, initial encounter Contusion of hip, left Qualifiers: Encounter type: initial encounter Qualified Code(s): S70.02XA - Contusion of left hip, initial encounter Condition: Stable Prescriptions: No Action metoprolol succinate 25 mg tablet extended release 24 hr 12.5 mg PO DAILY Qty: 45 3RF hydrocodone-acetaminophen 10-325 mg tablet 1 tab PO BID gabapentin 300 mg capsule 300 mg PO TID ondansetron 4 mg Tablet,Disintegrating 4 mg PO Q6H PRN (Reason: Nausea And Vomiting) famotidine 20 mg Tablet 20 mg PO DAILY Ocutabs Tablet 1 tab PO DAILY bupropion HCl [Wellbutrin SR] 200 mg tablet sustained-release 12 hr 200 mg PO DAILY albuterol sulfate 2.5 mg /3 mL (0.083 %) solution for nebulization 2.5 mg INHALATION Q4H PRN (Reason: shortness of breath or wheezing) Qty: 90 0RF multivitamin with minerals Tablet 1 tab PO DAILY Biofreeze (menthol) 4 % Gel 1 applic TOPICAL DAILY PRN (Reason: SORE JOINTS) Airsupra 90-80 mcg/actuation HFA aerosol inhaler 2 inh INHALATION Q6H PRN (Reason: COPD) atorvastatin 40 mg tablet 40 mg PO DAILY pantoprazole 40 mg tablet,delayed release (DR/EC) 40 mg PO BID Refresh Contacts Drops 1 drp OPHTHALMIC (EYE) BID Trelegy Ellipta 100-62.5-25 mcg blister with device 1 inh INHALATION DAILY magnesium citrate Solution 300 ml PO BID PRN (Reason: constipation) Rx Instructions: take as directed for colonoscopy aspirin 81 mg Tablet,Delayed Release (Dr/Ec) 81 mg PO QAM magnesium hydroxide [Milk of Magnesia] 400 mg/5 mL Suspension See Rx Instructions .ROUTE .COMPLEX PRN (Reason: Constipation) Rx Instructions: 30 mL po every 3rd day as needed for no bm ropinirole 0.5 mg tablet 0.5 mg PO BEDTIME montelukast 10 mg tablet 10 mg PO BEDTIME bisacodyl [Dulcolax (bisacodyl)] 5 mg Tablet,Delayed Release (Dr/Ec) 20 mg PO DAILY PRN (Reason: after mom for no bm) sertraline 50 mg tablet 75 mg PO BEDTIME loratadine 10 mg Tablet 10 mg PO QAM sertraline 100 mg tablet 100 mg PO BEDTIME Discharge Orders: Discharge ED (Routine); Ordered 01/25/25 Ordered By: Kevin Barker Referrals: Fred Treviño [Primary Care Provider] - Discharge Diet: Advance as tolerated Discharge Activity: Resume usual activity Patient Instructions: Head Injury (ED), Hip Contusion (ED) Print Language: Mongolian Coding Level of Care Code ED [place] [facility] for Olga Solo
[2025-01-25 01:15] VITALS: BP 129/60; PULSE 68; RESP 20; TEMP 36.6; O2SAT 94; BMI 22.6
--- NOTE | 2025-01-25 02:20 | PC.NURSE ---
Pt. discharged , [facility] not [facility].
[2025-01-25 02:47] VITALS: BP 129/60; PULSE 67; RESP 20; O2SAT 93
[2025-01-25 06:28] VITALS: BP 129/60; PULSE 64; RESP 18; O2SAT 93
--- NOTE | 2025-01-25 07:02 | PC.NURSE ---
took over pt care from CHELLY Mejia @ [id number]. pt waiting on [facility].
--- NOTE | 2025-01-25 08:32 | PC.PHAR ---
Pt is from [facility]
[2025-01-25 09:33] VITALS: BP 93/54; PULSE 64; O2SAT 97
== END 2025-01-25 09:38 | disposition home or self-care (01) ==
PROVIDERS: Emergency Provider Emergency Medicine; PCP Student in an Organized Health Care Education/Training Program
DX: S09.8XXA Other specified injuries of head, initial encounter (principal); S70.02XA Contusion of left hip, initial encounter; W19.XXXA Unspecified fall, initial encounter; Z79.82 Long term (current) use of aspirin; Z72.0 Tobacco use; J44.9 Chronic obstructive pulmonary disease, unspecified; I25.10 Atherosclerotic heart disease of native coronary artery without angina pectoris; N18.9 Chronic kidney disease, unspecified
CPT/HCPCS: 70450; 72125; 73700; 99284

== ENCOUNTER 2025-03-29 11:37 | Emergency (ER) | payer MEDICARE, MEDICAID, SELFPAY ==
[2025-03-29 11:38] VITALS: PULSE 75; RESP 16; TEMP 36.6; O2SAT 90
[2025-03-29 11:46] VITALS: BP 146/61
--- NOTE | 2025-03-29 11:48 | CTR_ITS ---
PROCEDURE INFORMATION: Exam: CT Head Without Contrast Exam date and time: 03/29/2025 12:13 PM Age: 74 years old Clinical indication: Injury or trauma; Fall; Blunt trauma (contusions or hematomas); Without loss of consciousness; Altered mental status/memory loss; Confusion or disorientation; Additional info: Fall/confusion TECHNIQUE: Imaging protocol: Computed tomography of the head without contrast. Radiation optimization: All CT scans at this facility use at least one of these dose optimization techniques: automated exposure control; mA and/or kV adjustment per patient size (includes targeted exams where dose is matched to clinical indication); or iterative reconstruction. COMPARISON: CT head wo con* [id number] 01/25/2025 1:11 AM RADIATION DOSE METRICS: Total DLP (mGy-cm): 2166.39 FINDINGS: Brain: Mild, diffuse atrophy of the brain.There is ill-defined, fairly symmetric low-density within the cerebral deep white matter bilaterally which is likely the sequela of chronic ischemic change due to small vessel disease. No CT evidence of mass effect, intracranial hemorrhage, or acute infarct. Cerebral ventricles: Prominent ventricles due to the atrophy. Otherwise, unremarkable. Paranasal sinuses: Extensive frontal and adjacent ethmoid sinusitis. Otherwise, unremarkable. Mastoid air cells: Visualized mastoid air cells are well aerated. Auditory system: Clear middle ear cavities bilaterally. Bones: Unremarkable. No acute fracture. Soft tissues: Otherwise, unremarkable. CT/CT head wo con* [id number] IMPRESSION: 1. No acute intracranial findings. 2. Additional details as above.
--- NOTE | 2025-03-29 11:48 | XRR_ITS ---
PROCEDURE INFORMATION: Exam: XR Right Humerus Exam date and time: 03/29/2025 12:14 PM Age: 74 years old Clinical indication: Pain; Shoulder; Right; Additional info: RT arm pain post fall TECHNIQUE: Imaging protocol: Radiologic exam of the right humerus. Views: 2 or more views. 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 Otherwise, unremarkable. Soft tissues: Normal. XR/[place] [id number] IMPRESSION: No definite acute findings.
--- NOTE | 2025-03-29 11:48 | XRR_ITS ---
PROCEDURE INFORMATION: Exam: XR Chest Exam date and time: 03/29/2025 12:14 PM Age: 74 years old Clinical indication: Injury or trauma; Fall; Additional info: RT arm pain post fall TECHNIQUE: Imaging protocol: Radiologic exam of the chest. Views: 1 view. COMPARISON: CR XR chest 1V portable [id number] 04/17/2024 11:36 AM FINDINGS: Lungs: Unremarkable. No consolidation. Pleural spaces: Unremarkable. No pleural effusion. No pneumothorax. Heart/Mediastinum: Unremarkable. No cardiomegaly. Bones/joints: Unchanged appearance of deformity and arthritis right shoulder, so likely chronic. Otherwise, unremarkable. XR/XR chest 1V portable [id number] IMPRESSION: No acute disease.
[2025-03-29 12:14] VITALS: BP 92/51; PULSE 77; O2SAT 93
--- NOTE | 2025-03-29 12:15 | W.ED.FALL ---
HPI - Fall General: Chief Complaint: Fall Stated Complaint: right arm pain s/p fall Time Seen by Provider: 03/29/25 11:38 History of Present Illness: 74-year-old female brought in via EMS. Patient resides in a custodial and had a fall that was unwitnessed approximately 430 this morning. She has some right arm pain with some bruising and contusion in the right upper arm. assisted reports she seems to be a little bit more confused than her baseline. She denies any other significant issues. She does have a small skin tear that appears old on the left upper arm from previous falls. Patient also reported below bit more weak than normal. Unsure if she hit her head. Associated symptoms-after fall: Denies chest pain or headache(s) Related Data Home Medications ?Medication ?Instructions ?Recorded ?Confirmed aspirin 81 mg tablet,delayed 81 mg PO QAM 02/16/23 03/29/25 release bisacodyl 5 mg tablet,delayed 20 mg PO DAILY PRN after mom for 02/16/23 03/29/25 release (Dulcolax (bisacodyl)) no bm loratadine 10 mg tablet 10 mg PO QAM 02/16/23 03/29/25 montelukast 10 mg tablet 10 mg PO BEDTIME 02/16/23 03/29/25 ropinirole 0.5 mg tablet 0.5 mg PO BEDTIME 02/16/23 03/29/25 sertraline 100 mg tablet 100 mg PO BEDTIME 02/16/23 03/29/25 sertraline 50 mg tablet 75 mg PO BEDTIME 02/16/23 03/29/25 hydrocodone 10 mg-acetaminophen 1 tab PO BID 08/04/23 03/29/25 325 mg tablet ondansetron 4 mg disintegrating 4 mg PO Q6H PRN Nausea And Vomiting 08/04/23 03/29/25 tablet bupropion HCl 200 mg tablet,12 hr 200 mg PO DAILY 02/03/24 03/29/25 sustained-release (Wellbutrin SR) famotidine 20 mg tablet 20 mg PO DAILY 02/03/24 03/29/25 vitamin A-vitamin C-vit E-min 1 tab PO DAILY 02/03/24 03/29/25 tablet (Ocutabs tablet) albuterol 90 mcg-budesonide 80 2 inh inhalation Q6H PRN COPD 04/17/24 03/29/25 mcg/actuation HFA aerosol inhaler (Airsupra) menthol 4 % topical gel (Biofreeze 1 applic topical TID PRN knee pain 04/17/24 03/29/25 (menthol)) atorvastatin 40 mg tablet 40 mg PO DAILY 06/30/24 03/29/25 carboxymethylcellulose sodium 1 drp ophthalmic (eye) BID 06/30/24 03/29/25 (Refresh Contacts eye drops) fluticasone fur. 100 mcg-umeclid 1 inh inhalation DAILY 06/30/24 03/29/25 62.5 mcg-vilant 25 mcg inhalat.powder (Trelegy Ellipta) pantoprazole 40 mg tablet,delayed 40 mg PO BID 06/30/24 03/29/25 release acetaminophen 325 mg tablet 650 mg PO Q4H PRN general 03/29/25 03/29/25 discomfort Previous Rx's ?Medication ?Instructions ?Recorded albuterol sulfate 2.5 mg/3 mL 2.5 mg (3 mL) inhalation Q4H PRN 02/03/24 (0.083 %) solution for nebulization shortness of breath or wheezing #90 mL Allergies Allergy/AdvReac Type Severity Reaction Status Date / Time Penicillins Allergy Unknown Verified 10/20/24 14:49 tiotropium (From Spiriva Allergy Unknown Verified 10/20/24 14:49 with Handi[employer]er) Review of Systems Const: Denies: fever(s) or chills Card: Denies: chest pain or palpitations Resp: Denies: dyspnea, productive cough or wheezing : Denies: flank pain or difficulty voiding Musc: Reports: other (Please see HPI) Skin/Breast: Reports: other (Mild swelling and discoloration right upper arm) Neuro: Denies: headache(s), numbness in extremities or weakness in extremities Psych: Denies: suicidal ideation or homicidal ideation PFS ED PFSH: Medical History CAD (coronary artery disease) Chronic kidney disease Nicotine dependence Non-STEMI (non-ST elevated myocardial infarction) Delirium Dementia Acute respiratory failure with hypoxia and hypercapnia Acute exacerbation of chronic obstructive airways disease COPD (chronic obstructive pulmonary disease) Social History Smoking and tobacco/nicotine status: current every day tobacco/nicotine user Physical Exam Const: COMMON NORMALS: no acute distress and alert ORIENTATION/CONSCIOUSNESS: Yes awake, Yes oriented to person and Yes oriented to place Resp: COMMON NORMALS: normal respiratory effort and clear to auscultation bilaterally EFFORT & INSPECTION: Yes able to speak in complete sentences AUSCULTATION: clear to auscultation bilaterally Cardio: COMMON NORMALS: regular rate and regular rhythm RATE: regular rate RHYTHM: regular rhythm GI: COMMON NORMALS: Soft to palpation and non-tender PALPATION: Yes Soft to palpation Extremity: NARRATIVE EXTREMITY EXAM: Tenderness to right upper arm but no obvious deformity. Neuro: SENSORIUM/ORIENTATION: Yes alert, Yes oriented to person and Yes oriented to place Skin: GENERAL SKIN EXAM: ecchymosis (Right upper arm) Course Vital Signs: Vital signs: Vital Signs Temperature 97.9 F 03/29/25 11:38 Pulse Rate 73 03/29/25 12:44 Respiratory Rate 16 03/29/25 11:38 Blood Pressure 92/51 03/29/25 12:14 Pulse Oximetry 90 03/29/25 12:44 Oxygen Delivery Me thod Nasal Cannula 03/29/25 12:44 Oxygen Flow Rate 3 03/29/25 12:44 MDM - Fall Medical Decision Making Patient's diagnostic studies were ordered and reviewed. She has a slight elevation of her white count likely due to to the bruising and injury from the fall. Patient has no infectious symptoms with a negative urine. Patient family is there and she appears to be currently near her baseline. She does have some underlying dementia that her mentation appears to wax and wane. Patient did have a negative CT head, chest and right shoulder arm x-rays. Patient is stable and will be discharged back to the care center. Lab Data 03/29/25 12:11 03/29/25 12:11 Radiology Impressions Chest X-Ray 03/29/25 11:48 IMPRESSION: No acute disease. Head CT 03/29/25 11:48 IMPRESSION: 1. No acute intracranial findings. 2. Additional details as above. Humerus X-Ray 03/29/25 11:48 IMPRESSION: No definite acute findings. Laboratory Results WBC 15.74 10^3/uL (3.29-11.43) H 03/29/25 12:11 RBC 3.61 10^6/uL (3.85-5.65) L 03/29/25 12:11 Hgb 11.00 g/dL (11.27-16.99) L 03/29/25 12:11 Hct 34.9 % (36-47) L 03/29/25 12:11 MCV 96.7 fl (85-98) 03/29/25 12:11 MCH 30.5 pg (27-33) 03/29/25 12:11 MCHC 31.5 g/dL (30-55) 03/29/25 12:11 RDW 14.2 % (12.1-15.1) 03/29/25 12:11 Plt Count 257 10^3/cmm (157-399) 03/29/25 12:11 MPV 8.6 fL (7.4-10.4) 03/29/25 12:11 Neut % (Auto) 62.6 % 03/29/25 12:11 Lymph % (Auto) 24.1 % 03/29/25 12:11 Barren % (Auto) 9.4 % 03/29/25 12:11 Eos % (Auto) 3.0 % 03/29/25 12:11 Baso % (Auto) 0.4 % 03/29/25 12:11 Neut # (Auto) 9.83 10^3/uL (1.8-7.7) H 03/29/25 12:11 Lymph # (Auto) 3.8 10^3/uL (0.8-4.8) 03/29/25 12:11 Barren # (Auto) 1.5 10^3/uL (0.2-0.9) H 03/29/25 12:11 Eos # (Auto) 0.5 10^3/uL (0.0-0.8) 03/29/25 12:11 Baso # (Auto) 0.1 10^3/uL (0.0-0.1) 03/29/25 12:11 Nucleated RBC % (auto) 0 % 03/29/25 12:11 Nucleated RBCs # 0.0 /100WBC 03/29/25 12:11 Sodium 141 mmol/L (136-145) 03/29/25 12:11 Potassium 4.6 mmol/L (3.5-5.1) 03/29/25 12:11 Chloride 102 mmol/L (98-107) 03/29/25 12:11 Carbon Dioxide 28 mmol/L (22-29) 03/29/25 12:11 Anion Gap 15.6 (5-19) 03/29/25 12:11 BUN 11 mg/dL (8-23) 03/29/25 12:11 Creatinine 1.4 mg/dL (0.5-0.9) H 03/29/25 12:11 GFR Calculation Not Reportable 03/29/25 12:11 Glucose 88 mg/dL (65-115) 03/29/25 12:11 Calculated Osmolality 291 mOsm/kg (285-295) 03/29/25 12:11 Calcium 9.3 mg/dL (8.5-10.5) 03/29/25 12:11 Magnesium 2.1 mg/dL (1.7-2.3) 03/29/25 12:11 Total Bilirubin 0.4 mg/dL (0.15-1.2) 03/29/25 12:11 AST 27 U/L (0-32) 03/29/25 12:11 ALT 18 U/L (0-33) 03/29/25 12:11 Alkaline Phosphatase 127 U/L (35-105) H 03/29/25 12:11 Total Protein 7.4 g/dL (6.6-8.7) 03/29/25 12:11 Albumin 3.8 g/dL (3.5-5.2) 03/29/25 12:11 Globulin 3.6 g/dL (1.3-4.6) 03/29/25 12:11 Urine Color Yellow (Yellow) 03/29/25 13:27 Urine Appearance Clear (CLEAR) 03/29/25 13:27 Urine pH 6.5 (5-7) 03/29/25 13:27 Ur Specific Weed 1.013 (1.005-1.030) 03/29/25 13:27 Urine Protein Negative (Negative) 03/29/25 13:27 Urine Glucose (UA) Negative (Normal) 03/29/25 13:27 Urine Ketones Negative (Negative) 03/29/25 13:27 Urine Blood Negative (Negative) 03/29/25 13:27 Urine Nitrate Negative (Negative) 03/29/25 13:27 Urine Bilirubin Negative (Negative) 03/29/25 13:27 Urine Urobilinogen 1.0 mg/dL (Negative) 03/29/25 13:27 Ur Leukocyte Esterase 2+ (Negative) A 03/29/25 13:27 Urine RBC 0-2 /hpf (0-2) 03/29/25 13:27 Urine WBC 6-10 /hpf (0-5) 03/29/25 13:27 Ur Squamous Epith Cells 0-5 /hpf (0-5) 03/29/25 13:27 Amorphous Sediment Not Reportable 03/29/25 13:27 Urine Bacteria None seen /hpf (NONE) 03/29/25 13:27 Hyaline Casts 0-4 /lpf H 03/29/25 13:27 All radiology interpretation(s) finalized by discharge Discharge Plan Discharge Patient Disposition: Home Clinical Impression: Fall, Episode of confusion, Contusion of right upper arm Condition: Stable Prescriptions: No Action hydrocodone-acetaminophen 10-325 mg tablet 1 tab PO BID ondansetron 4 mg Tablet,Disintegrating 4 mg PO Q6H PRN (Reason: Nausea And Vomiting) famotidine 20 mg Tablet 20 mg PO DAILY Ocutabs Tablet 1 tab PO DAILY bupropion HCl [Wellbutrin SR] 200 mg tablet sustained-release 12 hr 200 mg PO DAILY albuterol sulfate 2.5 mg /3 mL (0.083 %) solution for nebulization 2.5 mg INHALATION Q4H PRN (Reason: shortness of breath or wheezing) Qty: 90 0RF Biofreeze (menthol) 4 % Gel 1 applic TOPICAL TID PRN (Reason: knee pain) Airsupra 90-80 mcg/actuation HFA aerosol inhaler 2 inh INHALATION Q6H PRN (Reason: COPD) atorvastatin 40 mg tablet 40 mg PO DAILY pantoprazole 40 mg tablet,delayed release (DR/EC) 40 mg PO BID Refresh Contacts Drops 1 drp OPHTHALMIC (EYE) BID Trelegy Ellipta 100-62.5-25 mcg blister with device 1 inh INHALATION DAILY aspirin 81 mg Tablet,Delayed Release (Dr/Ec) 81 mg PO QAM ropinirole 0.5 mg tablet 0.5 mg PO BEDTIME montelukast 10 mg tablet 10 mg PO BEDTIME bisacodyl [Dulcolax (bisacodyl)] 5 mg Tablet,Delayed Release (Dr/Ec) 20 mg PO DAILY PRN (Reason: after mom for no bm) sertraline 50 mg tablet 75 mg PO BEDTIME loratadine 10 mg Tablet 10 mg PO QAM sertraline 100 mg tablet 100 mg PO BEDTIME acetaminophen 325 mg Tablet 650 mg PO Q4H PRN (Reason: general discomfort) Discharge Orders: Discharge ED (Routine); Ordered 03/29/25 Ordered By: Dante Schuler Referrals: Fred Treviño [Referring, Internal Medicine] Discharge Diet: Usual diet Discharge Activity: Increase activity as tolerated Patient Instructions: Confusion, Contusion, Fall Prevention for Older Adults (ED), Hematoma (ED), Opioid Safety, Pain Management Activity Restrictions/Additional Instructions: Please follow-up with her primary care provider next week if symptoms worsen or are not proving or if she has recurrent symptoms of confusion. Print Language: Panamanian Coding Level of Care Code ED Still Operator Gin for Olga Solo
[2025-03-29 12:18] LABS: Basophils # 0.1 10^3/uL (0.0-0.1); Basophils % 0.4 %; Eosinophils # 0.5 10^3/uL (0.0-0.8); Hematocrit 34.9 % (36-47); Lymphocytes # 3.8 10^3/uL (0.8-4.8); Lymphocytes % 24.1 %; Mean Corpuscular HGB Conc 31.5 g/dL (30-55); Mean Corpuscular Hemoglobin 30.5 pg (27-33); Mean Corpuscular Volume 96.7 fl (85-98); Mean Platelet Volume 8.6 fL (7.4-10.4); Monocytes # 1.5 10^3/uL (0.2-0.9); Monocytes % 9.4 %; Neutrophils # 9.83 10^3/uL (1.8-7.7); Neutrophils % 62.6 %; Nucleated Red Blood Cells % 0 %; Platelet Count 257 10^3/cmm (157-399); Red Blood Count 3.61 10^6/uL (3.85-5.65); Red Cell Distribution Width 14.2 % (12.1-15.1); White Blood Count 15.74 10^3/uL (3.29-11.43)
[2025-03-29] MEDS: sodium chloride 0.9% 500 ML IV (12:22)
[2025-03-29 12:37] LABS: Alanine Aminotransferase 18 U/L (0-33); Albumin Level 3.8 g/dL (3.5-5.2); Alkaline Phosphatase 127 U/L (35-105); Anion Gap 15.6 (5-19); Aspartate Amino Transferase 27 U/L (0-32); Blood Urea Nitrogen 11 mg/dL (8-23); Calcium 9.3 mg/dL (8.5-10.5); Carbon Dioxide 28 mmol/L (22-29); Chloride 102 mmol/L (98-107); Globulin 3.6 g/dL (1.3-4.6); Glucose 88 mg/dL (65-115); Magnesium 2.1 mg/dL (1.7-2.3); Osmolality Calculated 291 mOsm/kg (285-295); Potassium 4.6 mmol/L (3.5-5.1); Sodium 141 mmol/L (136-145); Total Bilirubin 0.4 mg/dL (0.15-1.2); Total Protein 7.4 g/dL (6.6-8.7)
[2025-03-29 12:44] VITALS: PULSE 73; O2SAT 90
--- NOTE | 2025-03-29 12:45 | PC.PHAR ---
[facility]
[2025-03-29 13:34] LABS: Bilirubin Urine Negative (Negative); Blood Urine Negative (Negative); Glucose Urine UA Negative (Normal); Ketones Urine Negative (Negative); Leukocyte Esterase Urine 2+ (Negative); Nitrate Urine Negative (Negative); Protein Urine Negative (Negative); Specific Gravity, Urine 1.013 (1.005-1.030); Urine Appearance Clear (CLEAR); Urine Color Yellow (Yellow); pH Urine 6.5 (5-7)
[2025-03-29 13:36] LABS: Add Urine Microscopic? YES; Bacteria Urine None Seen /hpf; Hyaline Casts Urine 0-4 /lpf; RBC Urine 0-2 /hpf (0-2); Squamous Epithelial Cell Urine 0-5 /hpf (0-5)
== END 2025-03-29 15:26 | disposition home or self-care (01) ==
PROVIDERS: Emergency Provider Student in an Organized Health Care Education/Training Program; PCP Internal Medicine
DX: S40.021A Contusion of right upper arm, initial encounter (principal); W19.XXXA Unspecified fall, initial encounter; R41.0 Disorientation, unspecified; Z79.82 Long term (current) use of aspirin; Z72.0 Tobacco use; I25.10 Atherosclerotic heart disease of native coronary artery without angina pectoris; J44.9 Chronic obstructive pulmonary disease, unspecified; N18.9 Chronic kidney disease, unspecified
CPT/HCPCS: 70450; 71045; 73060; 80053; 81001; 83735; 85025; 96360; 99284; J7040

== ENCOUNTER 2025-04-14 06:05 | Emergency (ER) | payer MEDICARE, MEDICAID, SELFPAY ==
[2025-04-14 06:05] VITALS: BP 97/61; PULSE 80; RESP 16; TEMP 37; O2SAT 92; BMI 22.8
--- OUTSIDE RECORDS SUMMARY | 2025-04-14 06:10 | XMS_ITS | Data Portability ---
Author Organization [facility], [facility], [facility] Address [address] [place] [address] Care Team Providers Care Sheet Combining Operator Name Role Phone WYATT HENDRICKSON Referring Provider Assessment No assessment recorded. Plan of Treatment Reminders Order Date Submit Date Provider Last Modified By Organization Details Last Modified Time Details Appointments None recorded. Lab None recorded. Referral None recorded. Procedures None recorded. Surgeries None recorded. Imaging None recorded. Medication Orders primidone 50 mg tablet 2015 016 [id number], [address] [place], [address], 6 04:02:54 Mysoline 50 mg tablet 2015 016 [id number], [address] [place], [address], 6 04:02:49 Patient TargetsNo targets recorded. Patient InstructionsNo instructions recorded. Reason for Referral None Reported. Procedures Surgical History Date Name Laterality Status Provider Name and Address Organization Details Recorded Time Tubal Ligation completed Petra Calle [facility] 03/27/2016 16:31:11 Cataract removal / Lens implant completed Petra Calle [facility] 03/27/2016 16:31:25 Other completed Petra [facility] 03/27/2016 16:31:54 Imaging Results None recorded. Procedure Notes None recorded. Medical Equipment None Reported. Allergies Allergen ID Allergen Name Allergen Category Reaction Reaction Severity Criticality Documentation Date Start Date Code Code System Note Provider Name and Address Organization Details Recorded Time 33004 Product containin g penicilli n (product) medicatio n Not available Not available Not available 03/27/2016 80909 8001 SNOMED Petra Calle [facility] 6 16:27:44 08373 Spiriva medicatio n Not available Not available Not available 03/27/2016 10522 5 RxNorm Petra Calle [facility] 6 16:27:53 Medications Name Sig Start Date Stop Date Status Note LastModified by Organization Details LastModified Time primidone 50 mg tablet TAKE ONE TABLET BY MOUTH THREE TIMES DAILY DIRECTED active Not Available Not Available No t Available bupropion HCl SR 150 mg tablet,12 hr sustained-r elease Take 1 tablet twice a day by oral route. active Not Available Not Available No t Available hydrocodone 5 mg-acetamin ophen 325 mg tablet Take 1 tablet every 6 hours by oral route as needed. active Not Available Not Available No t Available meloxicam 15 mg tablet Take 1 tablet every day by oral route. active Not Available Not Available No t Available sertraline 100 mg tablet Take 2 tablets every day by oral route. active Not Available Not Available No t Available simvastatin 40 mg tablet Take 1 tablet every day by oral route. active Not Available Not Available No t Available lorazepam 0.5 mg tablet 1/2 tablet by mouth in the morning and 1 tablet in the evening 05/29 completed Not Available Not Available Not Available gabapentin 300 mg capsule 05/29 completed Not Available Not Available Not Available gabapentin 100 mg capsule Take 1 capsule twice a day by oral route for 15 days. active Not Available Not Available No t Available loratadine 10 mg tablet Take 1 tablet every day by oral route. active Not Available Not Available No t Available Ventolin HFA 90 mcg/actuati on aerosol inhaler Inhale 2 puffs every 4 hours by inhalatio n route as needed. active Not Available Not Available No t Available Restasis 0.05 % eye drops in a dropperette INSTILL 1 DROP INTO AFFECTED EYE(S) BY OPHTHALMI C ROUTE EVERY 12 HOURS active Not Available Not Available No t Available Advair HFA 230 mcg-21 mcg/actuati on aerosol inhaler Inhale 2 puffs twice a day by inhalatio n route. active Not Available Not Available No t Available Tudorza Pressair 400 mcg/actuati on breath activated Inhale 1 puff every 12 hours by inhalatio n route as needed. active Not Available Not Available No t Available Nasacort 55 mcg nasal spray aerosol Take 2 sprays every day by nasal route as needed. active Not Available Not Available No t Available Incruse Ellipta 62.5 mcg/actuati on powder for inhalation active Not Available Not Available N ot Available Vitals Date Recorded Heart rate Oxygen saturation Oxygen saturation in Arterial blood by Pulse oximetry Body weight Body height Body mass index (BMI) Systolic And Diastolic Provider Name and Address Organization Details Last Updated DateTime 6 74 /min 93 % 93 % 77660 g 172.72 cm 21.3 kg/m2 120/68 mm[Hg] Petra Calle [facility] [employer] [facility] 6 16:22:22 Date Recorded Body height Heart rate Oxygen saturation Oxygen saturation in Arterial blood by Pulse oximetry Body weight Body mass index (BMI) Systolic And Diastolic Provider Name and Address Organization Details Last Updated DateTime 6 172.72 cm 76 /min 90 % 90 % 12498 g 22.7 kg/m2 108/72 mm[Hg] Laya Lieberman [facility] [employer] [facility] 6 15:53:36 Date Recorded Body height Heart rate Oxygen saturation Oxygen saturation in Arterial blood by Pulse oximetry Body weight Body mass index (BMI) Systolic And Diastolic Provider Name and Address Organization Details Last Updated DateTime 6 172.72 cm 69 /min 91 % 91 % 81754 g 23.6 kg/m2 110/72 mm[Hg] Laya Lieberman [facility] [employer] 6 13:10:12 Social History Question Answer Notes LastModified by Organizat ion Details LastModified Time Tobacco Smoking Status Former Smoker Petra moody [facility] [employer] [facility] 03/27/2016 16:30:19 What Is Your Level Of Caffeine Consumption? Occasional [email or web address] Information not available 03/27/2016 How Much Tobacco Do You Chew? None [email or web address] Information not available 03/27/2016 Which Illicit Or Recreational Drugs Have You Used? Denies [email or web address] Information not available 03/27/2016 Marital Status Informati on not available 03/27/2016 At What Age Did You Start Smoking Tobacco? 10 [email or web address] Information not available 03/27/2016 How Much Tobacco Do You Smoke? 0.5 PPD [email or web address] Information not available 03/27/2016 Sex: Unknown Functional Status Question Answer Note LastModified by Organizat ion Details LastModified Time What is your level of alcohol consumption? 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 Occasional [email or web address] Information not available 03/27/2016 Mental Status None recorded. Family History Relationship Description Onset Age of this Age Resolved Age Notes LastModified by Organization Details LastModified Time Mother Cerebrovascu lar accident [email or web address] Not available 0 03/27/2016 16:28:26 Brother Chronic obstructive pulmonary disease [email or web address] Not available 03/09 16:29:26 Brother Pulmonary emphysema [email or web address] Not available 03/09 16:29:58 Father Chronic obstructive pulmonary disease [email or web address] Not available 03/09 16:29:41 Father Pulmonary emphysema [email or web address] Not available 03/09 16:30:05 Medical History Condition Response Dyslipidemia Y Head Injury Y Arthritis Y Depression Y Gynecological HistoryNo gynecological history recorded. Obstetrics History GPAL:G 0 P 0 0 0 0 Past Encounters Encounter ID Performer Location Encounter Start Date Encounter Closed Date Diagnosis/Indication Diagnosis SNOMED-CT Code Diagnosis ICD10 Code Diagnosis Note [id number] MD [facility] [address] [place] [id number] 03/27/2016 16:04:35 03/27/2016 17:32:52 History of asthma 101746625 Z87.09 asthma in addition to COPD Precludes use of beta-block er for tremor. Essential tremor 1642004 09 G25.0 - Benign Essential Tremor R arm > Left arm > chin > R leg Symptoms noted 1 yr ago. Sister has similar but more severe. Background asthma Plan Start Primidone for symptomati c treatment. Defer MRI brain at this time. - [id number] Ayden Arreola MD [facility] [address] [place] [phone] 05/29/2016 15:18:02 05/29/2016 16:18:40 Essential tremor 130229500 G25.0 - Benign Essential Tremor R arm > Left arm > chin > R leg Symptoms noted 1 yr ago. Sister has similar but more severe. Background asthma precludes Beta-block er. Primidone for symptomati c treatment. Defer MRI brain at this time. - [id number] MD [facility] [address],[place] [address] [place] [address] 08/16/2016 13:02:22 08/16/2016 13:30:40 Essential tremor 061001616 G25.0 - Benign Essential Tremor R arm > Left arm > chin > R leg Symptoms noted 1 yr ago. Sister has similar but more severe. Background asthma precludes Beta-block er. Primidone and Gabapentin reduce tremor Current Rx for ET Primidone 50mg BID GP 200mg, 100mg, 200mg (at higher doses had hypersomno lence) Plan Increase Primidone to 50mg TID (start with HALF tablet in middle of day for 2 weeks) - Health Concerns Section Related Observation LastModified by Organization Detai ls LastModified Time None Recorded Concern Status LastModified by Organization Details LastModified Time None Recorded Advance Directives Directive None Recorded Payers Insurance Date Sequence Insurance Name Policy Number Policy Majano Covered Member ID Majano Member ID Guarantor Name 08/13/2016 1 [place] [employer] Ev Myers Koreyyoly [id number] D Ev Naireligiolatanya Notes Date Note Type Note Provider Name and Address Organization Details Recorded Time 03/27/2016 text/html Mrs Ev Chaves is a 65 yr old R handed woman with a background of obstructive sleep apnea (CPAP), COPD, current smoking, anxiety and depression and memory loss, referred to clinic for hand weakness and tremor. Symptoms of hand tremor for 1 year. Progressively worse.Drpping objects from hands for past 4 months.Mostly R side. Feel 1 yr ago picking fruit.Some unsteadiness on walking Rarely drinks EtOH - uncertain of effect on tremor. Sister has severe hand tremor and head tremor. Has had restless leg movents since youth. Ayden Arreola MD [facility],[facility] [address], [place], [phone], [employer] [facility] [employer], [employer] 03/27/2016 17:31:11 05/29/2016 text/html Mrs Ev Chaves returned to clinic today. Since commencing Primidone, symptoms of essential tremor have Current Rx Primidone 50mg TID, some unsteadiness. Recently started Gabapentin (100, 100, 200) for anxiety (Lorazepam weaned off). Was drowsy with 300mh TID. Ayden Arreola MD [facility] [place] [address],[facility] [address], [place], [phone], [facility] [employer], [employer] 05/29/2016 16:27:02 08/16/2016 text/html Mrs Ev Chaves returned to clinic today. Primidone caused confusion at 50mg TID (tremor was completely resolved) Current Rx for ET Primidone 50mg BID GP 200mg, 100mg, 200mg (at higher doses had hypersomnolence) Ayden Arreola MD [address] [place] [address],[facility], [place], , [employer], [facility] 08/16/2016 13:28:02 OBGyn Episode No OBEpisode recorded.
--- OUTSIDE RECORDS SUMMARY | 2025-04-14 06:10 | XMS_ITS | Data Portability ---
Author Organization [facility], [facility] Address [address] [address] Assessment No assessment recorded. Plan of Treatment Reminders Order Date Submit Date Provider Last Modified By Organization Details Last Modified Time Details Appointments None record ed. Lab None record ed. Referral None record ed. Procedures None record ed. Surgeries None record ed. Imaging None record ed. Medication Orders None record ed. Patient TargetsNo targets recorded. Patient Instructions Encounter Date Encounter Id Patient Instructions Last Modified By Organization Details Last Modified Time 02/18/2025 [id number] does have right shoulder pain, will inject next week. [email or web address] Not available 02/18/2025 14:56:10 03/16/2025 [id number] fell over the weekend, resulted in skin tear. Doing well. [email or web address] Not available 03/23/2025 15:34:02 03/23/2025 [id number] falling frequently, will d/c gabapentin and xray of foot. [email or web address] Not available 03/25/2025 15:52:18 03/30/2025 [id number] ER notes reviewed; xray negative of humerus and CT negative head d/c several meds that could be contributing to falls. Hold hydrocodone x 2 weeks. [email or web address] Not available 03/31/2025 15:23:27 04/06/2025 [id number] tx with bactrim bid x 5 days. [email or web address] Not available 04/06/2025 17:44:51 Reason for Referral None Reported. Problems Name Problem SNOMED Code Status Onset Date Resolution Date Notes Provider Name and Address Organization Details Recorded Time Alzheimer's disease 71642639 Active [address] [facility] 5 15:58:23 Restless legs 17531092 [facility] 15:58:30 Atrial fibrillation 72773696 Active 2024 [facility] 15:58:37 Chronic obstructive pulmonary disease 78282904 Active 2024 [facility] 15:58:44 Depressive disorder 75576804 Active 20[facility] 5 15:58:52 Obsessive-com pulsive disorder 295895293 Active 2024 CRISTINO FALL [facility] 5 15:58:59 Chronic pain 15338778 Active 2024 [facility] 5 17:15:29 Problem Notes None recorded. Medical Equipment None Reported. Medications Name Sig Start Date Stop Date Status Note LastModified by Organization Details LastModified Time atorvastati n 40 mg tablet Take 1 tablet every day by oral route. active Not Available Not Available No t Available Carafate 100 mg/mL oral suspension Take 10 mL twice a day by oral route. active Not Available Not Available No t Available albuterol sulfate 2.5 mg/3 mL (0.083 %) solution for nebulizatio n Inhale 3 mL every 4 hours by nebulizat ion route as needed. active Not Available Not Available No t Available hydrocodone 5 mg-acetamin ophen 325 mg tablet Take 1 tablet twice a day by oral route for 30 days. 2024 active Not Available Not Available Not Avai lable sertraline 100 mg tablet Take 1 tablet every day by oral route. active Not Available Not Available No t Available ciprofloxac in 250 mg tablet active Not Available Not Available Not Available ciprofloxac in 500 mg tablet TAKE ONE TABLET BY MOUTH TWICE A DAY FOR 7 DAYS active Not Available Not Available No t Available hydrocodone 10 mg-acetamin ophen 325 mg tablet Take 1 tablet twice a day by oral route for 30 days. 12/11 completed Not Available Not Available Not Available aspirin 81 mg tablet,lorenzo yed release Take 1 tablet every day by oral route. active Not Available Not Available No t Available Wellbutrin SR 100 mg tablet, 12 hr sustained-r elease Take 1 tablet every day by oral route. active Not Available Not Available No t Available simvastatin 40 mg tablet TAKE ONE TABLET BY MOUTH EVERY DAY WITH SUPPER active Not Available Not Available No t Available pantoprazol e 20 mg tablet,lorenzo yed release TAKE ONE TABLET BY MOUTH DAILY active Not Available Not Available No t Available famotidine 20 mg tablet Take 1 tablet every day by oral route. active Not Available Not Available No t Available Cardizem 120 mg tablet Take 1 tablet every day by oral route. active Not Available Not Available No t Available pantoprazol e 40 mg tablet,lorenzo yed release Take 1 tablet every day by oral route. active Not Available Not Available No t Available ropinirole 0.5 mg tablet Take 1 tablet every day by oral route. active Not Available Not Available No t Available prednisone 50 mg tablet TAKE ONE TABLET BY MOUTH DAILY active Not Available Not Available No t Available gabapentin 300 mg capsule Take 1 capsule 3 times a day by oral route. active Not Available Not Available No t Available sertraline 25 mg tablet active Not Available Not Available Not Available diltiazem CD 120 mg capsule,ext ended release 24 hr active Not Available Not Available Not Available montelukast 10 mg tablet Take 1 tablet every day by oral route. active Not Available Not Available No t Available ondansetron 4 mg disintegrat ing tablet active Not Available Not Available N ot Available sertraline 50 mg tablet TAKE 1 1/2 TABLETS BY MOUTH DAILY AT BEDTIME TAKE WITH THE 100MG FOR A TOTAL OF 175MG active Not Available Not Available No t Available ipratropium bromide 21 mcg (0.03 %) nasal spray 2 SPRAYS NON-AEROS OL NASAL TWICE A DAY TO BOTH NOSTRILS active Not Available Not Available No t Available loratadine 10 mg tablet Take 1 tablet every day by oral route. active Not Available Not Available No t Available bupropion HCl SR 200 mg tablet,12 hr sustained-r elease TAKE ONE TABLET DAILY FOR DEPRESSIO N active Not Available Not Available No t Available diltiazem ER 120 mg tablet,exte nded release 24 hr active Not Available Not Available Not Available Multivitami n 50 Plus tablet Take 1 tablet every day by oral route. active Not Available Not Available No t Available metoprolol tartrate 25 mg tablet active Not Available Not Available No t Available Ocuvite Adult 50 Plus 1 tab daily active Not Available Not Available No t Available Anoro Ellipta 62.5 mcg-25 mcg/actuati on powder for inhalation INHALE 1 PUFF(S) BY MOUTH EVERY DAY active Not Available Not Available No t Available Trelegy Ellipta 100 mcg-62.5 mcg-25 mcg powder for inhalation active Not Available Not Available N ot Available Trelegy Ellipta 1 puff daily active Not Available Not Available No t Available Airsupra 90 mcg-80 mcg/actuati on HFA aerosol inhaler active Not Available Not Available Not Available Vitals Date Recorded Body weight Heart rate Respiratory rate Body temperature Oxygen saturation Oxygen saturation in Arterial blood by Pulse oximetry Systolic And Diastolic Provider Name and Address Organization Details Last Updated DateTime 5 43040.5 6 g 77 /min 16 /min 97.1 [degF] 97 % 97 % 105/67 mm[Hg] [facility] 5 14:51:39 Date Recorded Body weight Heart rate Respiratory rate Body temperature Oxygen saturation Oxygen saturation in Arterial blood by Pulse oximetry Systolic And Diastolic Provider Name and Address Organization Details Last Updated DateTime 5 11359.9 3 g 76 /min 18 /min 97.3 [degF] 98 % 98 % 100/65 mm[Hg] [facility] 5 15:32:01 Date Recorded Body weight Heart rate Respiratory rate Body temperature Oxygen saturation Oxygen saturation in Arterial blood by Pulse oximetry Systolic And Diastolic Provider Name and Address Organization Details Last Updated DateTime 5 28370.9 3 g 80 /min 18 /min 97.6 [degF] 98 % 98 % 110/80 mm[Hg] [facility] 5 15:49:52 Date Recorded Body weight Heart rate Respiratory rate Body temperature Oxygen saturation Oxygen saturation in Arterial blood by Pulse oximetry Systolic And Diastolic Provider Name and Address Organization Details Last Updated DateTime 5 61504.5 2 g 76 /min 20 /min 97.8 [degF] 95 % 95 % 132/60 mm[Hg] CRISTINO FALL [facility], .LVincent 5 17:41:57 Social History None recorded. Functional Status None recorded. Mental Status None recorded. Family History Nothing Reported. Medical History No medical history recorded. Gynecological HistoryNo gynecological history recorded. Obstetrics History GPAL:G 0 P 0 0 0 0 Past Encounters Encounter ID Performer Location Encounter Start Date Encounter Closed Date Diagnosis/Indication Diagnosis SNOMED-CT Code Diagnosis ICD10 Code Diagnosis Note [id number] Ricardo Atkinson DO [facility] ([facility]) [address] [place] [phone] 5 11/03/2024 08:30:13 11/06/2024 10:08:43 Alzheimer's disease 93271161 G30.9 Restless legs 39147648 G 25.81 Atrial fibrillation 4943 6004 I48.91 Chronic ob structive pulmonary disease 18860530 J44.9 Depressive disorder 3548 9007 F32.A Obsessive- compulsive disorder 923103158 F42.9 [id number] Ricardo Atkinson DO [facility] ([facility]) [address] [place] [id number] 5 12/10/2024 08:50:00 12/12/2024 12:07:43 Alzheimer's disease 88198184 G30.9 Chronic ob structive pulmonary disease 04103566 J44.9 Atrial fibrillation 4943 6004 I48.91 [id number] Ricardo Atkinson DO [facility] ([facility]) [address] [place] [id number] 5 12/22/2024 14:55:19 12/23/2024 14:08:30 Alzheimer's disease 44700599 G30.9 Pain in right arm 806803 004 M79.194 [id number] Ricardo Atkinson DO [facility] ([facility]) [address] [place] [phone] 5 01/12/2025 08:12:46 01/13/2025 07:14:32 Chronic obstructive pulmonary disease 52673039 J44.9 Alzheimer's disease 2692 9004 G30.9 Obsessive- compulsive disorder 644914066 F42.9 Fall in snf 439 057116 Y92.537 [id number] Ricardo Atkinson DO [facility] ([facility]) [address] [place] [id number] 5 01/26/2025 11:49:23 01/28/2025 17:09:01 Alzheimer's disease 58636371 G30.9 Chronic ob structive pulmonary disease 29733401 J44.9 Obsessive- compulsive disorder 228481201 F42.9 [id number] Ricardo Atkinson DO [facility] ([facility]) [address] [place] [id number] 5 02/18/2025 08:04:53 02/22/2025 21:33:29 Chronic obstructive pulmonary disease 20386437 J44.9 Alzheimer's disease 2692 9004 G30.9 Pain of ri ght shoulder joint 1184377345 4757624 M25.511 Biceps tendinitis 551676 007 M75.21 [id number] Ricardo Atkinson DO [facility] ([facility]) [address] [place] [id number] 5 03/16/2025 10:30:02 03/24/2025 15:19:56 Chronic obstructive pulmonary disease 19851815 J44.9 Alzheimer's disease 2692 9004 G30.9 Obsessive- compulsive disorder 143656749 F42.9 Recurrent falls 66364276 2 R29.6 [id number] Ricardo Atkinson DO [facility] ([facility]) [address] [place] [phone] 5 03/23/2025 14:50:13 03/30/2025 17:25:28 Recurrent falls 201961111 R29.6 Alzheimer's disease 2692 9004 G30.9 [id number] Ricardo Atkinson DO [facility] ([facility]) [address] [place] [id number] 5 03/30/2025 12:59:53 03/31/2025 17:19:01 Recurrent falls 260200583 R29.6 Pain in right arm 031906 004 M79.632 [id number] Ricardo Atkinson DO [facility] ([facility]) [address] [place] [address] 04/06/2025 16:50:49 04/08/2025 11:03:42 Acute cellulitis 3727872248 L03.90 left arm Health Concerns Section Related Observation LastModified by Organization Detai ls LastModified Time None Recorded Concern Status LastModified by Organization Details LastModified Time None Recorded Advance Directives Directive None Recorded Payers Insurance Date Sequence Insurance Name Policy Number Policy Majano Covered Member ID Majano Member ID Guarantor Name 03/16/2025 [place] - [facility] (MEDICARE) Ev Myers Cappetta [id number] Ev Myers Cappetta 04/08/2025 [place] [facility] Ev Myers Cappetta [id number] Ev Myers Cappetta 03/16/2025 1 [place] [facility] Ev Myers Cappetta [id number] Ev Myers Cappetta 04/06/2025 2 [place] Ev Myers Cappetta [id number] Ev Myers Cappetta 12/17/2024 2 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 Ricardo Atkinson DO [address] [place] [address], [phone], [facility], Sarah 02/20/2025 15:21:36 03/16/2025 text/html DementiaReported bypatient.Quality:tamie t term memory loss; inability to learn or remember new information Severity:moderate Context:no alcohol use Associated Symptoms:anxiety no complaints per pt or staff. Ricadro Atkinson DO [address] [place] [address], [phone], [facility], LKristelLKristelC. 03/24/2025 14:15:16 03/23/2025 text/html DementiaReported bypatient.Quality:shor t term memory loss; inability to learn or remember new information Severity:moderate Context:no alcohol use Associated Symptoms:anxiety staff reports frequent falls. Ricardo AtkinsonDO [address] [place] [address], [phone], [facility], LKristelLKristelC. 03/30/2025 15:09:17 03/30/2025 text/html DementiaReported bypatient.Quality:shor t term memory loss; inability to learn or remember new information Severity:moderate Context:no alcohol use Associated Symptoms:anxiety staff reports frequent falls, seen in the ER over the weekend. Ricardo PereiraDO miguel [address] [place] [address], [phone], [facility], AraLKristelC. 03/31/2025 15:23:40 04/06/2025 text/html DementiaReported bypatient.Quality:shor t term memory loss; inability to learn or remember new information Severity:moderate Context:no alcohol use Associated Symptoms:anxiety Staff reports infected skin tear on left forearm. Ricardo AtkinsonDO [address] [place] [address], [phone], [facility], AraLTeodora. 04/06/2025 17:49:28 OBGyn Episode No OBEpisode recorded.
--- OUTSIDE RECORDS SUMMARY | 2025-04-14 06:10 | XMS_ITS | Data Portability ---
Author Organization [place] [facility] ([facility]) Address [address] [facility] [address] [facility] [place] [address] Care Team Providers Care Financial Secretary Name Role Phone SUZAN POMPA Primary Care Provider Assessment Encounter Date Assessment Date Assessment LastModified by Organization Details LastModified Time 12/17/2018 12/17/2018 ASSESSMENT 1. Cognitive concerns, specific pathology undetermined, with relatively average performance in the formal neuropsych evaluation. [email or web address] Not available 12/17/2018 17:16:13 01/21/2019 01/21/2019 ASSESSMENT 1. tremor, probably essential tremor/familial tremor, to this point not improved with reduction of bupropion 2. Tobacco smoking 3. Gait instability 4r. Possible trochanteric bursitis [email or web address] Not available 01/21/2019 18:12:14 04/08/2019 04/08/2019 ASSESSMENT 1. tremor, probably essential tremor/familial tremor, to this point not improved with reduction of bupropion 2. Tobacco smoking 3. Gait instability 4. Possible trochanteric bursitis 5. Lumbar spondylosis? Radiculopathy [email or web address] Not available 04/08/2019 18:22:08 08/17/2020 08/17/2020 ASSESSMENT 1. tremor, probably essential tremor/familial tremor, to this point not improved with reduction of bupropion 2. Tobacco smoking 3. Gait instability 4. Possible trochanteric bursitis 5. Lumbar spondylosis? Radiculopathy [email or web address] Not available 08/17/2020 15:20:10 Plan of Treatment Reminders Order Date Submit Date Provider Last Modified By Organization Details Last Modified Time Details Appointments None recorded. Lab None recorded. Referral None recorded. Procedures None recorded. Surgeries None recorded. Imaging electromyog massimo + nerve conduction study 2018 019 GRISELDA Not available 9 19:37:20 Medication Orders bupropion HCl 75 mg tablet 2018 019 [id number], [address], [place], [id number], 9 19:13:24 Patient TargetsNo targets recorded. Patient Instructions Encounter Date Encounter Id Patient Instructions Last Modified By Organization Details Last Modified Time 12/17/2018 [id number] PLAN 1. Is developed some tremulousness at times, and this is helped inspire our first suggestion which is to gradually taper and discontinue bupropion. She continues to smoke, but there are other strategies that may be helpful to be considered. She will need a prescription of some nonsustained release preparation in order to gradually offboard the medicine. In discussion we learned that she is taking this one 50 mg SR twice daily, so will provide the 75 mg tablet, beginning with 2 tablets twice daily. Thereafter we anticipate gradually reducing the dose by one half tablet every week or so while continuing the divided dose regimen. In the first week you would take 2 tablets in the morning and one one half tablets in the afternoon, the second week 1-1/2 tablets in the morning and 1-1/2 tablets in the afternoon, the third week 1-1/2 tablets in the morning and 1 tablet in the afternoon, and so on. It did any point he don't feel that this is working you can resume the prior dose, or you could extend the period of time between dose reductions. 2. Keep the other medications as they are for now 3. Stop smoking. I gather that you have an electronic panel as an alternative, but you can review this with primary care for their insights and resources. 4. Other conservative measures as before include adequate sleep intervals, now with the use of the CPap 5. follow up here next available appt. QUALITY MEASURES obligate us to document some reference to increased risk of falls and injury related to age and other factors contributing to gait instability. Mitigating factors for this concern include consideration of vitamin D supplementation, as well as balance strength and gait training. The patient is made aware of the potential risk of injuries associated with falls, and may also consider ambulation with assistive device if appropriate. QUALITY MEASURES - TOBACCO QUALITY measures note the importance of tobacco smoking as an adverse health concern. Amongst all the other health issues, this probably counts as one of the more significant and for which there are number resources that are available to help. Fortunately, this is one condition that can be cured. I suggest that you follow-up with primary care, and consider recruiting those resources that may include alternative forms of nicotine (patches, gum, lozenges), cognitive behavioral therapy, counseling, post of other options. [email or web address] Not available 12/17/2018 17:26:53 DISCUSSION Neurological presentation is stable, the patient's performance in the recent neuropsych evaluation that then normal range relative to age/gender matched controls. We therefore don't have a great deal of concern for nerd degenerative conditions, although the patient is taking related medications. I reviewed my general inclination which is to establish whether these are beneficial or not, and may make adjustments thereafter pending. She is had a reduction in the lorazepam which is a very good idea in terms of the potential for this to aggravate her balance issues and memory problems. This was directed to treat her anxiety. They prescribed the bupropion years ago to aid in her smoking cessation, but this is obviously not been effective. She is taking the sertraline for depression that she believes has been helpful. [email or web address] Not available 12/17/2018 17:18:55 01/21/2019 [id number] eating healthy f oods: care instructions [email or web address] Not available 01/21/2019 18:14:19 Quitting Tobacco : Care Instructions [email or web address] Not available 01/21/2019 18:14:19 PLAN 1. continue ongoing medication tapers to discontinue 2. Continue efforts at smoking cessation 3. Electrodiagnostic studies may be pertinent to her complaint of gait instability. 4. You might explore treatment options for trochanteric bursitis, this a likely explanation for the lateral pelvic pain complaints. Generally we try to change the sleep surface to something softer, and encourage sleeping either supine or prone to reduce pressure on the hip. QUALITY MEASURES identify abnormal BMI/body mass index as a potential health concern. There are a number of dietary measures that may be appropriate in conjunction with regular exercise. You may review this with your primary care or consider further nutritional/dietary counseling recognize that caloric restriction tends to be the most effective means of weight reduction. INTERMITTENT FASTING is a dietary strategy that can be very effective and that she might review with your primary care providers. QUALITY MEASURES indicate that for patient's aged 18 years and older who were screened for tobacco use one or more times within 24 months, we need to recommend that you received cessation counseling. This could be by way of your primary care provider or other experts in the field of tobacco cessation. We recognize that smokeless forms of nicotine may have a lesser degree of health risk, but those that are consumed orally may still increased risks of oral and esophageal cancer. [email or web address] Not available 01/21/2019 18:14:16 DISCUSSION neurologic presentation is stable, the patient tolerating the reduction of bupropion which she anticipates discontinuing altogether. We discussed smoking cessation, recognizing that Chantix might be reasonable consideration. She is under care of psychiatry who can supervise this. I shared my opinion that for my patients have been successful with roughly 50% of the recommended dose of Chantix. At this point we will consider any pharmacologic interventions appropriate to tremor but we'll reconsider as time goes on. Clinical examination finds the absence of ankle reflexes and her report of intermittent foot paresthesias suggesting the potential of polyneuropathy as a factor underlying her gait instability. [email or web address] Not available 01/21/2019 18:10:23 04/08/2019 [id number] Quitting Tobacco : Care Instructions [email or web address] Not available 05/05/2019 20:04:28 PLAN 1. Smoking cessation will be imperative to consideration of the surgical management. 2. Continue conservative measures for presumed trochanteric bursitis, but she might review this with primary care and consider orthopedic referral 3. Follow-up with Dr. Danielel apparently anticipated in relation to the lumbar spine 4. Follow-up here otherwise it patient/provider discretion. [email or web address] Not available 04/08/2019 18:24:13 DISCUSSION Neurologic presentation overall is relatively stable, many of her symptoms persisting. The electrodiagnostic findings Included note of some scant denervation change in the right AHL muscle only. Clinically, she has reduced right ankle reflex, potentially concordant with lumbar radiculopathy as suspected from the lumbar MRI findings. We reviewed her multiple conditions, and made some recommendations that she might obtain an follow-up with primary care and/or her surgeon. [email or web address] Not available 04/08/2019 18:23:20 08/17/2020 [id number] dementia: care instructions [email or web address] Not available 08/17/2020 15:23:41 helping A person with dementia: care instructions Not available 08/17/2020 15:23:41 PLAN 1. decreased amendable by one half tablet daily until discontinued 2. Reviewed the other psychotropic medications with the prescribers to consider gradual taper to discontinue Zoloft as tolerated. 3. Following the above, consider a graduated taper to discontinue Wellbutrin 4. Stop smoking . 5 Conservative measures appropriate to mitigating neurodegenerative conditions [email or web address] include regular exercise, with those activities studied to be of benefit including dance and weight training. It seems reasonable that the would best include recreational exercise (things that you like to do). Otherwise, adequate sleep intervals and a prudent diet may be helpful. 6. Follow-up here 6-12 months or when necessary interim [email or web address] Not available 08/17/2020 15:23:20 DISCUSSION neurologic presentation overall is relatively stable with persisting concern with regard to memory him a and the unfolding of some obsessive-compulsive disorder. This leads to review of her medication regimen but continues with a number of psychotropic agents. It's not clear the extent to which these are helpful and or may be contributing to some of these concerns. It is clear that Namenda has not conferred any substantial benefit with regard to cognitive or memory impairment and for that reason suggest that they taper to discontinue the drug. Thereafter, they might review with their prescribers and interest in gradual taper to this continue Zoloft. They understand that this needs to be done very gradually, typically no greater than 25% per month. Thereafter they might also consider tapering to discontinue Wellbutrin, this on boarded for years as an adjunct to smoking cessation but obviously has not been effective. We can always repeat the neurocognitive assessment but they recognize that we don't have any curative treatment intervention, and that her prior study was within normal range. At any rate I suggest this be deferred until after these other interventions have been completed. Not available 08/17/2020 15:22:18 Reason for Referral None Reported. Results Created Date Observation Date Name Description Value Unit Range Abnormal Flag Note LastModifiedBy Organization Detail LastModifiedTime 12/03/19 19 12/02/2018 maria antonia rashel cogni tive monit oring * No observ ation record ed. BARCODE Not Available 2018 16:22:20 03/19/20 19 elect romyo gram + nerve condu ction study No observ ation record ed. [facility] [place] [address], [place], [address], 03/19/2019 11:41:14 Result Notes None recorded. Problems Name Problem SNOMED Code Status Onset Date Resolution Date Notes Provider Name and Address Organization Details Recorded Time Penicillosis 152024644 Active 2018 Stefanimarc Mederos [facility] 9 12:24:21 Dementia 74972309 Active 2018 Ilana Levine [facility] 9 17:38:11 Problem Notes None recorded. Procedures Surgical History Date Name Laterality Status Provider Name and Address Organization Details Recorded Time 9 Other completed Syed Negrete MD [address], [place], [address], [facility] 03/20/2019 15:16:41 8 extraction of cataract completed [facility] 10/29/2018 13:05:28 7 Unlisted px posterior segmnt completed [facility] 10/29/2018 13:06:27 Imaging Results None recorded. Procedure Notes None recorded. Medical Equipment None Reported. Allergies Allergen ID Allergen Name Allergen Category Reaction Reaction Severity Criticality Documentation Date Start Date Code Code System Note Provider Name and Address Organization Details Recorded Time 816486 Spiriva medicatio n angioedem a Not available Not available 08/17/2020 65735 5 RxNorm Kirsten Charlotteuinger [facility] 0 14:55:26 493261 Product containin g penicilli n (product) medicatio n angioedem a Not available Not available 08/17/2020 47082 8001 SNOMED Kirsten Chalrotteuinger [facility] 0 14:55:39 Medications Name Sig Start Date Stop Date Status Note LastModified by Organization Details LastModified Time bupropion HCl SR 150 mg tablet,12 hr sustained-r elease Take 1 tablet twice a day by oral route for 30 days. 03/18 completed Not Available Not Available Not Available loratadine 10 mg disintegrat ing tablet Take 1 tablet every day by oral route as directed for 30 days. 2018 active Not Available Not Available Not Avai lable donepezil 5 mg tablet Take 1 tablet every day by oral route for 90 days. active Not Available Not Available No t Available azithromyci n 250 mg tablet 10/29 completed Not Available Not Available Not Available Lidocaine Viscous 2 % mucosal solution active Not Available Not Available Not Available hydrocodone 5 mg-acetamin ophen 325 mg tablet Take 1 tablet as needed by oral route as needed for 30 days. 2018 active Not Available Not Available Not Avai lable donepezil 10 mg tablet active Not Available Not Available Not Available meloxicam 15 mg tablet Take 1 tablet every day by oral route for 90 days. active Not Available Not Available No t Available sertraline 100 mg tablet Take 2 tablets every day by oral route in the morning for 30 days. active Not Available Not Available No t Available simvastatin 40 mg tablet Take 1 tablet every day by oral route for 90 days. active Not Available Not Available No t Available levothyroxi ne 25 mcg tablet Take 1 tablet every day by oral route for 90 days. active Not Available Not Available No t Available Vitamin C 1,000 mg tablet Take 1 tablet every day by oral route as directed for 30 days. 2018 active Not Available Not Available Not Avai lable lorazepam 0.5 mg tablet Take 1 tablet twice a day by oral route for 30 days. active Not Available Not Available No t Available ropinirole 0.25 mg tablet active Not Available Not Available Not Available bupropion HCl 75 mg tablet Take 2 tablets twice a day by oral route for 120 days. 03/18 completed 1/2 tab in AM, .25 in PM Not Available Not Available Not Available gabapentin 300 mg capsule active Not Available Not Available Not Available montelukast 10 mg tablet Take 1 tablet every day by oral route for 90 days. active Not Available Not Available No t Available gabapentin 100 mg capsule active Not Available Not Available Not Available lorazepam 1 mg tablet Take 1 tablet twice a day by oral route for 90 days. 01/21 completed Not Available Not Available Not Available fluticasone 100 mcg-salmete rol 50 mcg/dose blistr powdr for inhalation Inhale 1 puff every day by inhalatio n route at noon for 30 days. 2018 active Not Available Not Available Not Avai lable albuterol sulfate HFA 90 mcg/actuati on aerosol inhaler Inhale 2 puffs every 6 hours by inhalatio n route in the morning for 30 days. active Not Available Not Available No t Available fluticasone propionate 50 mcg/actuati on nasal spray,suspe nsion active Not Available Not Available Not Available Asprin Ec Low Dose 81 mg tablet,lorenzo yed release Take 1 tablet every day by oral route in the morning for 30 days. 2018 active Not Available Not Available Not Avai lable Vitamin D3 25 mcg (1,000 unit) capsule Take 1 capsule every day by oral route as needed for 30 days. 2018 active Not Available Not Available Not Avai lable bupropion HCl XL 150 mg 24 hr tablet, extended release active Not Available Not Available Not Available memantine 10 mg tablet active Not Available Not Available Not Available memantine 5 mg tablet Take 2 tablets every day by oral route in the morning for 30 days. active Not Available Not Available No t Available vitamin E (dl, acetate) 45 mg (100 unit) capsule Take 1 capsule every day by oral route as directed for 30 days. 2018 active Not Available Not Available Not Avai lable Multi-Vitam in take one tablet everyday 2018 active Not Available Not Available Not Avai lable Advair HFA 230 mcg-21 mcg/actuati on aerosol inhaler Inhale 2 puffs twice a day by inhalatio n route as directed for 30 days. 03/18 completed Not Available Not Available Not Available Tudorza Pressair 400 mcg/actuati on breath activated Inhale 1 puff every 12 hours by inhalatio n route in the morning for 30 days. 2018 active Not Available Not Available Not Avai lable Anoro Ellipta 62.5 mcg-25 mcg/actuati on powder for inhalation Inhale 2 puffs every day by inhalatio n route for 30 days. active Not Available Not Available No t Available bupropion HCl 150 mg tablet,12 hr sustained-r elease(smok ing deterrent) 12/17 completed Not Available Not Available Not Available Vitals Date Recorded Body height Body mass index (BMI) Body weight Heart rate Oxygen saturation Oxygen saturation in Arterial blood by Pulse oximetry Systolic And Diastolic Provider Name and Address Organization Details Last Updated DateTime 9 162.56 cm 24 kg/m2 93950.9 3 g 86 /min 93 % 93 % 119/75 mm[Hg] [facility] 9 16:38:28 Date Recorded Body height Body mass index (BMI) Body weight Heart rate Oxygen saturation Oxygen saturation in Arterial blood by Pulse oximetry Systolic And Diastolic Provider Name and Address Organization Details Last Updated DateTime 9 162.56 cm 25.2 kg/m2 87685.0 8 g 77 /min 97 % 97 % 92/59 mm[Hg] [facility] 9 17:44:09 Date Recorded Body height Body mass index (BMI) Body weight Heart rate Oxygen saturation Oxygen saturation in Arterial blood by Pulse oximetry Systolic And Diastolic Provider Name and Address Organization Details Last Updated DateTime 9 162.56 cm 25.7 kg/m2 43154.8 6 g 81 /min 93 % 93 % 99/65 mm[Hg] [facility] 9 19:15:41 Date Recorded Body height Body mass index (BMI) Body weight Heart rate Systolic And Diastolic Provider Name and Address Organization Details Last Updated DateTime 04/08/2019 162.56 cm 25.9 kg/m2 02094.81 g 84 /min 96/63 mm[Hg] Kaye Bo [facility] 04/08/2019 18:07:13 Date Recorded Body height Body mass index (BMI) Body weight Body temperature Heart rate Oxygen saturation Oxygen saturation in Arterial blood by Pulse oximetry Systolic And Diastolic Provider Name and Address Organization Details Last Updated DateTime 0 167.64 cm 23.6 kg/m2 00335.4 9 g 98.2 [degF] 77 /min 96 % 96 % 100/68 mm[Hg] Kirsten Charlottetia [facility] 0 14:55:07 Social History Question Answer Notes LastModified by Organizat ion Details LastModified Time Tobacco Smoking Status Current Every Day Smoker Stefani Gatito [facility] 10/29/2018 13:07:40 Do You Have An Advance Directive? Yes Living Will Kirsten ATWOOD Information not available 10/29/2018 Is Blood Transfusion Acceptable In An Emergency? Yes Information not available 08/17/2020 What Is Your Level Of Caffeine Consumption? Moderate Tea Information not available 10/29/2018 How Much Tobacco Do You Chew? None Information not available 10/29/2018 Who Is Your Employer? Retired Information not available 10/29/2018 Which Of Your Hands Is Dominant? Right Information not available 08/17/2020 Live Alone Or With Others? With Others [email or web address] Information not available 10/29/2018 Cigars/Cigarett es Cigarettes [email or web address] Information not available 01/21/2019 Illicit Drug Use? No Information not available 10/29/2018 # Of Cups/cans Per Day 5 [email or web address] Information not available 10/29/2018 Do You Have Trouble Sleeping? Yes Information not available 10/29/2018 Average Hours Of Sleep Per Night? 8 [email or web address] Information not available 10/29/2018 Does The Patient Have Fever OR Cough OR Shortness Of Breath? No Information not available 08/17/2020 In The Last 14 Days, Has The Patient Had Contact With A COVID-19 Positive Patient Or A COVID-19 Suspect Patient Awaiting Test Results? No Information not available 08/17/2020 If Pulse Oximetry Was Done: Is The Patient's Sp02 Less Than 93% On Room Air? No Information not available 08/17/2020 Does The Patient Have At Least TWO Of These Symptoms? Diarrhea, Chills, Muscle Pain, Repeated Shaking & Chills, Headache, Sore Throat, Or New Loss Of Taste/Smell No Information not available 08/17/2020 What Was The Date Of Your Most Recent Tobacco Screening? 08/17/2020 Information not available 08/17/2020 How Many Children Do You Have? 2 Information not available 10/29/2018 How Much Tobacco Do You Smoke? 0.5 PPD Information not available 10/29/2018 Has Tobacco Cessation Counseling Been Provided? Yes Information not available 08/17/2020 How Many Years Have You Smoked Tobacco? 50 Information not available 10/29/2018 Sex: Unknown Functional Status Question Answer Note LastModified by Organizat ion Details LastModified Time What is your level of alcohol consumption? None Information not available 10/29/2018 Do you or have you ever used smokeless tobacco? Never used smokeless tobacco Information not available 08/17/2020 Are you currently employed? No Information not available 10/29/2018 Do you or have you ever used e-cigarettes or vape? Never used electronic cigarettes Information not available 08/17/2020 What is your exercise level? Moderate Information not available 10/29/2018 Mental Status None recorded. Family History Relationship Description Onset Age of this Age Resolved Age Notes LastModified by Organization Details LastModified Time Paternal Aunt Alzheimer's disease 60 [email or web address] Not available 2018 13:10:26 Paternal Aunt Dementia 70 [email or web address] Not av ailable 10/29/2018 13:10:39 Mother CVA - cerebrovascu lar accident due to cerebral artery occlusion 60 [email or web address] Not available 2018 13:10:58 Father Family history of chronic obstructive lung disease 50 [email or web address] Not available 13:11:25 Sister Family history of Thyroid disorder [email or web address] Not available 2018 13:13:03 Sister Family history of chronic obstructive lung disease [email or web address] Not available 13:13:21 Sister Disorder of coronary artery [email or web address] Not available 2018 13:14:51 Brother Family history of chronic obstructive lung disease [email or web address] Not available 13:13:24 Medical History Condition Response COPD (Chronic Obstructive Pulmonary Dise ase) Y Arthritis Y Anxiety Y Thyroid Disease/Disorder Y Depression Y Asthma Y Gynecological HistoryNo gynecological history recorded. Obstetrics History GPAL:G 0 P 0 0 0 0 Immunizations Vaccine Type Date Status Note Provider Nam e and Address Organization Details Recorded Time Influenza, split virus, quadrivalent, preservative 0 completed Kirsten moody [facility] 08/17/2020 14:55:58 Past Encounters Encounter ID Performer Location Encounter Start Date Encounter Closed Date Diagnosis/Indication Diagnosis SNOMED-CT Code Diagnosis ICD10 Code Diagnosis Note [id number] Syed Negrete MD [facility] [place] [address] [place] [address] 10/29/2018 17:04:20 10/29/2018 19:42:19 Obstructive sleep apnea of adult 9976747408 103 G47.33 Memory impairment 530211 006 R41.3 [id number] Syed Negrete MD [facility] [place] [address] [place] [id number] 12/02/2018 16:15:33 12/03/2018 12:37:39 Memory impairment [id number] R41.3 Total time spent with patient 60 plus minutes Comprehens ishan Testing Suite Testing Motor skills, Memory, Executive function, Verbal function, Attention, Visual Spatial and Informatio n processing speed. [id number] Syed Negrete MD [facility] [address] [place] [address] 12/17/2018 16:09:26 12/17/2018 17:34:25 Age-associated memory impairment [id number] F03.90 Tremor 48356163 R25.1 [id number] Seyd Negrete MD [facility] [address] [facility],[address] [place] [phone] 01/21/2019 17:12:40 01/21/2019 18:15:15 Essential tremor [id number] G25.0 Unsteady gait 985523779 R26.81 Paresthesia 70359773 R20 .2 [id number] Syed Negrete MD [facility] [place] [address] [place] [address] 03/18/2019 18:58:17 03/20/2019 23:46:54 Paresthesia 38131177 R20.2 [id number] Syed Negrete MD [facility] [address] [place] [phone] 04/08/2019 17:59:44 04/08/2019 18:36:01 Essential tremor 089025873 G25.0 Unsteady gait 628639672 R26.81 Tobacco user 848728826 Z 72.0 [id number] Syed Negrete MD [facility] [place] [address] [place] [address] 08/17/2020 14:12:25 08/17/2020 16:11:40 Dementia [id number] F03.90 Health Concerns Section Related Observation LastModified by Organization Detai ls LastModified Time None Recorded Concern Status LastModified by Organization Details LastModified Time None Recorded Advance Directives Directive Y: Living will Kirsten ATWOOD Payers Insurance Date Sequence Insurance Name Policy Number Policy Majano Covered Member ID Majano Member ID Guarantor Name 09/07/2020 1 MEDICARE B-[place]: [facility] Ev S Cappetta [id number] Ev Cappetta 08/17/2020 2 [facility] Ev Cappetta [id number] Ev Cappetta 09/07/2020 2 [facility] Ev Cappetta [id number] Ev Cappetta Notes Date Note Type Note Provider Name and Address Organization Details Recorded Time 12/17/2018 text/html SUBJECTIVE The patient and her niece return in follow-up to initial visit here 10.29.2018 on we establish the following: PLAN 1. I suggest that she recruit the evaluation records that a been obtained previously including those regarding your cranial/brain imaging, and/or memory test/neuropsych evaluations. They understand that the staff made request for records from Dr. Manuel's office, and that the other records are unavailable, from other providers and other states including [place] and [place] and [place]. We are in receipt of those and review them, including the home sleep study performed with Sybil Means M.D. subsequent in laboratory study at [facility]. This was performed as a split-night study, the pre-Pap findings indicating a hyponea index of 9.8 per hour. She has since been provided machine, she had left the machine and [place]. She is now beginning to use that over the past week on one night. The other records include MRI of the lumbar spine, both locally and at another outside institution, and some radiographs of the hips. 2. NEUROTRAX is the neuropsychiatric test that you will return to complete here with our hvac refrigeration technician, Kaye, supervising. This takes an hour or so, but it's important for you to feel well rested before the study. It might be better to schedule it in the morning if you are a morning person or in the afternoon if you're not. Feel free to take your coffee and/or other medications as usual. She didn't have any particular difficulty with the test. 12.02.2018 NEUROTRAX cognitive profile reflects a global cognitive score 101, without any performances greater than 1 standard deviation below average. She performed below average in memory, executive function, attention and information processing speed and above average in visual spatial, verbal function motor skills. The low score was information processing speed at about 88 followed by attention, executive function and memory at about 94, motor skills at 101, verbal function 114 and visual-spatial at 122.\ We reflect on the findings that overall do not demonstrate a general neocortical impairment, and are not typical of those findings that we would encounter in Alzheimer's type dementia. 3. Also recruit the blood tests that a been obtained to make sure that we aren't missing some treatable causes of cognitive impairment. For all of these records, have them sent to you so that you abdomen hands when we visit. Refined results from Dr. Manuel's records that reflect CBC diff, CMP, TSH, T4, UA, vitamin D, lipid panel that are altogether normal apart from a slightly low GFR. 4. We will thereafter consider adjustments of your medication regimen. We need to establish whether the Aricept and/or Namenda are helpful or not. FROM the available records, the patient continues memantine 10 mg, donepezil 5 mg, sertraline 200 mg daily, hydrocodone 5 mg rarely, bupropion 150 mg SR, and lorazepam that was recently reduced to 0.5 mg twice daily. She reviewed the concern of her gait imbalance with neurosurgeon, Dr. Danielle, who ultimately didn't suspect that her neck was a factor. As followed from MRI of the neck. He is noted to have intact ankle reflexes, and was never inclined to much alcohol consumption. As not aware of any family members with neuropathy. Syed Negrete MD [address], [place], [address], [facility] 12/17/2018 17:26:57 01/21/2019 text/html SUBJECTIVE the patient and her niece return in follow-up to her prior visit here 12.17.2018 when we establish the following: PLAN 1. Is developed some tremulousness at times, and this is helped inspire our first suggestion which is to gradually taper and discontinue bupropion. She continues to smoke, but there are other strategies that may be helpful to be considered. She will need a prescription of some nonsustained release preparation in order to gradually offboard the medicine. In discussion we learned that she is taking this one 50 mg SR twice daily, so will provide the 75 mg tablet, beginning with 2 tablets twice daily. Thereafter we anticipate gradually reducing the dose by one half tablet every week or so while continuing the divided dose regimen. In the first week you would take 2 tablets in the morning and one one half tablets in the afternoon, the second week 1-1/2 tablets in the morning and 1-1/2 tablets in the afternoon, the third week 1-1/2 tablets in the morning and 1 tablet in the afternoon, and so on. It did any point he don't feel that this is working you can resume the prior dose, or you could extend the period of time between dose reductions. they have continued the downward titration schedule, currently at about 37.5 mg morning and half that in the evening. They understand that the psychiatrist is also anticipating that she discontinue this medication, initiated 20 years ago as an aid to her smoking cessation that unfortunately did not follow. 2. Keep the other medications as they are for now she is also tapering lorazepam, now down to 0.5 mg daily. 3. Stop smoking. I gather that you have an electronic panel as an alternative, but you can review this with primary care for their insights and resources. she smoking 3-5 cigarettes daily. 4. Other conservative measures as before include adequate sleep intervals, now with the use of the CPap 5. follow up here next available appt. QUALITY MEASURES obligate us to document some reference to increased risk of falls and injury related to age and other factors contributing to gait instability. Mitigating factors for this concern include consideration of vitamin D supplementation, as well as balance strength and gait training. The patient is made aware of the potential risk of injuries associated with falls, and may also consider ambulation with assistive device if appropriate. QUALITY MEASURES - TOBACCO Syed Negrete MD [address], [place], [address], [facility] 01/21/2019 18:15:31 04/08/2019 text/html SUBJECTIVE The patient returns in follow-up to prior visit for. when we establish the following: PLAN 1. continue ongoing medication tapers to discontinue She continues lorazepam 0.5 mg twice a dayShe resumed Wellbutrin 50 mg XL dailyContinue Zoloft 200 mg dailyDonepezil 5 mg dailyMemantine 5 mg daily Her niece indicates that the psychiatrist plan is to continue these medications and perhaps to increase the donepezil and amantadine but they're still investigating other conditions. 2. Continue efforts at smoking cessation She hasn't made any progress in this department 3. Electrodiagnostic studies may be pertinent to her complaint of gait instability. 6.08/27/19She returned to complete electrodiagnostic studies:FINDINGS SENSORY nerve conduction studies of BILATERAL LOWER limbs are normal.EXCEPT: 1. Low amplitude SNAP obtained from the sural nerves only, the latencies normal at about 3.3 ms bilaterally. MOTOR nerve conduction studies of BILATERAL LOWER limbs are normal EXCEPT: 1. equivocally prolonged DML, 4.4 ms fibular nerves, 3.5-4.2 ms tibial nerves. The nerve conduction velocities are normal, 45-48 years per second F WAVE latencies are normal throughout (49-51 ms) H wave studies of the tibial-gastrocnemius muscles are mildly prolonged bilaterally, 32.X milliseconds bilaterally ELECTROMYOGRAPHY (concentric) of BILATERAL LOWER limbs is normal.EXCEPT: Scant mild acute neurogenic denervation changes (positive sharp waves, fibrillations) in the right AHL muscle only. Equivocal denervation changes evident in the left AHL only. 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 Clinical correlation is required. DIAGNOSTIC IMAGING 08.27.2018I lumbar spine, [facility]:PROCEDURE: MRI LUMBAR SPINE WITHOUT I.V. CONTRAST COMPARISON: None. INDICATIONS: Osteoarthritis CLINICAL: Low back pain, bilateral hip pain with pain radiating down legs to ankles. Symptoms for 2 years. PRIORS: No. INJURY: History of falls and fx tailbone CANCER: No. SURGERY: No. TECHNIQUE: Multisequence, multiplanar MRI imaging was performed on a 1.5T magnet. The patient declined to watch the MRI Safety video prior to entering the magnet. SEDATION: None. FINDINGS: ALIGNMENT: 5 mm anterolisthesis L5-S1. PARASPINAL AREA: Unremarkable. BONES: No acute fracture or marrow edema. No spondylolysis. Endplate degenerative changes L4-5. CORD/CAUDA EQUINA: Normal caliber, contour, position and signal intensity. DISCS: Disk space narrowing and desiccation at L2-3 through L5-S1 and in the lower thoracic spine. LUMBAR LEVELS: L1-L2: No central or foraminal stenosis. L2-L3: Symmetric disc bulge. Mild bilateral facet osteoarthritis. Mild ligamentum flavum hypertrophy. Mild central stenosis. L3-L4: Symmetric disc bulge. Mild bilateral facet osteoarthritis. Mild ligamentum flavum hypertrophy. Moderate central stenosis. Mild bilateral foraminal stenosis. L4-L5: Symmetric disc bulge. Severe bilateral facet osteoarthritis. Moderate ligamentum flavum hypertrophy. Severe central stenosis. Severe left foraminal stenosis. Mild right foraminal stenosis. Continued Report - Page 2 of 2 L5-S1: Asymmetric right disc bulge osteophyte. Severe bilateral facet osteoarthritis. Severe ligamentum flavum hypertrophy. Severe right foraminal stenosis. Severe central stenosis. Mild left foraminal stenosis. CONCLUSION: 1. Degenerative changes throughout the lumbar spine. 2. L5-S1 severe right foraminal and central stenosis. 3. L4-5 multifactorial severe central and left foraminal stenosis. She has persisting lumbar pain that seems to extended lower limbs bilaterally. They consulted Dr. Danielle, neurosurgeon, who had proposed surgical treatment following a course of conservative management. Anticipate follow-up in regards to that. 4. You might explore treatment options for trochanteric bursitis, this a likely explanation for the lateral pelvic pain complaints. Generally we try to change the sleep surface to something softer, and encourage sleeping either supine or prone to reduce pressure on the hip. She has persisting lateral pelvic distress. Directed examination again finds localized tenderness overlying the greater femoral trochanter. We reviewed the conservative management, the patient having implemented an additional cushion and her sleeping surface the remains a side sleeper. QUALITY MEASURES identify abnormal BMI/body mass index as a potential health concern. There are a number of dietary measures that may be appropriate in conjunction with regular exercise. You may review this with your primary care or consider further nutritional/dietary counseling recognize that caloric restriction tends to be the most effective means of weight reduction. INTERMITTENT FASTING is a dietary strategy that can be very effective and that she might review with your primary care providers. QUALITY MEASURES indicate that for patient's aged 18 years and older who were screened for tobacco use Syed Negrete MD [address] [facility] [address], [place], [address], [facility] 05/05/2019 20:04:31 08/17/2020 text/html SUBJECTIVE The patient returns in follow-up to prior visit when we established the followin04.08.2019ASSESSMENT 1. tremor, probably essential tremor/familial tremor, to this point not improved with reduction of bupropion 2. Tobacco smoking 3. Gait instability 4. Possible trochanteric bursitis 5. Lumbar spondylosis? Radiculopathy PLAN 1. Smoking cessation will be imperative to consideration of the surgical management. 2. Continue conservative measures for presumed trochanteric bursitis, but she might review this with primary care and consider orthopedic referral 3. Follow-up with Dr. Danielle apparently anticipated in relation to the lumbar spine 4. Follow-up here otherwise it patient/provider discretion. the patient and her niece, Remedios, return in follow-up. We review interim history, the patient with ongoing orthopedic care relevant to her hip conditions and also anticipating surgery of her back by a Dr. Nunez, pain Center. She has also cut down on her smoking, But this persisted 2 or 3 cigarettes daily. The patient finds that her short-term memory or memory function in general has declined. Her prior NEUROTRAX global score was 101 in November 2018. Remedios doesn't have much concern with regard to cognitive impairment, but is made observations of her obsessive/compulsive disorder that persist and/or seem to be increasing. Current psychotropic medications include bupropion 150 mg morning, Namenda 5 mg twice a day, Zoloft 100 mg nighttime, ropinirole 0.25 mg nighttime. She identifies Dr. Pompa as her primary care at [facility]. Syed Negrete MD [address], [place], [address], [facility] 08/17/2020 15:23:47 OBGyn Episode No OBEpisode recorded.
--- NOTE | 2025-04-14 06:44 | CTR_ITS ---
PROCEDURE INFORMATION: Exam: CT Head Without Contrast Exam date and time: 04/14/2025 7:28 AM Age: 74 years old Clinical indication: Injury or trauma; Fall; Blunt trauma (contusions or hematomas); Additional info: Closed head injury TECHNIQUE: Imaging protocol: Computed tomography of the head without contrast. Radiation optimization: All CT scans at this facility use at least one of these dose optimization techniques: automated exposure control; mA and/or kV adjustment per patient size (includes targeted exams where dose is matched to clinical indication); or iterative reconstruction. COMPARISON: CT head wo con* [id number] 03/29/2025 12:13 PM RADIATION DOSE METRICS: Total DLP (mGy-cm): 863.58 FINDINGS: Brain: Normal. No hemorrhage. Unremarkable white matter. No mass effect. Cerebral ventricles: No ventriculomegaly. Paranasal sinuses: Visualized sinuses are unremarkable. No fluid levels. Mastoid air cells: Visualized mastoid air cells are well aerated. Bones: Unremarkable. No acute fracture. Soft tissues: Scalp hematoma in the frontal region, predominantly to the right of the midline. CT/CT head wo con* [id number] IMPRESSION: 1. No acute intracranial abnormality. 2. Mild mucosal thickening within the frontal air cells.
--- NOTE | 2025-04-14 06:45 | W.ED.FALL ---
HPI - Fall General: Chief Complaint: Fall Stated Complaint: FALL Time Seen by Provider: 04/14/25 06:43 History of Present Illness: 74-year-old female was sitting on the edge of her bed she slipped and fell through a floor. She states she hit the left side of her head. She is complaining of some knee and hip pain. No loss conscious no vomiting no change in vision. She was able to stand after the fall. Associated symptoms-after fall: Denies abdominal pain, chest pain or neck pain Related Data Home Medications ?Medication ?Instructions ?Recorded ?Confirmed aspirin 81 mg tablet,delayed 81 mg PO QAM 02/16/23 03/29/25 release bisacodyl 5 mg tablet,delayed 20 mg PO DAILY PRN after mom for 02/16/23 03/29/25 release (Dulcolax (bisacodyl)) no bm loratadine 10 mg tablet 10 mg PO QAM 02/16/23 03/29/25 montelukast 10 mg tablet 10 mg PO BEDTIME 02/16/23 03/29/25 ropinirole 0.5 mg tablet 0.5 mg PO BEDTIME 02/16/23 03/29/25 sertraline 100 mg tablet 100 mg PO BEDTIME 02/16/23 03/29/25 sertraline 50 mg tablet 75 mg PO BEDTIME 02/16/23 03/29/25 hydrocodone 10 mg-acetaminophen 1 tab PO BID 08/04/23 03/29/25 325 mg tablet ondansetron 4 mg disintegrating 4 mg PO Q6H PRN Nausea And Vomiting 08/04/23 03/29/25 tablet bupropion HCl 200 mg tablet,12 hr 200 mg PO DAILY 02/03/24 03/29/25 sustained-release (Wellbutrin SR) famotidine 20 mg tablet 20 mg PO DAILY 02/03/24 03/29/25 vitamin A-vitamin C-vit E-min 1 tab PO DAILY 02/03/24 03/29/25 tablet (Ocutabs tablet) albuterol 90 mcg-budesonide 80 2 inh inhalation Q6H PRN COPD 04/17/24 03/29/25 mcg/actuation HFA aerosol inhaler (Airsupra) menthol 4 % topical gel (Biofreeze 1 applic topical TID PRN knee pain 04/17/24 03/29/25 (menthol)) atorvastatin 40 mg tablet 40 mg PO DAILY 06/30/24 03/29/25 carboxymethylcellulose sodium 1 drp ophthalmic (eye) BID 06/30/24 03/29/25 (Refresh Contacts eye drops) fluticasone fur. 100 mcg-umeclid 1 inh inhalation DAILY 06/30/24 03/29/25 62.5 mcg-vilant 25 mcg inhalat.powder (Trelegy Ellipta) pantoprazole 40 mg tablet,delayed 40 mg PO BID 06/30/24 03/29/25 release acetaminophen 325 mg tablet 650 mg PO Q4H PRN general 03/29/25 03/29/25 discomfort Previous Rx's ?Medication ?Instructions ?Recorded albuterol sulfate 2.5 mg/3 mL 2.5 mg (3 mL) inhalation Q4H PRN 02/03/24 (0.083 %) solution for nebulization shortness of breath or wheezing #90 mL Allergies Allergy/AdvReac Type Severity Reaction Status Date / Time Penicillins Allergy Unknown Verified 10/20/24 14:49 tiotropium (From Spiriva Allergy Unknown Verified 10/20/24 14:49 with HandiHaler) Review of Systems Const: Denies: fever(s) or chills Card: Denies: chest pain Resp: Denies: dyspnea GI: Denies: abdominal pain : Denies: dysuria, urinary frequency or urinary urgency Musc: Denies: neck pain or back pain Skin/Breast: Denies: rash PFSH ED PFSH: Medical History CAD (coronary artery disease) Chronic kidney disease Nicotine dependence Non-STEMI (non-ST elevated myocardial infarction) Delirium Dementia Acute respiratory failure with hypoxia and hypercapnia Acute exacerbation of chronic obstructive airways disease COPD (chronic obstructive pulmonary disease) Social History Smoking and tobacco/nicotine status: current every day tobacco/nicotine user Physical Exam Const: GENERAL APPEARANCE: cooperative ORIENTATION/CONSCIOUSNESS: Yes awake, Yes oriented to person, Yes oriented to place and Yes oriented to time HENMT: COMMON NORMALS: normocephalic and hearing grossly normal bilaterally HEAD & SCALP: normocephalic OTHER: Patient has hematoma right frontal area just inside of the hairline there is a dried eschar in place she states that is where she hit her head this morning when she fell she also admits she hit her head in that same area previously. Resp: COMMON NORMALS: normal respiratory effort, No retractions, No use of accessory muscles and clear to auscultation bilaterally AUSCULTATION: clear to auscultation bilaterally Cardio: COMMON NORMALS: regular rate, regular rhythm and No murmurs present (Cardio) RATE: regular rate RHYTHM: regular rhythm GI: COMMON NORMALS: Soft to palpation and No hepatosplenomegaly present AUSCULTATION: Yes normoactive bowel sounds PALPATION: Yes Soft to palpation, No Tenderness to palpation present (GI), No Guarding due to palpation present (GI) and Yes No hepatosplenomegaly present Extremity: COMMON NORMALS: normal to inspection, capillary refill normal, no clubbing, cyanosis or edema, no calf tenderness and no pedal edema OTHER: Able to flex extend the ankle and the knee on the left leg. He flexion at the hip without pain internal/external rotation without significant pain or discomfort. Neuro: SENSORIUM/ORIENTATION: Yes oriented to person, Yes oriented to place and Yes oriented to time Skin: COMMON NORMALS: no rashes or lesions noted GENERAL SKIN EXAM: no rashes or lesions noted Course Vital Signs: Vital signs: Vital Signs Temperature 98.6 F 04/14/25 06:05 Pulse Rate 73 04/14/25 11:01 Respiratory Rate 18 04/14/25 07:23 Blood Pressure 108/67 04/14/25 08:10 Pulse Oximetry 99 04/14/25 11:01 Oxygen Delivery Me thod Room Air 04/14/25 09:19 MDM - Fall Medical Decision Making Imaging negative. Discharge patient home have her follow-up with primary care return if she has further problems Lab Data 04/14/25 06:55 04/14/25 06:[address] 04/14/25 06:44 IMPRESSION: 1. No acute intracranial abnormality. 2. Mild mucosal thickening within the frontal air cells. Hip/Pelvis X-Ray 04/14/25 06:47 IMPRESSION: 1. Mild DJD. No fracture. Laboratory Results WBC 7.41 10^3/uL (3.29-11.43) 04/14/25 06:55 RBC 3.81 10^6/uL (3.85-5.65) L 04/14/25 06:55 Hgb 11.50 g/dL (11.27-16.99) 04/14/25 06:55 Hct 36.0 % (36-47) 04/14/25 06:55 MCV 94.5 fl (85-98) 04/14/25 06:55 MCH 30.2 pg (27-33) 04/14/25 06:55 MCHC 31.9 g/dL (30-55) 04/14/25 06:55 RDW 13.9 % (12.1-15.1) 04/14/25 06:55 Plt Count 306 10^3/cmm (157-399) 04/14/25 06:55 MPV 8.6 fL (7.4-10.4) 04/14/25 06:55 Neut % (Auto) 46.7 % 04/14/25 06:55 Lymph % (Auto) 33.6 % 04/14/25 06:55 [place] % (Auto) 11.7 % 04/14/25 06:55 Eos % (Auto) 7.0 % 04/14/25 06:55 Baso % (Auto) 0.7 % 04/14/25 06:55 Neut # (Auto) 3.46 10^3/uL (1.8-7.7) 04/14/25 06:55 Lymph # (Auto) 2.5 10^3/uL (0.8-4.8) 04/14/25 06:55 [place] # (Auto) 0.9 10^3/uL (0.2-0.9) 04/14/25 06:55 Eos # (Auto) 0.5 10^3/uL (0.0-0.8) 04/14/25 06:55 Baso # (Auto) 0.1 10^3/uL (0.0-0.1) 04/14/25 06:55 Nucleated RBC % (auto) 0 % 04/14/25 06:55 Nucleated RBCs # 0.0 /100WBC 04/14/25 06:55 Sodium 136 mmol/L (136-145) 04/14/25 06:55 Potassium 4.4 mmol/L (3.5-5.1) 04/14/25 06:55 Chloride 100 mmol/L (98-107) 04/14/25 06:55 Carbon Dioxide 24 mmol/L (22-29) 04/14/25 06:55 Anion Gap 16.4 (5-19) 04/14/25 06:55 BUN 14 mg/dL (8-23) 04/14/25 06:55 Creatinine 1.6 mg/dL (0.5-0.9) H 04/14/25 06:55 GFR Calculation Not Reportable 04/14/25 06:55 Glucose 107 mg/dL (65-115) 04/14/25 06:55 Calculated Osmolality 283 mOsm/kg (285-295) L 04/14/25 06:55 Calcium 9.4 mg/dL (8.5-10.5) 04/14/25 06:55 Total Bilirubin 0.2 mg/dL (0.15-1.2) 04/14/25 06:55 AST 28 U/L (0-32) 04/14/25 06:55 ALT 21 U/L (0-33) 04/14/25 06:55 Alkaline Phosphatase 135 U/L (35-105) H 04/14/25 06:55 Total Protein 6.9 g/dL (6.6-8.7) 04/14/25 06:55 Albumin 3.7 g/dL (3.5-5.2) 04/14/25 06:55 Globulin 3.2 g/dL (1.3-4.6) 04/14/25 06:55 All radiology interpretation(s) finalized by discharge Discharge Plan Discharge Patient Disposition: Home Clinical Impression: Fall, Closed head injury Condition: Stable Prescriptions: No Action hydrocodone-acetaminophen 10-325 mg tablet 1 tab PO BID ondansetron 4 mg Tablet,Disintegrating 4 mg PO Q6H PRN (Reason: Nausea And Vomiting) famotidine 20 mg Tablet 20 mg PO DAILY Ocutabs Tablet 1 tab PO DAILY bupropion HCl [Wellbutrin SR] 200 mg tablet sustained-release 12 hr 200 mg PO DAILY albuterol sulfate 2.5 mg /3 mL (0.083 %) solution for nebulization 2.5 mg INHALATION Q4H PRN (Reason: shortness of breath or wheezing) Qty: 90 0RF Biofreeze (menthol) 4 % Gel 1 applic TOPICAL TID PRN (Reason: knee pain) Airsupra 90-80 mcg/actuation HFA aerosol inhaler 2 inh INHALATION Q6H PRN (Reason: COPD) atorvastatin 40 mg tablet 40 mg PO DAILY pantoprazole 40 mg tablet,delayed release (DR/EC) 40 mg PO BID Refresh Contacts Drops 1 drp OPHTHALMIC (EYE) BID Trelegy Ellipta 100-62.5-25 mcg blister with device 1 inh INHALATION DAILY aspirin 81 mg Tablet,Delayed Release (Dr/Ec) 81 mg PO QAM ropinirole 0.5 mg tablet 0.5 mg PO BEDTIME montelukast 10 mg tablet 10 mg PO BEDTIME bisacodyl [Dulcolax (bisacodyl)] 5 mg Tablet,Delayed Release (Dr/Ec) 20 mg PO DAILY PRN (Reason: after mom for no bm) sertraline 50 mg tablet 75 mg PO BEDTIME loratadine 10 mg Tablet 10 mg PO QAM sertraline 100 mg tablet 100 mg PO BEDTIME acetaminophen 325 mg Tablet 650 mg PO Q4H PRN (Reason: general discomfort) Discharge Orders: Discharge ED (Routine); Ordered 04/14/25 Ordered By: Ji Banegas Referrals: Ricardo Atkinson DO [Primary Care Provider, Internal Medicine] Discharge Diet: Usual diet Discharge Activity: Resume usual activity Patient Instructions: Opioid Safety, Pain Management, Patient Portal & Delvis Instructions Activity Restrictions/Additional Instructions: Thank you for choosing [facility] for your healthcare needs today. It is very important that you follow up as instructed or that you return to the Emergency Department should you have concerns or if your condition changes or worsens in any way. You are seen emergency room after fall x-rays of your hip and CT of your head were negative for acute fracture. Follow-up with your primary care physician. Print Language: Syriac Coding Level of Care Code ED [employer] for Olga Solo
--- NOTE | 2025-04-14 06:47 | XR_ITS ---
WS: [id number] Exam: XR hip LT 2-3V wo/w pel* [id number] Date/Time of Exam: 04/14/2025 6:56 AM Reason For Exam: Trauma No fracture noted. Early degenerative change of the joint compartment. Normal soft tissues. XR/XR hip LT 2-3V wo/w pel* [id number] IMPRESSION: 1. Mild DJD. No fracture.
[2025-04-14 07:02] LABS: Hematocrit 36.0 % (36-47); Hemoglobin 11.50 g/dL (11.27-16.99); Mean Corpuscular HGB Conc 31.9 g/dL (30-55); Mean Corpuscular Hemoglobin 30.2 pg (27-33); Mean Corpuscular Volume 94.5 fl (85-98); Nucleated Red Blood Cells % 0 %; Platelet Count 306 10^3/cmm (157-399); Red Blood Count 3.81 10^6/uL (3.85-5.65); White Blood Count 7.41 10^3/uL (3.29-11.43)
[2025-04-14 07:16] LABS: Alanine Aminotransferase 21 U/L (0-33); Albumin Level 3.7 g/dL (3.5-5.2); Alkaline Phosphatase 135 U/L (35-105); Anion Gap 16.4 (5-19); Aspartate Amino Transferase 28 U/L (0-32); Blood Urea Nitrogen 14 mg/dL (8-23); Calcium 9.4 mg/dL (8.5-10.5); Carbon Dioxide 24 mmol/L (22-29); Chloride 100 mmol/L (98-107); Creatinine Clr Calc Pharmacy 28.9680; Globulin 3.2 g/dL (1.3-4.6); Glucose 107 mg/dL (65-115); Osmolality Calculated 283 mOsm/kg (285-295); Potassium 4.4 mmol/L (3.5-5.1); Sodium 136 mmol/L (136-145); Total Protein 6.9 g/dL (6.6-8.7)
[2025-04-14 07:23] VITALS: BP 97/63; PULSE 76; RESP 18; O2SAT 90
--- NOTE | 2025-04-14 07:23 | PC.NURSE ---
THIS NURSE ASSUMED CARE @ 0645. PATIENT RESTING IN BED WITH HER EYES CLOSED, UNLABORED AND EVEN RESPIRATIONS.
[2025-04-14 08:10] VITALS: BP 108/67; PULSE 72; O2SAT 91
[2025-04-14 09:19] VITALS: PULSE 76; O2SAT 97
[2025-04-14 11:01] VITALS: PULSE 73; O2SAT 99
== END 2025-04-14 11:02 | disposition home or self-care (01) ==
PROVIDERS: Emergency Provider Family Medicine; PCP Internal Medicine
DX: S09.8XXA Other specified injuries of head, initial encounter (principal); W17.89XA Other fall from one level to another, initial encounter; I25.10 Atherosclerotic heart disease of native coronary artery without angina pectoris; J44.9 Chronic obstructive pulmonary disease, unspecified; N18.9 Chronic kidney disease, unspecified; Z72.0 Tobacco use; M25.552 Pain in left hip
CPT/HCPCS: 36415; 70450; 73502; 80053; 85025; 99284

== ENCOUNTER 2025-04-17 02:50 | Emergency (ER) | payer MEDICARE, MEDICAID, SELFPAY ==
[2025-04-17] VITALS (11 sets, daily range): BP systolic 116–153; BP diastolic 57–79; PULSE 77–89; RESP 17; TEMP 36.6; O2SAT 90–98; BMI 22.6
--- OUTSIDE RECORDS SUMMARY | 2025-04-17 03:02 | XMS_ITS | Data Portability ---
Author Organization [facility] Lars LKristelLVincent, [facility] Address [address] [address] Assessment No assessment recorded. Plan of Treatment [...] By Organization Details Last Modified Time 02/18/2025 [id number] does have right shoulder pain, will inject next week. [email or web address] Not available 02/18/2025 14:56:10 03/16/2025 [id number] fell over the weekend, resulted in skin tear. Doing well. [email or web address] Not available 03/23/2025 15:34:02 03/23/2025 [id number] falling frequently, will d/c gabapentin and xray of foot. [email or web address] Not available 03/25/2025 15:52:18 03/30/2025 [id number] ER notes reviewed; xray negative of humerus and CT negative head d/c several meds that could be contributing to falls. Hold hydrocodone x 2 weeks. [email or web address] Not available 03/31/2025 15:23:27 04/06/2025 [id number] tx with bactrim bid x 5 days. [email or web address] Not available 04/06/2025 17:44:51 Reason for Referral None Reported. Problems Name Problem SNOMED Code Status Onset Date Resolution Date Notes Provider Name and Address Organization Details Recorded Time Alzheimer's disease 33244407 Active 2024 CRISTINO moody [place] [facility] 5 15:58:23 Restless legs 74611633 [facility] 15:58:30 Atrial fibrillation 26994274 [facility] 15:58:37 Chronic obstructive pulmonary disease 98679855 [facility] 15:58:44 Depressive disorder 36885814 [facility] 15:58:52 Obsessive-com pulsive disorder 209893618 Active 2024 CRISTINO FALL [facility] 5 15:58:59 Chronic pain 63154114 [facility] 20[facility] 17:15:29 Problem Notes None recorded. [...] Address Organization Details Last Updated DateTime 5 33062.5 6 g 77 /min 16 /min 97.1 [degF] 97 % 97 % 105/67 mm[Hg] [facility] 5 14:51:39 Date Recorded Body weight Heart rate Respiratory rate Body temperature Oxygen saturation Oxygen saturation in Arterial blood by Pulse oximetry Systolic And Diastolic Provider Name and Address Organization Details Last Updated DateTime 5 40891.9 3 g 76 /min 18 /min 97.3 [degF] 98 % 98 % 100/65 mm[Hg] [facility] 5 15:32:01 Date Recorded Body weight Heart rate Respiratory rate Body temperature Oxygen saturation Oxygen saturation in Arterial blood by Pulse oximetry Systolic And Diastolic Provider Name and Address Organization Details Last Updated DateTime 5 78486.9 3 g 80 /min 18 /min 97.6 [degF] 98 % 98 % 110/80 mm[Hg] [facility] 5 15:49:52 Date Recorded Body weight Heart rate Respiratory rate Body temperature Oxygen saturation Oxygen saturation in Arterial blood by Pulse oximetry Systolic And Diastolic Provider Name and Address Organization Details Last Updated DateTime 5 52404.5 2 g 76 /min 20 /min 97.8 [degF] 95 % 95 % 132/60 mm[Hg] CRISTINO FALL [facility], .LVincent 5 17:41:57 Social History None recorded. Functional Status None recorded. Mental Status None recorded. Family History Nothing Reported. Medical History No medical history recorded. Gynecological HistoryNo gynecological history recorded. Obstetrics History GPAL:G 0 P 0 0 0 0 Past Encounters Encounter ID Performer Location Encounter Start Date Encounter Closed Date Diagnosis/Indication Diagnosis SNOMED-CT Code Diagnosis ICD10 Code Diagnosis Note [id number] Ricardo Atkinson DO [facility] ([facility]) [address] [place] [phone] 5 11/03/2024 08:30:13 11/06/2024 10:08:43 Alzheimer's disease 26266879 G30.9 Restless legs 18368713 G 25.81 Atrial fibrillation 4943 6004 I48.91 Chronic ob structive pulmonary disease 78480178 J44.9 Depressive disorder 3548 9007 F32.A Obsessive- compulsive disorder 975088623 F42.9 [id number] Ricardo Atkinson DO [facility] ([facility]) [address] [place] [id number] 5 12/10/2024 08:50:00 12/12/2024 12:07:43 Alzheimer's disease 76849333 G30.9 Chronic ob structive pulmonary disease 54922519 J44.9 Atrial fibrillation 4943 6004 I48.91 [id number] Ricardo Atkinson DO [facility] ([facility]) [address] [place] [id number] 5 12/22/2024 14:55:19 12/23/2024 14:08:30 Alzheimer's disease 90255507 G30.9 Pain in right arm 242110 004 M79.919 [id number] Ricardo Atkinson DO [facility] ([facility]) [address] [place] [id number] 5 01/12/2025 08:12:46 01/13/2025 07:14:32 Chronic obstructive pulmonary disease 34762625 J44.9 Alzheimer's disease 2692 9004 G30.9 Obsessive- compulsive disorder 198382325 F42.9 Fall in shelter 439 750595 Y92.450 [id number] Ricardo Atkinson DO [facility] ([facility]) [address] [place] [address] [id number] 5 01/26/2025 11:49:23 01/28/2025 17:09:01 Alzheimer's disease 62356470 G30.9 Chronic ob structive pulmonary disease 67548766 J44.9 Obsessive- compulsive disorder 078121569 F42.9 [id number] Ricardo Atkinson DO [facility] ([facility]) [address] [place] [id number] 5 02/18/2025 08:04:53 02/22/2025 21:33:29 Chronic obstructive pulmonary disease 81470742 J44.9 Alzheimer's disease 2692 9004 G30.9 Pain of ri ght shoulder joint 6061800832 2805032 M25.511 Biceps tendinitis 447242 007 M75.21 [id number] Ricardo Atkinson DO [facility] ([facility]) [address] [place] [id number] 5 03/16/2025 10:30:02 03/24/2025 15:19:56 Chronic obstructive pulmonary disease 39015109 J44.9 Alzheimer's disease 2692 9004 G30.9 Obsessive- compulsive disorder 287289237 F42.9 Recurrent falls 05961458 2 R29.6 [id number] Ricardo Atkinson DO [facility] ([facility]) [address] [place] [address] [id number] 5 03/23/2025 14:50:13 03/30/2025 17:25:28 Recurrent falls 452353258 R29.6 Alzheimer's disease 2692 9004 G30.9 [id number] Ricardo Atkinson DO [facility] ([facility]) [address] [place] [id number] 5 03/30/2025 12:59:53 03/31/2025 17:19:01 Recurrent falls 349496909 R29.6 Pain in right arm 864168 004 M79.664 [id number] Ricardo Atkinson DO [facility] ([facility]) [address] [place] [address] 04/06/2025 16:50:49 04/08/2025 11:03:42 Acute cellulitis 6812916642 L03.90 left arm Health Concerns Section Related Observation LastModified by Organization Detai ls LastModified Time None Recorded Concern Status LastModified by Organization Details LastModified Time None Recorded Advance Directives Directive None Recorded Payers Insurance Date Sequence Insurance Name Policy Number Policy Majano Covered Member ID Majano Member ID Guarantor Name 03/16/2025 [place] - [facility] (MEDICARE) Ev Myres Cappetta [id number] 1 Ev Myers Cappetta 04/08/2025 [place] [facility] Ev Myers Cappetta [id number] Ev Myers Cappetta 03/16/2025 1 [place] B[place] [facility] Ev Myers Cappetta [id number] 1 Ev Myers Cappetta 04/06/2025 2 [place] Ev Myers Cappetta [id number] Ev Myers Cappetta 12/17/2024 2 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 Ricardo Atkinson DO [address] [place] [address], [phone], [facility], Sarah 02/20/2025 15:21:36 03/16/2025 text/html DementiaReported bypatient.Quality:tamie t term memory loss; inability to learn or remember new information Severity:moderate Context:no alcohol use Associated Symptoms:anxiety no complaints per pt or staff. Ricardo Atkinson DO [address] [place] [address], [phone], [facility], LKristelLKristelC. 03/24/2025 14:15:16 03/23/2025 text/html DementiaReported bypatient.Quality:shor t term memory loss; inability to learn or remember new information Severity:moderate Context:no alcohol use Associated Symptoms:anxiety staff reports frequent falls. Ricardo AtkinsonDO [address] [place] [address], [phone], [facility], LKristelLKristelC. 03/30/2025 15:09:17 03/30/2025 text/html DementiaReported bypatient.Quality:shor t term memory loss; inability to learn or remember new information Severity:moderate Context:no alcohol use Associated Symptoms:anxiety staff reports frequent falls, seen in the ER over the weekend. Ricardo PereiraDO miguel [address] [place] [address], [phone], [facility], AraLKristelC. 03/31/2025 15:23:40 04/06/2025 text/html DementiaReported bypatient.Quality:shor t term memory loss; inability to learn or remember new information Severity:moderate Context:no alcohol use Associated Symptoms:anxiety Staff reports infected skin tear on left forearm. Ricardo AtkinsonDO [address] [place] [address], [phone], [facility], AraLTeodora. 04/06/2025 17:49:28 OBGyn Episode No OBEpisode recorded.
--- OUTSIDE RECORDS SUMMARY | 2025-04-17 03:02 | XMS_ITS | Data Portability ---
Author Organization [place] [facility] ([facility]) Address [address] [facility] [address] [facility] [place] [address] Care Team Providers Care Loss Prevention Lead Name Role Phone SUZAN POMPA Primary Care Provider [phone] Assessment Encounter Date Assessment Date Assessment LastModified by Organization Details LastModified Time 12/17/2018 12/17/2018 ASSESSMENT 1. Cognitive concerns, specific pathology undetermined, with relatively average performance in the formal neuropsych evaluation. Not available 12/17/2018 17:16:13 01/21/2019 01/21/2019 ASSESSMENT 1. tremor, probably essential tremor/familial tremor, to this point not improved with reduction of bupropion 2. Tobacco smoking 3. Gait instability 4r. Possible trochanteric bursitis Not available 01/21/2019 18:12:14 04/08/2019 04/08/2019 ASSESSMENT 1. tremor, probably essential tremor/familial tremor, to this point not improved with reduction of bupropion 2. Tobacco smoking 3. Gait instability 4. Possible trochanteric bursitis 5. Lumbar spondylosis? Radiculopathy Not available 04/08/2019 18:22:08 08/17/2020 08/17/2020 ASSESSMENT 1. tremor, probably essential tremor/familial tremor, to this point not improved with reduction of bupropion 2. Tobacco smoking 3. Gait instability 4. Possible trochanteric bursitis 5. Lumbar spondylosis? Radiculopathy [email or web address] Not available 08/17/2020 15:20:10 Plan of Treatment Reminders Order Date Submit Date Provider Last Modified By Organization Details Last Modified Time Details Appointments None recorded. Lab None recorded. Referral None recorded. Procedures None recorded. Surgeries None recorded. Imaging electromyog massimo + nerve conduction study 2018 019 GRISELDA Not available 9 19:37:20 Medication Orders bupropion HCl 75 mg tablet 2018 019 [email or web address] [id number], [address], [place], [address], 9 19:13:24 Patient TargetsNo targets recorded. Patient Instructions Encounter Date Encounter Id Patient Instructions Last Modified By Organization Details Last Modified Time 12/17/2018 [id number] PLAN 1. Is developed some tremulousness at [...] behavioral therapy, counseling, post of other options. [email or web address] Not available 12/17/2018 17:26:53 DISCUSSION Neurological presentation [...] depression that she believes has been helpful. [email or web address] Not available 12/17/2018 17:18:55 01/21/2019 [id number] eating healthy f oods: care instructions Not available 01/21/2019 18:14:19 Quitting Tobacco : Care Instructions [email or web address] Not available 01/21/2019 18:14:19 PLAN 1. continue [...] increased risks of oral and esophageal cancer. [email or web address] Not available 01/21/2019 18:14:16 DISCUSSION neurologic presentation [...] as a factor underlying her gait instability. [email or web address] Not available 01/21/2019 18:10:23 04/08/2019 [id number] Quitting Tobacco : Care Instructions [email or web address] Not available 05/05/2019 20:04:28 PLAN 1. Smoking cessation will be imperative to consideration of the surgical management. 2. Continue conservative measures for presumed trochanteric bursitis, but she might review this with primary care and consider orthopedic referral 3. Follow-up with Dr. Danielle apparently anticipated in relation to the lumbar spine 4. Follow-up here otherwise it patient/provider discretion. [email or web address] Not available 04/08/2019 18:24:13 DISCUSSION Neurologic presentation [...] follow-up with primary care and/or her surgeon. Not available 04/08/2019 18:23:20 08/17/2020 [id number] dementia: care instructions [email or web address] Not available 08/17/2020 15:23:41 helping A person with dementia: care instructions [email or web address] Not available 08/17/2020 15:23:41 PLAN 1. decreased amendable by one half tablet daily until discontinued 2. Reviewed the other psychotropic medications with the prescribers to consider gradual taper to discontinue Zoloft as tolerated. 3. Following the above, consider a graduated taper to discontinue Wellbutrin 4. Stop smoking . 5 Conservative measures appropriate to mitigating neurodegenerative conditions [email or web address] include regular exercise, with those activities studied to be of benefit including dance and weight training. It seems reasonable that the would best include recreational exercise (things that you like to do). Otherwise, adequate sleep intervals and a prudent diet may be helpful. 6. Follow-up here 6-12 months or when necessary interim [email or web address] Not available 08/17/2020 15:23:20 DISCUSSION neurologic presentation [...] after these other interventions have been completed. [email or web address] Not available 08/17/2020 15:22:18 Reason for Referral None Reported. Results Created Date Observation Date Name Description Value Unit Range Abnormal Flag Note LastModifiedBy Organization Detail LastModifiedTime 12/03/19 19 12/02/2018 maria antonia rashel cogni tive monit oring * No observ ation record ed. BARCODE Not Available 2018 16:22:20 03/19/20 19 elect romyo gram + nerve condu ction study No observ ation record ed. [email or web address] [facility] [place] [address], [place], [address], 03/19/2019 11:41:14 Result Notes None recorded. Problems Name Problem SNOMED Code Status Onset Date Resolution Date Notes Provider Name and Address Organization Details Recorded Time Penicillosis 265506262 Active 2018 Stefanimarc Mederos [facility] 9 12:24:21 Dementia 08184278 Active 2018 Ilana Levine [facility] 9 17:38:11 Problem Notes None recorded. Procedures Surgical History Date Name Laterality Status Provider Name and Address Organization Details Recorded Time 9 Other completed Syed Negrete MD [address], [place], [address], [facility] 03/20/2019 15:16:41 8 extraction of cataract completed [facility] 10/29/2018 13:05:28 7 Unlisted px posterior segmnt completed [facility] 10/29/2018 13:06:27 Imaging Results None recorded. Procedure Notes None recorded. Medical Equipment None Reported. Allergies Allergen ID Allergen Name Allergen Category Reaction Reaction Severity Criticality Documentation Date Start Date Code Code System Note Provider Name and Address Organization Details Recorded Time 936251 Spiriva medicatio n angioedem a Not available Not available 08/17/2020 98967 5 RxNorm Kirsten Charlotteuinger [facility] 0 14:55:26 847641 Product containin g penicilli n (product) medicatio n angioedem a Not available Not available 08/17/2020 19730 8001 SNOMED Kirsten [facility]uinger [facility] 0 14:55:39 Medications Name Sig Start Date [...] Updated DateTime 9 162.56 cm 24 kg/m2 46361.9 3 g 86 /min 93 % 93 % 119/75 mm[Hg] [facility] 9 16:38:28 Date Recorded Body height Body mass index (BMI) Body weight Heart rate Oxygen saturation Oxygen saturation in Arterial blood by Pulse oximetry Systolic And Diastolic Provider Name and Address Organization Details Last Updated DateTime 9 162.56 cm 25.2 kg/m2 23202.0 8 g 77 /min 97 % 97 % 92/59 mm[Hg] [facility] 9 17:44:09 Date Recorded Body height Body mass index (BMI) Body weight Heart rate Oxygen saturation Oxygen saturation in Arterial blood by Pulse oximetry Systolic And Diastolic Provider Name and Address Organization Details Last Updated DateTime 9 162.56 cm 25.7 kg/m2 32823.8 6 g 81 /min 93 % 93 % 99/65 mm[Hg] [facility] 9 19:15:41 Date Recorded Body height Body mass index (BMI) Body weight Heart rate Systolic And Diastolic Provider Name and Address Organization Details Last Updated DateTime 04/08/2019 162.56 cm 25.9 kg/m2 39421.81 g 84 /min 96/63 mm[Hg] Kaye Bo [facility] 04/08/2019 18:07:13 Date Recorded Body height Body mass index (BMI) Body weight Body temperature Heart rate Oxygen saturation Oxygen saturation in Arterial blood by Pulse oximetry Systolic And Diastolic Provider Name and Address Organization Details Last Updated DateTime 0 167.64 cm 23.6 kg/m2 54011.4 9 g 98.2 [degF] 77 /min 96 % 96 % 100/68 mm[Hg] Kirsten Charlottetia [facility] 0 14:55:07 Social History Question Answer Notes LastModified by Organizat ion Details LastModified Time Tobacco Smoking Status Current Every Day Smoker Stefani Gatito [facility] 10/29/2018 13:07:40 Do You Have An Advance [...] Live Alone Or With Others? With Others Information not available 10/29/2018 Cigars/Cigarett es Cigarettes [email or web address] Information not available 01/21/2019 Illicit Drug Use? No Information not available 10/29/2018 # Of Cups/cans Per Day 5 [email or web address] Information not available 10/29/2018 Do You Have Trouble Sleeping? Yes Information not available 10/29/2018 Average Hours Of Sleep Per Night? 8 [email or web address] Information not available 10/29/2018 Does The Patient [...] virus, quadrivalent, preservative 0 completed Kirsten moody [facility] 08/17/2020 14:55:58 Past Encounters Encounter ID Performer Location Encounter Start Date Encounter Closed Date Diagnosis/Indication Diagnosis SNOMED-CT Code Diagnosis ICD10 Code Diagnosis Note [id number] Syed Negrete MD [facility] [place] [address] [place] [address] 10/29/2018 17:04:20 10/29/2018 19:42:19 Obstructive sleep apnea of adult 7227626329 103 G47.33 Memory impairment 293933 006 R41.3 [id number] Syed Negrete MD [facility] [place] [address] [place] [address] 12/02/2018 16:15:33 12/03/2018 12:37:39 Memory impairment 502252292 R41.3 Total time spent with patient 60 plus minutes Comprehens ishan Testing Suite Testing Motor skills, Memory, Executive function, Verbal function, Attention, Visual Spatial and Informatio n processing speed. [id number] Syed Negrete MD [facility] [place] [address] [place] [address] 12/17/2018 16:09:26 12/17/2018 17:34:25 Age-associated memory impairment 178467717 F03.90 Tremor 34694784 R25.1 [id number] Syed Negrete MD [facility] [place] [address] [facility],[address] [place] [address] 01/21/2019 17:12:40 01/21/2019 18:15:15 Essential tremor 610115178 G25.0 Unsteady gait 763076644 R26.81 Paresthesia 19864937 R20 .2 [id number] Syed Negrete MD [facility] [place] [address] [place] [address] 03/18/2019 18:58:17 03/20/2019 23:46:54 Paresthesia 19487247 R20.2 [id number] Syed Negrete MD [facility] [place] [address] [address] [place] [address] 04/08/2019 17:59:44 04/08/2019 18:36:01 Essential tremor 126590828 G25.0 Unsteady gait 433130876 R26.81 Tobacco user 085531852 Z 72.0 [id number] Syed Negrete MD [facility] [place] [address] [place] [address] 08/17/2020 14:12:25 08/17/2020 16:11:40 Dementia 39385670 F03.90 Health Concerns Section Related Observation LastModified by Organization Detai ls LastModified Time None Recorded Concern Status LastModified by Organization Details LastModified Time None Recorded Advance Directives Directive Y: Living will Kirsten ATWOOD Payers Insurance Date Sequence Insurance Name Policy Number Policy Majano Covered Member ID Majano Member ID Guarantor Name 09/07/2020 1 [place]ICARE [place]: [facility] Ev S Cappetta [id number] Ev Cappetta 08/17/2020 2 [facility] Ev Cappetta [id number] Ev Cappetta 09/07/2020 2 [facility] Ev Cappetta [id number] Ev Cappetta Notes Date Note Type Note [...] from other providers and other states including [place] and [place] and [place]. We are in receipt of those and review them, including the home sleep study performed with Sybil Means M.D. subsequent in laboratory study at [facility]. This was performed as a split-night study, [...] will return to complete here with our laboratory mechanical technician, Kaye, supervising. This takes an hour [...] with neuropathy. Syed Negrete MD [address] [facility] [address], [place], [address], [facility] 12/17/2018 17:26:57 01/21/2019 text/html SUBJECTIVE [...] - TOBACCO Syed Negrete MD [address] [facility] [address], [place], [address], [facility] 01/21/2019 18:15:31 04/08/2019 text/html SUBJECTIVE The [...] tobacco use Syed Negrete MD [address] [facility] [address], [place], [address], [facility] 05/05/2019 20:04:31 08/17/2020 text/html SUBJECTIVE [...] Dr. Pompa as her primary care at [facility]. Syed Negrete MD [address] [facility] [address], [place], [address], [facility] 08/17/2020 15:23:47 OBGyn Episode No OBEpisode recorded.
--- OUTSIDE RECORDS SUMMARY | 2025-04-17 03:02 | XMS_ITS | Data Portability ---
Author Organization [facility], [facility], [facility] Address [address] [place] [address] Care Team Providers Care Optometric Tech Name Role Phone WYATT HENDRICKSON Referring Provider [phone] Assessment No assessment recorded. Plan of Treatment Reminders Order Date Submit Date Provider Last Modified By Organization Details Last Modified Time Details Appointments None recorded. Lab None recorded. Referral None recorded. Procedures None recorded. Surgeries None recorded. Imaging None recorded. Medication Orders primidone 50 mg tablet 2015 016 [id number], [address] [place], [address], 6 04:02:54 Mysoline 50 mg tablet 2015 016 [id number], [address] [place], [address], 6 04:02:49 Patient TargetsNo targets recorded. Patient InstructionsNo instructions recorded. Reason for Referral None Reported. Procedures Surgical History Date Name Laterality Status Provider Name and Address Organization Details Recorded Time Tubal Ligation completed Petra Calle [facility] 03/27/2016 16:31:11 Cataract removal / Lens implant completed Petra Calle [facility] 03/27/2016 16:31:25 Other completed Petra Cabell [facility] [employer] [facility] 03/27/2016 16:31:54 Imaging Results None recorded. Procedure Notes None recorded. Medical Equipment None Reported. Allergies Allergen ID Allergen Name Allergen Category Reaction Reaction Severity Criticality Documentation Date Start Date Code Code System Note Provider Name and Address Organization Details Recorded Time 66694 Product containin g penicilli n (product) medicatio n Not available Not available Not available 03/27/2016 25326 8001 SNOMED Petra Calle [facility] 6 16:27:44 73465 Spiriva medicatio n Not available Not available Not available 03/27/2016 32643 5 RxNorm Petra Calle [facility] 6 16:27:53 Medications Name Sig Start [...] 6 74 /min 93 % 93 % 21721 g 172.72 cm 21.3 kg/m2 120/68 mm[Hg] Petra Calle [facility] [employer] [facility] 6 16:22:22 Date Recorded Body height Heart rate Oxygen saturation Oxygen saturation in Arterial blood by Pulse oximetry Body weight Body mass index (BMI) Systolic And Diastolic Provider Name and Address Organization Details Last Updated DateTime 6 172.72 cm 76 /min 90 % 90 % 62307 g 22.7 kg/m2 108/72 mm[Hg] Laya Lieberman [facility] [employer] [facility] 6 15:53:36 Date Recorded Body height Heart rate Oxygen saturation Oxygen saturation in Arterial blood by Pulse oximetry Body weight Body mass index (BMI) Systolic And Diastolic Provider Name and Address Organization Details Last Updated DateTime 6 172.72 cm 69 /min 91 % 91 % 22805 g 23.6 kg/m2 110/72 mm[Hg] Laya Lieberman [facility] [employer] 6 13:10:12 Social History Question Answer Notes LastModified by Organizat ion Details LastModified Time Tobacco Smoking Status Former Smoker Petra moody [facility] [employer] [facility] 03/27/2016 16:30:19 What Is Your Level Of Caffeine Consumption? Occasional [email or web address] Information not available 03/27/2016 How Much Tobacco Do You Chew? None [email or web address] Information not available 03/27/2016 Which Illicit Or Recreational Drugs Have You Used? Denies [email or web address] Information not available 03/27/2016 Marital Status [email or web address] Informati on not available 03/27/2016 At What Age Did You Start Smoking Tobacco? 10 [email or web address] Information not available 03/27/2016 How Much Tobacco Do You Smoke? 0.5 PPD [email or web address] Information not available 03/27/2016 Sex: Unknown Functional Status Question Answer Note LastModified by Organizat ion Details LastModified Time What is your level of alcohol consumption? 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 Occasional [email or web address] Information not available 03/27/2016 Mental Status None recorded. Family History Relationship Description Onset Age of this Age Resolved Age Notes LastModified by Organization Details LastModified Time Mother Cerebrovascu lar accident [email or web address] Not available 0 03/27/2016 16:28:26 Brother Chronic obstructive pulmonary disease [email or web address] Not available 03/09 16:29:26 Brother Pulmonary emphysema [email or web address] Not available 03/09 16:29:58 Father Chronic obstructive pulmonary disease [email or web address] Not available 03/09 16:29:41 Father Pulmonary emphysema [email or web address] Not available 03/09 16:30:05 Medical History Condition Response Dyslipidemia Y Head Injury Y Arthritis Y Depression Y Gynecological HistoryNo gynecological history recorded. Obstetrics History GPAL:G 0 P 0 0 0 0 Past Encounters Encounter ID Performer Location Encounter Start Date Encounter Closed Date Diagnosis/Indication Diagnosis SNOMED-CT Code Diagnosis ICD10 Code Diagnosis Note [id number] MD [facility] [address] [place] [address] 03/27/2016 16:04:35 03/27/2016 17:32:52 History of asthma 935975474 Z87.09 asthma in addition to COPD Precludes use of beta-block er for tremor. Essential tremor 0488200 09 G25.0 - Benign Essential Tremor R arm > Left arm > chin > R leg Symptoms noted 1 yr ago. Sister has similar but more severe. Background asthma Plan Start Primidone for symptomati c treatment. Defer MRI brain at this time. - [id number] Ayden Arreola MD [facility] [address] [place] [address] 05/29/2016 15:18:02 05/29/2016 16:18:40 Essential tremor 622647996 G25.0 - Benign Essential Tremor R arm > Left arm > chin > R leg Symptoms noted 1 yr ago. Sister has similar but more severe. Background asthma precludes Beta-block er. Primidone for symptomati c treatment. Defer MRI brain at this time. - [id number] MD [facility] [address],[place] [address] [place] [address] 08/16/2016 13:02:22 08/16/2016 13:30:40 Essential tremor 177286065 G25.0 - Benign Essential Tremor R arm [...] ID Guarantor Name 08/13/2016 1 [place]ICARE [place]: [employer] Ev Myers Koreyyoly [id number] D Ev Naireligiolatanya Notes Date Note Type [...] leg movents since youth. Ayden Arreola MD [facility],[facility] [address], [place], [address], [employer] [facility], [email or web address] 03/27/2016 17:31:11 05/29/2016 text/html Mrs Ev Chaves returned to clinic today. Since commencing Primidone, symptoms of essential tremor have Current Rx Primidone 50mg TID, some unsteadiness. Recently started Gabapentin (100, 100, 200) for anxiety (Lorazepam weaned off). Was drowsy with 300mh TID. Ayden Arreola MD [facility] [place] [address],[facility] [address], [place], [address], [facility] [employer], [email or web address] 05/29/2016 16:27:02 08/16/2016 text/html Mrs Ev Chaves returned to clinic today. Primidone caused confusion at 50mg TID (tremor was completely resolved) Current Rx for ET Primidone 50mg BID GP 200mg, 100mg, 200mg (at higher doses had hypersomnolence) Ayden Arreola MD [address] [place] [address],[facility] [address], [place], , [employer], [facility] 08/16/2016 13:28:02 OBGyn Episode No OBEpisode recorded.
--- NOTE | 2025-04-17 03:20 | W.ED.FALL ---
HPI - Fall General: Chief Complaint: Fall Stated Complaint: Fall Time Seen by Provider: 04/17/25 03:20 History of Present Illness: Patient presents following a fall that occurred while they were asleep - she fell out of bed and struck the floor. Patient reports pain in the right hand that radiates down to the wrist, with the hand being more painful than the wrist. Patient denies loss of consciousness during the fall. Patient landed on the floor. No other injuries reported besides the hand/wrist. Patient denies being on any blood thinners. Related Data Home Medications ?Medication ?Instructions ?Recorded ?Confirmed aspirin 81 mg tablet,delayed 81 mg PO QAM 02/16/23 03/29/25 release bisacodyl 5 mg tablet,delayed 20 mg PO DAILY PRN after mom for 02/16/23 03/29/25 release (Dulcolax (bisacodyl)) no bm loratadine 10 mg tablet 10 mg PO QAM 02/16/23 03/29/25 montelukast 10 mg tablet 10 mg PO BEDTIME 02/16/23 03/29/25 ropinirole 0.5 mg tablet 0.5 mg PO BEDTIME 02/16/23 03/29/25 sertraline 100 mg tablet 100 mg PO BEDTIME 02/16/23 03/29/25 sertraline 50 mg tablet 75 mg PO BEDTIME 02/16/23 03/29/25 hydrocodone 10 mg-acetaminophen 1 tab PO BID 08/04/23 03/29/25 325 mg tablet ondansetron 4 mg disintegrating 4 mg PO Q6H PRN Nausea And Vomiting 08/04/23 03/29/25 tablet bupropion HCl 200 mg tablet,12 hr 200 mg PO DAILY 02/03/24 03/29/25 sustained-release (Wellbutrin SR) famotidine 20 mg tablet 20 mg PO DAILY 02/03/24 03/29/25 vitamin A-vitamin C-vit E-min 1 tab PO DAILY 02/03/24 03/29/25 tablet (Ocutabs tablet) albuterol 90 mcg-budesonide 80 2 inh inhalation Q6H PRN COPD 04/17/24 03/29/25 mcg/actuation HFA aerosol inhaler (Airsupra) menthol 4 % topical gel (Biofreeze 1 applic topical TID PRN knee pain 04/17/24 03/29/25 (menthol)) atorvastatin 40 mg tablet 40 mg PO DAILY 06/30/24 03/29/25 carboxymethylcellulose sodium 1 drp ophthalmic (eye) BID 06/30/24 03/29/25 (Refresh Contacts eye drops) fluticasone fur. 100 mcg-umeclid 1 inh inhalation DAILY 06/30/24 03/29/25 62.5 mcg-vilant 25 mcg inhalat.powder (Trelegy Ellipta) pantoprazole 40 mg tablet,delayed 40 mg PO BID 06/30/24 03/29/25 release acetaminophen 325 mg tablet 650 mg PO Q4H PRN general 03/29/25 03/29/25 discomfort Previous Rx's ?Medication ?Instructions ?Recorded albuterol sulfate 2.5 mg/3 mL 2.5 mg (3 mL) inhalation Q4H PRN 02/03/24 (0.083 %) solution for nebulization shortness of breath or wheezing #90 mL Allergies Allergy/AdvReac Type Severity Reaction Status Date / Time Penicillins Allergy Unknown Verified 10/20/24 14:49 tiotropium (From Spiriva Allergy Unknown Verified 10/20/24 14:49 with HandiHaler) Review of Systems General: Reports: 10 or more systems reviewed and unremarkable except in HPI and below PFSH ED PFSH: Medical History (Updated 04/17/25 @ 05:12 by Tigre Zepeda DO) CAD (coronary artery disease) Chronic kidney disease Nicotine dependence Non-STEMI (non-ST elevated myocardial infarction) Delirium Dementia Acute respiratory failure with hypoxia and hypercapnia Acute exacerbation of chronic obstructive airways disease COPD (chronic obstructive pulmonary disease) Social History Smoking and tobacco/nicotine status: current every day tobacco/nicotine user Physical Exam Const: COMMON NORMALS: no acute distress, patient oriented x3, alert and well nourished HENMT: COMMON NORMALS: normocephalic HEAD & SCALP: normocephalic Eye: COMMON NORMALS: Equal, round and reactive pupils present, EOMs intact bilaterally and conjunctivae normal CONJUNCTIVA: Yes conjunctivae normal PUPIL: Yes Equal, round and reactive pupils present Neck/C-Spine: COMMON NORMALS: full ROM, no lymphadenopathy, supple, no meningeal signs, no JVD and Thyroid normal THYROID: Thyroid normal Chest: COMMONS NORMALS: normal inspection of the chest and normal palpation of entire chest wall Resp: COMMON NORMALS: normal respiratory effort, No retractions, No use of accessory muscles, clear to auscultation bilaterally and percussion normal AUSCULTATION: clear to auscultation bilaterally PERCUSSION: percussion normal Cardio: COMMON NORMALS: no JVD GI: COMMON NORMALS: Normal to inspection, nondistended, normoactive bowel sounds present, Soft to palpation, non-tender, No hepatosplenomegaly present, no masses and no bruits PALPATION: Yes Soft to palpation and Yes No hepatosplenomegaly present Extremity: NARRATIVE EXTREMITY EXAM: Pain to palpation over 4/5th Metacarpal Neuro: COMMON NORMALS: patient oriented x3 SENSORIUM/ORIENTATION: Yes alert MENINGEAL SIGNS: Yes no meningeal signs Skin: COMMON NORMALS: no rashes or lesions noted, turgor normal and no jaundice GENERAL SKIN EXAM: no rashes or lesions noted, turgor normal and other (Small avulsion type lesion on scalp - not bleeding) Course Vital Signs: Vital signs: Vital Signs Temperature 97.9 F 04/17/25 02:52 Pulse Rate 81 04/17/25 04:43 Respiratory Rate 17 04/17/25 02:52 Blood Pressure 116/67 04/17/25 04:43 Pulse Oximetry 97 04/17/25 04:43 Oxygen Delivery Me thod Nasal Cannula 04/17/25 02:52 Oxygen Flow Rate 2 04/17/25 02:52 MDM - Fall Medical Decision Making 1. Hand/Wrist Pain Secondary to Fall - X-ray of the hand and wrist ordered to rule out fracture - Based on initial assessment, injury likely to heal without significant intervention - Will review imaging results and adjust treatment plan accordingly - Patient education provided regarding expected course of healing 2. Fall Risk - Patient fell while asleep, suggesting possible need for fall risk assessment - Consider home safety evaluation if falls are recurrent - No evidence of syncope or other concerning etiology for fall at this time Patients head CT is negative. Fall precautions Lab Data Radiology Impressions Hand X-Ray 04/17/25 03:24 IMPRESSION: Fracture of the mid shaft of the 4th metacarpal with 4 mm of overlap and 1/4 shaft with radial displacement of distal fragment. Head CT 04/17/25 03:24 IMPRESSION: No acute intracranial findings. All radiology interpretation(s) finalized by discharge Discharge Plan Discharge Patient Disposition: Home Clinical Impression: Closed head injury, Fall, Fracture, metacarpal shaft Condition: Stable Prescriptions: No Action hydrocodone-acetaminophen 10-325 mg tablet 1 tab PO BID ondansetron 4 mg Tablet,Disintegrating 4 mg PO Q6H PRN (Reason: Nausea And Vomiting) famotidine 20 mg Tablet 20 mg PO DAILY Ocutabs Tablet 1 tab PO DAILY bupropion HCl [Wellbutrin SR] 200 mg tablet sustained-release 12 hr 200 mg PO DAILY albuterol sulfate 2.5 mg /3 mL (0.083 %) solution for nebulization 2.5 mg INHALATION Q4H PRN (Reason: shortness of breath or wheezing) Qty: 90 0RF Biofreeze (menthol) 4 % Gel 1 applic TOPICAL TID PRN (Reason: knee pain) Airsupra 90-80 mcg/actuation HFA aerosol inhaler 2 inh INHALATION Q6H PRN (Reason: COPD) atorvastatin 40 mg tablet 40 mg PO DAILY pantoprazole 40 mg tablet,delayed release (DR/EC) 40 mg PO BID Refresh Contacts Drops 1 drp OPHTHALMIC (EYE) BID Trelegy Ellipta 100-62.5-25 mcg blister with device 1 inh INHALATION DAILY aspirin 81 mg Tablet,Delayed Release (Dr/Ec) 81 mg PO QAM ropinirole 0.5 mg tablet 0.5 mg PO BEDTIME montelukast 10 mg tablet 10 mg PO BEDTIME bisacodyl [Dulcolax (bisacodyl)] 5 mg Tablet,Delayed Release (Dr/Ec) 20 mg PO DAILY PRN (Reason: after mom for no bm) sertraline 50 mg tablet 75 mg PO BEDTIME loratadine 10 mg Tablet 10 mg PO QAM sertraline 100 mg tablet 100 mg PO BEDTIME acetaminophen 325 mg Tablet 650 mg PO Q4H PRN (Reason: general discomfort) Discharge Orders: Discharge ED (Routine); Ordered 04/17/25 Ordered By: Tigre Zepeda Referrals: Ricardo Atkinson, [Primary Care Provider, Internal Medicine] Discharge Diet: Advance as tolerated Discharge Activity: Resume usual activity Patient Instructions: Opioid Safety, Pain Management, Patient Portal & Delvis Instructions Activity Restrictions/Additional Instructions: 1. Take ibuprofen and/or Tylenol and ice on and off the affected area. 2. Follow-up with orthopedics next week for recheck and further evaluation of fracture and ongoing management. 3. Return to the emergency department for new or worsening symptoms. 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
--- NOTE | 2025-04-17 03:24 | XRR_ITS ---
PROCEDURE INFORMATION: Exam: XR Right Hand Exam date and time: 04/17/2025 4:46 AM Age: 74 years old Clinical indication: Injury or trauma; Fall; Blunt trauma (contusions or hematomas); Hand; Right; Additional info: Pain /fall TECHNIQUE: Imaging protocol: Radiologic exam of the right hand. Views: 3 or more views. COMPARISON: No relevant prior studies available. FINDINGS: Bones/joints: Fracture of the mid shaft of the 4th metacarpal with 4 mm of overlap and 1/4 shaft with radial displacement of distal fragment. Soft tissues: Normal. XR/XR hand RT min 3V* [id number] IMPRESSION: Fracture of the mid shaft of the 4th metacarpal with 4 mm of overlap and 1/4 shaft with radial displacement of distal fragment.
--- NOTE | 2025-04-17 03:24 | CTR_ITS ---
PROCEDURE INFORMATION: Exam: CT Head Without Contrast Exam date and time: 04/17/2025 4:28 AM Age: 74 years old Clinical indication: Injury or trauma; Fall; Blunt trauma (contusions or hematomas) TECHNIQUE: Imaging protocol: Computed tomography of the head without contrast. Radiation optimization: All CT scans at this facility use at least one of these dose optimization techniques: automated exposure control; mA and/or kV adjustment per patient size (includes targeted exams where dose is matched to clinical indication); or iterative reconstruction. COMPARISON: CT head wo con* [id number] 04/14/2025 7:28 AM RADIATION DOSE METRICS: Total DLP (mGy-cm): 1097.6 FINDINGS: Brain: Generalized global atrophy. No intracranial masses or mass effect. No midline shift. No abnormal extra-axial collections. No acute intracranial hemorrhage. Patchy hypodensity in the periventricular and subcortical white matter in keeping with chronic microvascular ischemic changes. Cerebral ventricles: Prominence of the ventricles commensurate with atrophy. No andi hydrocephalus. Paranasal sinuses: Visualized sinuses are unremarkable. No fluid levels. Mastoid air cells: Visualized mastoid air cells are well aerated. Bones: Unremarkable. No acute fracture. Soft tissues: Soft tissue swelling over the forehead noted. Vasculature: There is intracranial atherosclerosis most prominent at the carotid siphons. CT/CT head wo con* [id number] IMPRESSION: No acute intracranial findings.
== END 2025-04-17 08:55 | disposition home or self-care (01) ==
PROVIDERS: Emergency Provider Family Medicine; PCP Internal Medicine
DX: S09.8XXA Other specified injuries of head, initial encounter (principal); W19.XXXA Unspecified fall, initial encounter; S62.324A Displaced fracture of shaft of fourth metacarpal bone, right hand, initial encounter for closed fracture; Z79.82 Long term (current) use of aspirin; J44.9 Chronic obstructive pulmonary disease, unspecified; I25.10 Atherosclerotic heart disease of native coronary artery without angina pectoris; N18.9 Chronic kidney disease, unspecified
CPT/HCPCS: 29125; 70450; 73130; 99284

== ENCOUNTER → 2025-04-28 14:38 | Outpatient (BNVA) | payer MEDICARE, MEDICAID, SELFPAY | PROVIDERS: PCP Internal Medicine; Visit Provider Internal Medicine Cardiovascular Disease | DX: I34.81 Nonrheumatic mitral (valve) annulus calcification (principal); I35.9 Nonrheumatic aortic valve disorder, unspecified; J44.9 Chronic obstructive pulmonary disease, unspecified; F17.200 Nicotine dependence, unspecified, uncomplicated | CPT/HCPCS: 99204 ==